=== PATIENT | female | born 1930 ===

== ENCOUNTER 2016-10-21 15:18 | Inpatient (IN) | payer MEDICARE, OTHER ==
[2016-10-21 15:18] VITALS: BMI 27.8
[2016-10-21] MEDS ORDERED: Albuterol-Ipratrop 3 mg / 0.5 (3 ml) UD ONE (15:33)
[2016-10-21] MEDS ORDERED: Albuterol-Ipratrop 3 mg / 0.5 (3 ml) UD IH STA ×3 (15:44→16:59)
[2016-10-21] MEDS ORDERED: Sodium Chloride 0.9% 1,000 ML IV STA (15:51)
--- NOTE | 2016-10-21 15:59 | ED PDOC ---
HPI: SOB/CHF/COPD Time Seen by Provider: 10/21/16 15:26 Chief Complaint (Nursing): Respiratory Distress Chief Complaint (Provider): Respiratory Distress History Per: Patient History/Exam Limitations: no limitations Onset/Duration Of Symptoms: Days (x3) Current Symptoms Are (Timing): Still Present Additional Complaint(s): 15:35 Esther Negrete is an 87 year old female with a past medical history of asthma, type II diabetes, CHF, hypertension, and colitis that presents to the ED with a chief complaint of a productive cough, congestion, shortness of breath, and epigastric abdominal pain that she has been experiencing for the past three days. Patient states that she cannot describe the color of her productive cough , and denies any chest pain and fever. PMD: Amandeep Calhoun MD Past Medical History Reviewed: Historical Data, Nursing Documentation, Vital Signs Vital Signs: Last Vital Signs Temp 101.5 F H 10/21/16 15:41 Pulse 110 H 10/21/16 17:42 Resp 20 10/21/16 17:42 BP 139/60 10/21/16 17:42 Pulse Ox 94 L 10/21/16 16:07 - Medical History PMH: Anxiety, Arthritis, Asthma, Diabetes, HTN, Hypercholesterolemia Denies: HIV, Chronic Kidney Disease - Surgical History Surgical History: Appendectomy - Family History Family History: States: Unknown Family Hx - Home Medications Home Medications: Ambulatory Orders Medication Instructions Recorded Atorvastatin [Lipitor] 10 mg PO HS 10/21/16 Carvedilol [Coreg] 6.25 mg PO Q12 10/21/16 Enalapril Maleate [Vasotec] 10 mg PO DAILY 10/21/16 Ergocalciferol (Vitamin D2) 50,000 unit PO QWK 10/21/16 [Vitamin D2] Furosemide [Lasix] 40 mg PO BID 10/21/16 Insulin Glargine, Recombina 15 unit SC HS 10/21/16 [Lantus] Levothyroxine [Synthroid] 125 mcg PO DAILY 10/21/16 Losartan [Cozaar] 50 mg PO DAILY 10/21/16 Mirtazapine [Remeron] 15 mg PO HS 10/21/16 Montelukast [Singulair] 10 mg PO DAILY 10/21/16 Pantoprazole Sodium [Protonix] 40 mg PO DAILY 10/21/16 Potassium Chloride [K-Dur 20] 20 meq PO DAILY 10/21/16 Zolpidem [Ambien] 5 mg PO HS 10/21/16 - Allergies Allergies/Adverse Reactions: Allergies Allergy/AdvReac Type Severity Reaction Status Date / Time Penicillins Allergy RASH Verified 08/16/16 17:47 Review of Systems Constitutional: Negative for: Fever ENT: Positive for: Nose Congestion Cardiovascular: Negative for: Chest Pain Respiratory: Positive for: Cough, Shortness of Breath Physical Exam - Reviewed Nursing Documentation Reviewed: Yes Vital Signs Reviewed: Yes - Physical Exam Appears: Positive for: Non-toxic, No Acute Distress Head Exam: Positive for: ATRAUMATIC, NORMOCEPHALIC Skin: Positive for: Normal Color, Warm, Dry Cardiovascular/Chest: Positive for: Tachycardia Respiratory: Positive for: Rhonchi (bilaterally), Respiratory Distress (mild) Pulses-Dorsalis Pedis (L): 2+ Pulses-Dorsalis Pedis (R): 2+ Pulses-Post. Tibialis (L): 2+ Pulses-Post. Tibialis (R): 2+ Gastrointestinal/Abdominal: Positive for: Soft, Tenderness (in epigastric area) Extremity: Positive for: Swelling (bilaterally in lower extremities ), Other (1+ /2+ pulses in lower extremities bilaterally). Negative for: Calf Tenderness Neurologic/Psych: Positive for: Alert, Oriented - Laboratory Results Result Diagrams: 10/21/16 16:09 10/21/16 16:09 - ECG O2 Sat by Pulse Oximetry: 94 (RA) Pulse Ox Interpretation: Normal - Critical Care Total Time (In Min): 30 Medical Decision Making Medical Decision Makin:44 Initial Impression: Respiratory Distress/Epigastric Abdominal Pain Initial Plan: * CMP * CBC * Blood Culture * ED Urine Dipstick * Albuterol 3 mL IH * VBG Shock Panel * Chest X-Ray * ECG * Pre Flow Pre/Post Tx * Reevaluation Scribe Attestation: Documented by Leora Ibarra, acting as a scribe for Rubén Diaz MD. Provider Scribe Attestation: All medical record entries made by the Scribe were at my direction and personally dictated by me. I have reviewed the chart and agree that the record accurately reflects my personal performance of the history, physical exam, medical decision making, and the department course for this patient. I have also personally directed, reviewed, and agree with the discharge instructions and disposition. Disposition - Clinical Impression Clinical Impression: Pneumonia, Severe sepsis - Patient ED Disposition Is Patient to be Admitted: Yes - Disposition Disposition Time: 18:08 Condition: GUARDED - Pt Status Changed To: Hospital Disposition Of: Inpatient - Admit Certification Admit to Inpatient:: After my assessment, the patient will require hospitalization for at least two midnights. This is because of the severity of symptoms shown, intensity of services needed, and/or the medical risk in this patient being treated as an outpatient. - POA Present On Arrival: None
[2016-10-21] MEDS ORDERED: Vancomycin 1 g Inj ONE (16:06)
[2016-10-21] MEDS ORDERED: Piperacillin/Tazobact 3.375 gm Inj IVPB ONE (16:06)
[2016-10-21 16:27] LABS: VENOUS BLOOD GAS BASE EXCESS 3.6 mmol/L (0.0-2.0); VENOUS BLOOD GAS PCO2 61 mmHg (40-60); VENOUS BLOOD PH 7.32 (7.32-7.43)
--- NOTE | 2016-10-21 16:30 | RAD ---
HISTORY: Cough COMPARISON: 08/17/2016 FINDINGS: LUNGS: There is bibasilar airspace disease. . PLEURA: There are small pleural effusions the No pneumothorax apparent. CARDIOVASCULAR: Normal. OSSEOUS STRUCTURES: There is degenerative osteoarthrosis in the glenohumeral joints. VISUALIZED UPPER ABDOMEN: Normal. OTHER FINDINGS: None. IMPRESSION: Bibasilar airspace disease and small pleural effusions.
[2016-10-21 16:41] LABS: BASO % 0.2 % (0.0-2.0); BILIRUBIN,TOTAL 0.8 mg/dl (0.2-1.3); CALCIUM 9.2 mg/dL (8.4-10.2); EOS % 0.2 % (0.0-4.0); HEMATOCRIT 38.6 % (34.0-47.0); LYMPH # 1.8 K/uL (1.0-4.3); LYMPH % 14.1 % (20.0-40.0); MEAN CELL VOLUME 87.5 fl (81.0-99.0); MEAN CORPUSCULAR HEMOGLOBIN 27.3 pg (27.0-31.0); MEAN CORPUSCULAR HGB CONC 31.2 g/dL (33.0-37.0); MEAN PLATELET VOLUME 8.8 fl (7.2-11.7); MONO # 0.6 K/uL (0.0-0.8); MONO % 4.9 % (0.0-10.0); NEUT # 10.3 K/uL (1.8-7.0); NEUT % 80.6 % (50.0-75.0); NRBC % 0.1 % (0.0-0.0); RED CELL DISTRIBUTION WIDTH 16.5 % (11.5-14.5); TOTAL PROTEIN 8.3 G/DL (6.3-8.2); WHITE BLOOD COUNT 12.7 K/uL (4.8-10.8)
--- NOTE | 2016-10-21 17:56 | CT ---
PROCEDURE: CT Abdomen and Pelvis without intravenous contrast HISTORY: r/o kidney stone COMPARISON: 08/16/2016 TECHNIQUE: CT scan of the abdomen and pelvis was performed without intravenous administration of contrast. Oral contrast was not administered. Coronal and sagittal reformatted images were obtained. Radiation dose: Total exam DLP = 879.24 mGy-cm. FINDINGS: LOWER THORAX: There is interval development of confluent airspace disease in the right lower lobe and to a lesser extent in the left lower lobe. LIVER: The liver is normal in size. There is no biliary ductal dilatation. GALLBLADDER AND BILE DUCTS: There is a tiny calcified gallstone. PANCREAS: There is mild diffuse atrophy of the pancreas. No calcifications or ductal dilatation. SPLEEN: The spleen is normal in size. ADRENALS: Both adrenal glands are normal in size without discrete nodule. KIDNEYS AND URETERS: There is mild cortical atrophy in both kidneys. No hydronephrosis or nephrolithiasis. There is a probable tiny hemorrhagic cyst in the right kidney and a small exophytic cortical cyst in the left kidney. VASCULATURE: The aorta is normal in caliber. BOWEL: The small bowel loops are normal in caliber. There is mild sigmoid diverticulosis without CT evidence for acute diverticulitis. APPENDIX: No evidence of inflammatory changes in the right lower quadrant. The appendix is surgically absent. PERITONEUM: No free fluid. No free air. LYMPH NODES: No enlarged lymph nodes. BLADDER: Grossly normal in appearance. REPRODUCTIVE: There is age-appropriate atrophy of the uterus. No adnexal masses. . BONES: Status post bilateral hip arthroplasty. No acute fracture. OTHER FINDINGS: None. IMPRESSION: 1. No acute abdominal or pelvic abnormality. Mild sigmoid diverticulosis without CT evidence for acute diverticulitis. No evidence of bowel obstruction. 2. Suspect right lower lobe pneumonia and also suspected is mild left lower lobe pneumonia.
[2016-10-21] MEDS ORDERED: Aztreonam 1 GM in Sodium Chloride 0.9% 100 ML IVPB STA (18:04)
[2016-10-21] MEDS ORDERED: Ciprofloxacin 400mg/200ml D5W 200 ML IVPB STA (18:06)
[2016-10-21] MEDS ORDERED: Ciprofloxacin 400mg/200ml D5W 200 ML IVPB ONE (18:24)
--- NOTE | 2016-10-21 18:48 | CP.CCUPN ---
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 In ER, found to be febrile to 101.5F, BP 130/ 68, HR 125, RR 20-25, 91% on RA. Subsequently placed on BIPAP support, 10/5 40% with 95% SPO2. Poor historian and primarily moaning now, had c/o abdominal discomfort earlier and underwent non-contrast CTAP with no significant abd pathology to account for abd discomfort. CTAP confirmed bilateral lower lobe R worse than L pneumonitis. In ER, given empiric doses of Vanco, Cipro and Azactam. She is penicillin allergic. No indwelling [place] noted from [place]. IVFs started with NSS, no fluid challenges given. [place] Meds: Ambien, Coreg, Losartan, Vasotec, KCL, Lasix, Lipitor, Protonix, Remeron, Singulair, Synthroid, Lantus, Vit D. PMH: Asthma, DM II, HTN, Hyperlipidemia, Colitis with diarrhea, L hip repair 2016. SH: denies tobacco, nor any h/o ETOH use. FH: no significant early deaths from heart, liver, kidney, pulm or cancer disease. ROS: as above , no other pertinent negs or positives on 12 system review. No other distress noted: EXAM- HEENT: no icterus, pupils equal and reactive, no nystagmus NECK: no visible JVD, supple, carotids equal upstroke bilat/no bruits CHEST: decreased BS bases, no wheezes audible HEART: regular, distant, S1S2, no murmur audible, no rubs. ABD: soft, no increased distention, no focal tenderness, no HSM. BS hypoactive , EXT: legs show + edema, no peripheral/ digital cyanosis, no calf tenderness or palpable cords, distal pulses intact and symmetrical NEURO: no gross focal motor deficits. 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 CTAP sC: results reviewed / film reviewed. Assessment / Major Problems: 1. Acute Resp Insuff 2 Pneumonitis 2. Sepsis without Shock state 3. Azotemia / Dehydration, r/o VERITO 4. Uncontrolled DMII, r/o hyperosmolar state 5. Azotemia, r/o VERITO versus CKD PLAN: 1. Full resuscitation status noted, on BiPAP support now. Check ABG. Advance to MV support if deteriorates further unless other Advance Directives known. 2. Mild anasarca noted, but no other clinical CHF evident, would continue hydration and fluid challenge prn for any oliguria. 3. Empiric abx coverage noted. Blood cultures obtained in ER. Get urine cx, and sputum cx if feasible. 4. Elevated lactate 2 hypoxemia, no hypotension / shock state nor other evidence of hypoperfusion noted. Repeat 4H Lactate pending. 5. Hold ARB,and ACEi, K supplements, Remeron, Ambien for now. 6. Obtain serum osmolality, maintain normoglycemia. 7. TFTs with TSH and free t4 8. Continue Duonebs for now. IV Steroids if hypercapnia / wheezing evident.
[2016-10-21] MEDS: Albuterol-Ipratrop 3 mg / 0.5 (3 ml) UD INH SCH (20:08)
[2016-10-21] MEDS: Aztreonam 1 GM in Sodium Chloride 0.9% 100 ML IVPB SCH (21:26)
[2016-10-21 21:27] LABS: FREE T4 2.27 ng/dL (0.78-2.19)
[2016-10-21 22:59] LABS: RBC URINE 2 /hpf (0-3); URINE BACTERIA RARE (<OCC); URINE BILIRUBIN NEGATIVE (NEGATIVE); URINE BLOOD NEGATIVE (NEGATIVE); URINE COLOR AMBER (YELLOW); URINE GLUCOSE (UA) 50 mg/dL (Normal); URINE KETONE NEGATIVE (NEGATIVE); URINE LEUKOCYTE ESTERASE NEG Leu/uL (Negative); URINE PROTEIN 30 mg/dL (NEGATIVE); URINE UROBILINOGEN 0.2-1.0 mg/dL (0.2-1.0); WBC URINE 1 /hpf (0-5)
[2016-10-21] MEDS: Insulin Regular 100 units/ml SC SCH (23:29)
[2016-10-22 02:52] LABS: ABG ALLEN TEST YES; ABG MECHANICAL RATE 16; ARTERIAL BLOOD GAS HCO3 25.6 mmol/L (21-28); ARTERIAL BLOOD GAS MODE BiPAP; ARTERIAL BLOOD GAS O2 CAPACITY 13.3 mL/dL (16-24); ARTERIAL BLOOD GAS O2 CONTENT 12.6 ML/dL (15-23); ARTERIAL BLOOD GAS PO2 61 mm/Hg (80-100); ARTERIAL BLOOD HGB O2 SAT 92.4 % (95.0-98.0); CARBOXYHEMOGLOBIN 1.6 % (0.5-1.5)
[2016-10-22 05:03] LABS: ABG ALLEN TEST YES; ABG MECHANICAL RATE 16; ARTERIAL BLOOD GAS HCO3 25.1 mmol/L (21-28); ARTERIAL BLOOD GAS MODE BiPAP; ARTERIAL BLOOD GAS O2 CAPACITY 13.1 mL/dL (16-24); ARTERIAL BLOOD GAS O2 CONTENT 12.7 ML/dL (15-23); ARTERIAL BLOOD GAS PH 7.36 (7.35-7.45); ARTERIAL BLOOD GAS PO2 72 mm/Hg (80-100); ARTERIAL BLOOD HGB O2 SAT 94.4 % (95.0-98.0); CARBOXYHEMOGLOBIN 1.3 % (0.5-1.5); HHB 3.1 % (0.0-5.0); METHEMOGLOBIN 1.3 % (0.0-3.0)
[2016-10-22] MEDS ORDERED: DOPamine 400mg/250ml D5W 250 ML IV ONE (06:43)
[2016-10-22] MEDS: Insulin Regular 100 units/ml SC SCH ×4 (06:45→22:31)
[2016-10-22] MEDS: Albuterol-Ipratrop 3 mg / 0.5 (3 ml) UD INH SCH ×4 (07:29→19:44)
[2016-10-22 07:32] LABS: ALB/GLOB RATIO 1.1 (1.0-2.1); BILIRUBIN,TOTAL 0.6 mg/dl (0.2-1.3); CALCIUM 8.5 mg/dL (8.4-10.2); POTASSIUM 4.8 MMOL/L (3.6-5.0); TOTAL PROTEIN 7.1 G/DL (6.3-8.2)
[2016-10-22 07:41] LABS: PARTIAL THROMBOPLASTIN TIME 33.1 SECONDS (23.3-32.5)
[2016-10-22 07:44] LABS: BASO % 0.4 % (0.0-2.0); EOS % 0.1 % (0.0-4.0); HEMATOCRIT 30.8 % (34.0-47.0); LYMPH # 1.2 K/uL (1.0-4.3); LYMPH % 25.3 % (20.0-40.0); MEAN CORPUSCULAR HGB CONC 31.6 g/dL (33.0-37.0); MEAN PLATELET VOLUME 9.1 fl (7.2-11.7); MONO # 0.3 K/uL (0.0-0.8); NEUT # 3.3 K/uL (1.8-7.0); NEUT % 67.2 % (50.0-75.0); NRBC % 0.1 % (0.0-0.0); RED CELL DISTRIBUTION WIDTH 16.1 % (11.5-14.5)
[2016-10-22 07:45] LABS: MEAN CELL VOLUME 85.3 fl (81.0-99.0); WHITE BLOOD COUNT 4.9 K/uL (4.8-10.8)
[2016-10-22] MEDS ORDERED: Midazolam 2 MG/2 ML VIAL IV ONE ×2 (09:25→13:26)
[2016-10-22] MEDS ORDERED: Midazolam 2 MG/2 ML VIAL ONE (09:27)
--- NOTE | 2016-10-22 09:44 | RAD ---
HISTORY: f/u [facility] COMPARISON: No prior. FINDINGS: LUNGS: Bilateral lower lobe infiltrates right greater than left. Central pulmonary vasculature is slightly increased. PLEURA: No significant pleural effusion identified, no pneumothorax apparent. CARDIOVASCULAR: Cardiomegaly. OSSEOUS STRUCTURES: Degenerative changes both shoulder girdles. VISUALIZED UPPER ABDOMEN: Normal. OTHER FINDINGS: None. IMPRESSION: Bilateral lower lobe infiltrates right greater than left
--- NOTE | 2016-10-22 10:19 | CP.CCUPN ---
CCU Subjective - Physician Review Events Since Last Encounter (Free Text): 10/22/16 10:12 awake and responsive, on Bipap, maintaining sat > 95%, was hypotensive last night, dopamin infusion was started last night through a peripheral line, pt needed a central line , I was about to do it but nursing surgical services director asked if she could do it she needed more procedure and she performed the procedure while I was in the room with her supervising her. Procedure went uneventful although pt needed ativan and versed as she was not cooperative and was restless. Waiting for CXR to confirm the placement and to r/p pneumo before using it. Pt has ST on dopamine , will siwtch to levophed and if TC persisted , will switch to neosynephrine. MARK has been well manintained but due to hypotensive episodes, alctic acid is still high, also due to ATN, pt is oliguric and has rising bun/ rn or lpn. Pt was givem 1700 cc NS until last night with no urine output, will do renal US or bladder scan to r/o obstruction, which is not likley. Will not give more fluid , rather she needs diuretics has she has pulm congestion, with h/o cardiomyopathy and low EF. CCU Objective - Vital Signs / Intake & Output Vital Signs (Last 4 hours): Vital Signs Temp Pulse Resp BP Pulse Ox 10/22/16 08:00 99.5 F 133 H 22 112/54 L 92 L 10/22/16 07:30 136 H Intake and Output (Last 8hrs): Intake & Output 10/21/16 10/22/16 10/22/16 22:59 06:59 14:59 Intake Total 300 433 Output Total 40 Balance 300 393 Weight 160 lb Intake: IV 200 408 Intake, Piggyback 100 Oral 25 Output: Urine 40 Urethral ([place]) 40 - Physical Exam Narrative Physical Exam (Free Text): 10/22/16 10:19 P/E Necj: JVD:+ve Lungss' Scattered ronchi, bilateral basal crackles Abdomen: soft, non-tender Ext: No edema heart: no gallop Ext: no edema - Medications Active Medications: Active Medications Generic Name Dose Route Start Last Admin Trade Name Freq PRN Reason Stop Dose Admin Acetaminophen 650 mg 10/22/16 05:22 10/22/16 05:00 Tylenol 650 Mg Supp [place] 650 mg Q6 PRN Administration Fever >100.4 F Albuterol/Ipratropium 3 ml 10/21/16 20:00 10/22/16 07:29 Duoneb 3 Mg/0.5 Mg (3 Ml) Ud INH 3 ml RQID MEERA Administration Heparin Sodium (Porcine) 5,000 units 10/21/16 21:00 10/22/16 08:31 Heparin SC 5,000 units Q12 MEERA Administration Protocol Aztreonam 1 gm/ Sodium 100 mls @ 100 mls/hr 10/21/16 21:00 10/21/16 21:26 Chloride IVPB Not Given Q12 MEERA Ciprofloxacin 200 mls @ 200 mls/hr 10/22/16 09:00 Cipro 400mg/200ml Dsw IVPB DAILY [facility] Dopamine HCl/Dextrose 250 mls @ 13.608 mls/hr 10/22/16 06:43 10/22/16 06:49 Dopamine 400mg/250ml D5w IV 10/23/16 01:05 13.608 mls/hr .[id number] ONE Administration Protocol 5 MCG/KG/MIN Insulin Human Regular 0 units 10/21/16 23:00 10/22/16 06:45 Humulin R SC 3 u ACCU-CHECK [facility] Administration Protocol Morphine Sulfate 1 mg 10/21/16 21:13 10/21/16 21:21 Morphine IVP 1 mg Q6 PRN Administration Pain, severe (8-10) Pantoprazole Sodium 40 mg 10/22/16 09:00 10/22/16 08:31 Protonix Inj IVP 40 mg DAILY [facility] Administration - Patient Studies Lab Studies: Lab Studies 10/22/16 10/22/16 10/22/16 Range/Units 06:00 05:14 04:48 WBC 4.9 D (4.8-10.8) K/uL RBC 3.61 L (3.80-5.20) Mil/uL Hgb 9.7 L D (12.0-16.0) g/dL Hct 30.8 L (34.0-47.0) % MCV 85.3 D (81.0-99.0) fl MCH 27.0 (27.0-31.0) pg MCHC 31.6 L (33.0-37.0) g/dL RDW 16.1 H (11.5-14.5) % Plt Count 168 (130-400) K/uL MPV 9.1 (7.2-11.7) fl Neut % (Auto) 67.2 (50.0-75.0) % Lymph % (Auto) 25.3 (20.0-40.0) % Ross % (Auto) 7.0 (0.0-10.0) % Eos % (Auto) 0.1 (0.0-4.0) % Baso % (Auto) 0.4 (0.0-2.0) % Neut # 3.3 (1.8-7.0) K/uL Lymph # 1.2 (1.0-4.3) K/uL Ross # 0.3 (0.0-0.8) K/uL Eos # 0.0 (0.0-0.7) K/uL Baso # 0.0 (0.0-0.2) K/uL PT 13.6 H (9.6-11.2) SECONDS INR 1.31 H (0.92-1.08) APTT 33.1 H (23.3-32.5) SECONDS pCO2 46 H (35-45) mm/Hg pO2 72 L (80-100) mm/Hg HCO3 25.1 (21-28) mmol/L ABG pH 7.36 (7.35-7.45) ABG Total CO2 27.4 (22-28) mmol/L ABG O2 Saturation 96.8 (95-98) % ABG O2 Content 12.7 L (15-23) ML/dL ABG Base Excess 0.3 (-2.0-3.0) mmol/L ABG Hemoglobin 9.5 L (11.7-17.4) g/dL ABG Carboxyhemoglobin 1.3 (0.5-1.5) % POC ABG HHb (Measured) 3.1 (0.0-5.0) % ABG Methemoglobin 1.3 (0.0-3.0) % ABG O2 Capacity 13.1 L (16-24) mL/dL Tony Test Yes A-a O2 Difference 298.0 mm/Hg Hgb O2 Saturation 94.4 L (95.0-98.0) % Vent Mode Bipap Mechanical Rate 16 FiO2 60.0 % Inspiratory BiPAP 12 Expiratory BiPAP 6 Blood Gas Notified Time 503 Sodium 134 (132-148) mmol/l Potassium 4.8 (3.6-5.0) MMOL/L Chloride 94 L (98-107) mmol/L Carbon Dioxide 26 (22-30) mmol/L Anion Gap 19 (10-20) BUN 46 H (7-17) mg/dl Creatinine 3.9 H (0.7-1.2) mg/dL Est GFR ( Amer) 13 Est GFR (Non-Af Amer) 11 POC Glucose (mg/dL) 266 H (65-110) mg/dL Random Glucose 345 H (65-105) mg/dL Serum Osmolality 310 H (272-300) mosm/kg Lactic Acid (0.7-2.1) MMOL/L Calcium 8.5 (8.4-10.2) mg/dL Total Bilirubin 0.6 (0.2-1.3) mg/dl AST 26 (14-36) U/L ALT 28 (9-52) U/L Alkaline Phosphatase 62 (38-126) U/L Total Protein 7.1 (6.3-8.2) G/DL Albumin 3.7 (3.5-5.0) g/dL Globulin 3.4 (2.2-3.9) gm/dL Albumin/Globulin Ratio 1.1 (1.0-2.1) Free T4 (0.78-2.19) ng/dL TSH 3rd Generation (0.46-4.68) mIU/ML Urine Color (YELLOW) Urine Clarity (Clear) Urine pH (5.0-8.0) Ur Specific [place] (1.003-1.030) Urine Protein (NEGATIVE) mg/dL Urine Glucose (UA) (Normal) mg/dL Urine Ketones (NEGATIVE) mg/dL Urine Blood (NEGATIVE) Urine Nitrate (NEGATIVE) Urine Bilirubin (NEGATIVE) Urine Urobilinogen (0.2-1.0) mg/dL Ur Leukocyte Esterase (Negative) [place]/uL Urine RBC (Auto) (0-3) /hpf Urine Microscopic WBC (0-5) /hpf Ur Squamous Epith Cells (0-5) /hpf Urine Bacteria (<OCC) Hyaline Casts (0-2) /hpf Influenza Typ A,B (EIA) (NEGATIVE) 10/22/16 10/22/16 10/21/16 Range/Units 03:18 02:49 22:19 WBC (4.8-10.8) K/uL RBC (3.80-5.20) Mil/uL Hgb (12.0-16.0) g/dL Hct (34.0-47.0) % MCV (81.0-99.0) fl MCH (27.0-31.0) pg MCHC (33.0-37.0) g/dL RDW (11.5-14.5) % Plt Count (130-400) K/uL MPV (7.2-11.7) fl Neut % (Auto) (50.0-75.0) % Lymph % (Auto) (20.0-40.0) % Ross % (Auto) (0.0-10.0) % Eos % (Auto) (0.0-4.0) % Baso % (Auto) (0.0-2.0) % Neut # (1.8-7.0) K/uL Lymph # (1.0-4.3) K/uL Ross # (0.0-0.8) K/uL Eos # (0.0-0.7) K/uL Baso # (0.0-0.2) K/uL PT (9.6-11.2) SECONDS INR (0.92-1.08) APTT (23.3-32.5) SECONDS pCO2 42 (35-45) mm/Hg pO2 61 L (80-100) mm/Hg HCO3 25.6 (21-28) mmol/L ABG pH 7.40 (7.35-7.45) ABG Total CO2 27.3 (22-28) mmol/L ABG O2 Saturation 94.9 L (95-98) % ABG O2 Content 12.6 L (15-23) ML/dL ABG Base Excess 1.0 (-2.0-3.0) mmol/L ABG Hemoglobin 9.7 L (11.7-17.4) g/dL ABG Carboxyhemoglobin 1.6 H (0.5-1.5) % POC ABG HHb (Measured) 5.0 (0.0-5.0) % ABG Methemoglobin 1.0 (0.0-3.0) % ABG O2 Capacity 13.3 L (16-24) mL/dL Tony Test Yes A-a O2 Difference 172.0 mm/Hg Hgb O2 Saturation 92.4 L (95.0-98.0) % Vent Mode Bipap Mechanical Rate 16 FiO2 40.0 % Inspiratory BiPAP 12 Expiratory BiPAP 6 Blood Gas Notified Time 252 Sodium (132-148) mmol/l Potassium (3.6-5.0) MMOL/L Chloride (98-107) mmol/L Carbon Dioxide (22-30) mmol/L Anion Gap (10-20) BUN (7-17) mg/dl Creatinine (0.7-1.2) mg/dL Est GFR ( Amer) Est GFR (Non-Af Amer) POC Glucose (mg/dL) (65-110) mg/dL Random Glucose (65-105) mg/dL Serum Osmolality (272-300) mosm/kg Lactic Acid 4.4 H* (0.7-2.1) MMOL/L Calcium (8.4-10.2) mg/dL Total Bilirubin (0.2-1.3) mg/dl AST (14-36) U/L ALT (9-52) U/L Alkaline Phosphatase (38-126) U/L Total Protein (6.3-8.2) G/DL Albumin (3.5-5.0) g/dL Globulin (2.2-3.9) gm/dL Albumin/Globulin Ratio (1.0-2.1) Free T4 (0.78-2.19) ng/dL TSH 3rd Generation (0.46-4.68) mIU/ML Urine Color Isabel (YELLOW) Urine Clarity Cloudy (Clear) Urine pH 5.0 (5.0-8.0) Ur Specific [place] 1.021 (1.003-1.030) Urine Protein 30 (NEGATIVE) mg/dL Urine Glucose (UA) 50 (Normal) mg/dL Urine Ketones Negative (NEGATIVE) mg/dL Urine Blood Negative (NEGATIVE) Urine Nitrate Negative (NEGATIVE) Urine Bilirubin Negative (NEGATIVE) Urine Urobilinogen 0.2-1.0 (0.2-1.0) mg/dL Ur Leukocyte Esterase Neg (Negative) [place]/uL Urine RBC (Auto) 2 (0-3) /hpf Urine Microscopic WBC 1 (0-5) /hpf Ur Squamous Epith Cells < 1 (0-5) /hpf Urine Bacteria Rare (<OCC) Hyaline Casts 3-5 H (0-2) /hpf Influenza Typ A,B (EIA) (NEGATIVE) 10/21/16 10/21/16 10/21/16 Range/Units 22:10 20:50 19:54 WBC (4.8-10.8) K/uL RBC (3.80-5.20) Mil/uL Hgb (12.0-16.0) g/dL Hct (34.0-47.0) % MCV (81.0-99.0) fl MCH (27.0-31.0) pg MCHC (33.0-37.0) g/dL RDW (11.5-14.5) % Plt Count (130-400) K/uL MPV (7.2-11.7) fl Neut % (Auto) (50.0-75.0) % Lymph % (Auto) (20.0-40.0) % Ross % (Auto) (0.0-10.0) % Eos % (Auto) (0.0-4.0) % Baso % (Auto) (0.0-2.0) % Neut # (1.8-7.0) K/uL Lymph # (1.0-4.3) K/uL Ross # (0.0-0.8) K/uL Eos # (0.0-0.7) K/uL Baso # (0.0-0.2) K/uL PT (9.6-11.2) SECONDS INR (0.92-1.08) APTT (23.3-32.5) SECONDS pCO2 (35-45) mm/Hg pO2 (80-100) mm/Hg HCO3 (21-28) mmol/L ABG pH (7.35-7.45) ABG Total CO2 (22-28) mmol/L ABG O2 Saturation (95-98) % ABG O2 Content (15-23) ML/dL ABG Base Excess (-2.0-3.0) mmol/L ABG Hemoglobin (11.7-17.4) g/dL ABG Carboxyhemoglobin (0.5-1.5) % POC ABG HHb (Measured) (0.0-5.0) % ABG Methemoglobin (0.0-3.0) % ABG O2 Capacity (16-24) mL/dL Tony Test A-a O2 Difference mm/Hg Hgb O2 Saturation (95.0-98.0) % Vent Mode Mechanical Rate FiO2 % Inspiratory BiPAP Expiratory BiPAP Blood Gas Notified Time Sodium (132-148) mmol/l Potassium (3.6-5.0) MMOL/L Chloride (98-107) mmol/L Carbon Dioxide (22-30) mmol/L Anion Gap (10-20) BUN (7-17) mg/dl Creatinine (0.7-1.2) mg/dL Est GFR ( Amer) Est GFR (Non-Af Amer) POC Glucose (mg/dL) 292 H (65-110) mg/dL Random Glucose (65-105) mg/dL Serum Osmolality (272-300) mosm/kg Lactic Acid 2.6 H (0.7-2.1) MMOL/L Calcium (8.4-10.2) mg/dL Total Bilirubin (0.2-1.3) mg/dl AST (14-36) U/L ALT (9-52) U/L Alkaline Phosphatase (38-126) U/L Total Protein (6.3-8.2) G/DL Albumin (3.5-5.0) g/dL Globulin (2.2-3.9) gm/dL Albumin/Globulin Ratio (1.0-2.1) Free T4 (0.78-2.19) ng/dL TSH 3rd Generation (0.46-4.68) mIU/ML Urine Color (YELLOW) Urine Clarity (Clear) Urine pH (5.0-8.0) Ur Specific [place] (1.003-1.030) Urine Protein (NEGATIVE) mg/dL Urine Glucose (UA) (Normal) mg/dL Urine Ketones (NEGATIVE) mg/dL Urine Blood (NEGATIVE) Urine Nitrate (NEGATIVE) Urine Bilirubin (NEGATIVE) Urine Urobilinogen (0.2-1.0) mg/dL Ur Leukocyte Esterase (Negative) [place]/uL Urine RBC (Auto) (0-3) /hpf Urine Microscopic WBC (0-5) /hpf Ur Squamous Epith Cells (0-5) /hpf Urine Bacteria (<OCC) Hyaline Casts (0-2) /hpf Influenza Typ A,B (EIA) Negative for flu a/b (NEGATIVE) 10/21/16 Range/Units 19:00 WBC (4.8-10.8) K/uL RBC (3.80-5.20) Mil/uL Hgb (12.0-16.0) g/dL Hct (34.0-47.0) % MCV (81.0-99.0) fl MCH (27.0-31.0) pg MCHC (33.0-37.0) g/dL RDW (11.5-14.5) % Plt Count (130-400) K/uL MPV (7.2-11.7) fl Neut % (Auto) (50.0-75.0) % Lymph % (Auto) (20.0-40.0) % Ross % (Auto) (0.0-10.0) % Eos % (Auto) (0.0-4.0) % Baso % (Auto) (0.0-2.0) % Neut # (1.8-7.0) K/uL Lymph # (1.0-4.3) K/uL Ross # (0.0-0.8) K/uL Eos # (0.0-0.7) K/uL Baso # (0.0-0.2) K/uL PT (9.6-11.2) SECONDS INR (0.92-1.08) APTT (23.3-32.5) SECONDS pCO2 (35-45) mm/Hg pO2 (80-100) mm/Hg HCO3 (21-28) mmol/L ABG pH (7.35-7.45) ABG Total CO2 (22-28) mmol/L ABG O2 Saturation (95-98) % ABG O2 Content (15-23) ML/dL ABG Base Excess (-2.0-3.0) mmol/L ABG Hemoglobin (11.7-17.4) g/dL ABG Carboxyhemoglobin (0.5-1.5) % POC ABG HHb (Measured) (0.0-5.0) % ABG Methemoglobin (0.0-3.0) % ABG O2 Capacity (16-24) mL/dL Tony Test A-a O2 Difference mm/Hg Hgb O2 Saturation (95.0-98.0) % Vent Mode Mechanical Rate FiO2 % Inspiratory BiPAP Expiratory BiPAP Blood Gas Notified Time Sodium (132-148) mmol/l Potassium (3.6-5.0) MMOL/L Chloride (98-107) mmol/L Carbon Dioxide (22-30) mmol/L Anion Gap (10-20) BUN (7-17) mg/dl Creatinine (0.7-1.2) mg/dL Est GFR ( Amer) Est GFR (Non-Af Amer) POC Glucose (mg/dL) (65-110) mg/dL Random Glucose (65-105) mg/dL Serum Osmolality 313 H (272-300) mosm/kg Lactic Acid (0.7-2.1) MMOL/L Calcium (8.4-10.2) mg/dL Total Bilirubin (0.2-1.3) mg/dl AST (14-36) U/L ALT (9-52) U/L Alkaline Phosphatase (38-126) U/L Total Protein (6.3-8.2) G/DL Albumin (3.5-5.0) g/dL Globulin (2.2-3.9) gm/dL Albumin/Globulin Ratio (1.0-2.1) Free T4 2.27 H (0.78-2.19) ng/dL TSH 3rd Generation 2.16 (0.46-4.68) mIU/ML Urine Color (YELLOW) Urine Clarity (Clear) Urine pH (5.0-8.0) Ur Specific [place] (1.003-1.030) Urine Protein (NEGATIVE) mg/dL Urine Glucose (UA) (Normal) mg/dL Urine Ketones (NEGATIVE) mg/dL Urine Blood (NEGATIVE) Urine Nitrate (NEGATIVE) Urine Bilirubin (NEGATIVE) Urine Urobilinogen (0.2-1.0) mg/dL Ur Leukocyte Esterase (Negative) [place]/uL Urine RBC (Auto) (0-3) /hpf Urine Microscopic WBC (0-5) /hpf Ur Squamous Epith Cells (0-5) /hpf Urine Bacteria (<OCC) Hyaline Casts (0-2) /hpf Influenza Typ A,B (EIA) (NEGATIVE) Laboratory Results - last 24 hr 10/21/16 10/21/16 10/21/16 19:00 19:54 20:50 WBC RBC Hgb Hct MCV MCH MCHC RDW Plt Count MPV Neut % (Auto) Lymph % (Auto) Ross % (Auto) Eos % (Auto) Baso % (Auto) Neut # Lymph # Ross # Eos # Baso # PT INR APTT pCO2 pO2 HCO3 ABG pH ABG Total CO2 ABG O2 Saturation ABG O2 Content ABG Base Excess ABG Hemoglobin ABG Carboxyhemoglobin POC ABG HHb (Measured) ABG Methemoglobin ABG O2 Capacity Tony Test A-a O2 Difference Hgb O2 Saturation Vent Mode Mechanical Rate FiO2 Inspiratory BiPAP Expiratory BiPAP Blood Gas Notified Time Sodium Potassium Chloride Carbon Dioxide Anion Gap BUN Creatinine Est GFR ( Amer) Est GFR (Non-Af Amer) POC Glucose (mg/dL) 292 H Random Glucose Serum Osmolality 313 H Lactic Acid 2.6 H Calcium Total Bilirubin AST ALT Alkaline Phosphatase Total Protein Albumin Globulin Albumin/Globulin Ratio Free T4 2.27 H TSH 3rd Generation 2.16 Urine Color Urine Clarity Urine pH Ur Specific [place] Urine Protein Urine Glucose (UA) Urine Ketones Urine Blood Urine Nitrate Urine Bilirubin Urine Urobilinogen Ur Leukocyte Esterase Urine RBC (Auto) Urine Microscopic WBC Ur Squamous Epith Cells Urine Bacteria Hyaline Casts Influenza Typ A,B (EIA) 10/21/16 10/21/16 10/22/16 22:10 22:19 02:49 WBC RBC Hgb Hct MCV MCH MCHC RDW Plt Count MPV Neut % (Auto) Lymph % (Auto) Ross % (Auto) Eos % (Auto) Baso % (Auto) Neut # Lymph # Ross # Eos # Baso # PT INR APTT pCO2 42 pO2 61 L HCO3 25.6 ABG pH 7.40 ABG Total CO2 27.3 ABG O2 Saturation 94.9 L ABG O2 Content 12.6 L ABG Base Excess 1.0 ABG Hemoglobin 9.7 L ABG Carboxyhemoglobin 1.6 H POC ABG HHb (Measured) 5.0 ABG Methemoglobin 1.0 ABG O2 Capacity 13.3 L Tony Test Yes A-a O2 Difference 172.0 Hgb O2 Saturation 92.4 L Vent Mode Bipap Mechanical Rate 16 FiO2 40.0 Inspiratory BiPAP 12 Expiratory BiPAP 6 Blood Gas Notified Time 252 Sodium Potassium Chloride Carbon Dioxide Anion Gap BUN Creatinine Est GFR ( Amer) Est GFR (Non-Af Amer) POC Glucose (mg/dL) Random Glucose Serum Osmolality Lactic Acid Calcium Total Bilirubin AST ALT Alkaline Phosphatase Total Protein Albumin Globulin Albumin/Globulin Ratio Free T4 TSH 3rd Generation Urine Color Isabel Urine Clarity Cloudy Urine pH 5.0 Ur Specific [place] 1.021 Urine Protein 30 Urine Glucose (UA) 50 Urine Ketones Negative Urine Blood Negative Urine Nitrate Negative Urine Bilirubin Negative Urine Urobilinogen 0.2-1.0 Ur Leukocyte Esterase Neg Urine RBC (Auto) 2 Urine Microscopic WBC 1 Ur Squamous Epith Cells < 1 Urine Bacteria Rare Hyaline Casts 3-5 H Influenza Typ A,B (EIA) Negative for flu a/b 10/22/16 10/22/16 10/22/16 03:18 04:48 05:14 WBC RBC Hgb Hct MCV MCH MCHC RDW Plt Count MPV Neut % (Auto) Lymph % (Auto) Ross % (Auto) Eos % (Auto) Baso % (Auto) Neut # Lymph # Ross # Eos # Baso # PT INR APTT pCO2 46 H pO2 72 L HCO3 25.1 ABG pH 7.36 ABG Total CO2 27.4 ABG O2 Saturation 96.8 ABG O2 Content 12.7 L ABG Base Excess 0.3 ABG Hemoglobin 9.5 L ABG Carboxyhemoglobin 1.3 POC ABG HHb (Measured) 3.1 ABG Methemoglobin 1.3 ABG O2 Capacity 13.1 L Tony Test Yes A-a O2 Difference 298.0 Hgb O2 Saturation 94.4 L Vent Mode Bipap Mechanical Rate 16 FiO2 60.0 Inspiratory BiPAP 12 Expiratory BiPAP 6 Blood Gas Notified Time 503 Sodium Potassium Chloride Carbon Dioxide Anion Gap BUN Creatinine Est GFR ( Amer) Est GFR (Non-Af Amer) POC Glucose (mg/dL) 266 H Random Glucose Serum Osmolality Lactic Acid 4.4 H* Calcium Total Bilirubin AST ALT Alkaline Phosphatase Total Protein Albumin Globulin Albumin/Globulin Ratio Free T4 TSH 3rd Generation Urine Color Urine Clarity Urine pH Ur Specific [place] Urine Protein Urine Glucose (UA) Urine Ketones Urine Blood Urine Nitrate Urine Bilirubin Urine Urobilinogen Ur Leukocyte Esterase Urine RBC (Auto) Urine Microscopic WBC Ur Squamous Epith Cells Urine Bacteria Hyaline Casts Influenza Typ A,B (EIA) 10/22/16 06:00 WBC 4.9 D RBC 3.61 L Hgb 9.7 L D Hct 30.8 L MCV 85.3 D MCH 27.0 MCHC 31.6 L RDW 16.1 H Plt Count 168 MPV 9.1 Neut % (Auto) 67.2 Lymph % (Auto) 25.3 Ross % (Auto) 7.0 Eos % (Auto) 0.1 Baso % (Auto) 0.4 Neut # 3.3 Lymph # 1.2 Ross # 0.3 Eos # 0.0 Baso # 0.0 PT 13.6 H INR 1.31 H APTT 33.1 H pCO2 pO2 HCO3 ABG pH ABG Total CO2 ABG O2 Saturation ABG O2 Content ABG Base Excess ABG Hemoglobin ABG Carboxyhemoglobin POC ABG HHb (Measured) ABG Methemoglobin ABG O2 Capacity Tony Test A-a O2 Difference Hgb O2 Saturation Vent Mode Mechanical Rate FiO2 Inspiratory BiPAP Expiratory BiPAP Blood Gas Notified Time Sodium 134 Potassium 4.8 Chloride 94 L Carbon Dioxide 26 Anion Gap 19 BUN 46 H Creatinine 3.9 H Est GFR ( Amer) 13 Est GFR (Non-Af Amer) 11 POC Glucose (mg/dL) Random Glucose 345 H Serum Osmolality 310 H Lactic Acid Calcium 8.5 Total Bilirubin 0.6 AST 26 ALT 28 Alkaline Phosphatase 62 Total Protein 7.1 Albumin 3.7 Globulin 3.4 Albumin/Globulin Ratio 1.1 Free T4 TSH 3rd Generation Urine Color Urine Clarity Urine pH Ur Specific [place] Urine Protein Urine Glucose (UA) Urine Ketones Urine Blood Urine Nitrate Urine Bilirubin Urine Urobilinogen Ur Leukocyte Esterase Urine RBC (Auto) Urine Microscopic WBC Ur Squamous Epith Cells Urine Bacteria Hyaline Casts Influenza Typ A,B (EIA) Fingerstick Blood Sugar Results: 266 Critical Care Progress Note - Nutrition Nutrition: Nutrition Category Date Time Status NPO Diet [DIET] Diets 10/22/16 Breakfast Active Assessment/Plan - Assessment and Plan (Free Text) Assessment: Septic shock Pnemonia VERITO:ATN Resp failure: hypoxic CHF exacerbation Plan: Change to levophed, Dc dopamin on Cipro and azactam Lasix 40 mg IV one dose now Renal consult On Bipap 07/19 Fio: 0.60
--- NOTE | 2016-10-22 11:00 | RAD ---
HISTORY: insertion subclavian triple-lumen catheter. COMPARISON: Comparison made with plain film radiograph 10/22/2016 at 04:40 hours FINDINGS: LUNGS: Study is limited due to motion artifact and should be repeated. . Bibasilar opacities may represent some combination of atelectasis/infiltrate and effusions. Mild venous congestive changes less well seen. Right IJ central venous line which may be duplicated appearance due to motion artifact. The the tip appears to be located within the SVC however is, as mentioned above, repeat radiograph is suggested to confirm location that PLEURA: No significant pleural effusion identified, no pneumothorax apparent. CARDIOVASCULAR: Cardiomegaly OSSEOUS STRUCTURES: No significant abnormalities. VISUALIZED UPPER ABDOMEN: Normal. OTHER FINDINGS: None. IMPRESSION: Limited motion degraded study. Right IJ central venous line appears duplicated in appearance likely due to motion artifact. The tip of the catheter may be located within the SVC. Repeat radiographs suggested. Cardiomegaly. . Mild venous congestive changes with bilateral lower lobe atelectasis and or infiltrates and bilateral effusions
--- NOTE | 2016-10-22 11:06 | US ---
Bilateral lower extremity venous Doppler 10/21/2016. History: Rule out DVT. Duplex interrogation of the deep veins of the right and left lower extremities performed. No prior study available for comparison. Findings: The visualized deep veins of the right and left lower extremities exhibit normal flow, compressibility augmentation without evidence of DVT Impression: No evidence of DVT seen within the visualized deep veins of the right or left lower extremities.
[2016-10-22] MEDS: Ciprofloxacin 400mg/200ml D5W 200 ML IVPB SCH (13:09)
[2016-10-22] MEDS: Aztreonam 1 GM in Sodium Chloride 0.9% 100 ML IVPB SCH ×2 (13:10→21:10)
[2016-10-22] MEDS ORDERED: HYDROmorphone 0.5 mg/0.5 ml ISec ONE (13:19)
--- NOTE | 2016-10-22 13:20 | RAD ---
PROCEDURE: CHEST RADIOGRAPH, 1 VIEW HISTORY: TLC insertion, to confor location, repeating COMPARISON: Comparison chest 10/22/2016 at 1022 hours. FINDINGS: LUNGS: Right IJ central venous line with tip in the SVC/RA junction. . Central pulmonary vascular congestive changes with bilateral lower lobe alveolar-type infiltrates and bilateral effusions. PLEURA: No apparent pneumothorax CARDIOVASCULAR: Cardiomegaly OSSEOUS STRUCTURES: No significant abnormalities. VISUALIZED UPPER ABDOMEN: Normal. OTHER FINDINGS: None. IMPRESSION: Cardiomegaly. Mild central pulmonary vascular congestive changes with bilateral lower lobe alveolar-type infiltrates and bilateral effusions. In situ right IJ central venous line with tip in the SVC/RA junction. No apparent pneumothorax
[2016-10-22] MEDS ORDERED: HYDROmorphone 0.5 mg/0.5 ml ISec IVP ONE ×2 (13:32→18:30)
--- NOTE | 2016-10-22 15:38 | CP.PCM.CON ---
History of Present Illness - History of Present Illness History of Present Illness: pt seen and examined by me, full consult is dictated #[id number] 1. VERITO 2. PNeumonia 3. sepsis 4. Lactic acidosis f/u c/s iv abx a sper ID check urine lytes, osm, cr, , check FENA consider gentle iv hydration , NS 0.9 % at 60-70 ml/hr d/c lasix Past Patient History - Past Medical History & Family History Past Medical History?: Yes - Past Social History Smoking Status: Never Smoked - CARDIAC Hx Cardiac Disorders: Yes Hx Congestive Heart Failure: Yes (CARDIOMEGALY) Hx Hypercholesterolemia: Yes Hx Hypertension: Yes Hx Peripheral Edema: Yes - PULMONARY Hx Respiratory Disorders: Yes Hx Asthma: Yes - NEUROLOGICAL Hx Neurological Disorder: No - HEENT Hx HEENT Problems: No - RENAL Hx Chronic Kidney Disease: No - ENDOCRINE/METABOLIC Hx Endocrine Disorders: Yes Hx Diabetes Mellitus Type 2: Yes Hx Hypothyroidism: Yes - HEMATOLOGICAL/ONCOLOGICAL Hx Human Immunodeficiency Virus (HIV): No - INTEGUMENTARY Hx Dermatological Problems: No - MUSCULOSKELETAL/RHEUMATOLOGICAL Hx Falls: Yes Hx Osteoarthritis: Yes - GASTROINTESTINAL Hx Gastrointestinal Disorders: No Hx Colitis: Yes Hx Diarrhea: Yes - GENITOURINARY/GYNECOLOGICAL Hx Genitourinary Disorders: No - PSYCHIATRIC Hx Anxiety: Yes Hx Substance Use: No - SURGICAL HISTORY Hx Appendectomy: Yes - ANESTHESIA Hx Anesthesia: Yes Hx Anesthesia Reactions: No Meds Allergies/Adverse Reactions: Allergies Allergy/AdvReac Type Severity Reaction Status Date / Time Penicillins Allergy RASH Verified 08/16/16 17:47 - Medications Medications: Current Medications Acetaminophen (Tylenol 650 Mg Supp) 650 mg VT Q6 PRN PRN Reason: Fever >100.4 F Last Admin: 10/22/16 05:00 Dose: 650 mg Albuterol/Ipratropium (Duoneb 3 Mg/0.5 Mg (3 Ml) Ud) 3 ml INH RQID MEERA Last Admin: 10/22/16 15:21 Dose: 3 ml Furosemide (Lasix) 40 mg IV DAILY MEERA Last Admin: 10/22/16 12:14 Dose: 40 mg Heparin Sodium (Porcine) (Heparin) 5,000 units SC Q12 MEERA PRN Reason: Protocol Last Admin: 10/22/16 08:31 Dose: 5,000 units Aztreonam 1 gm/ Sodium (Chloride) 100 mls @ 100 mls/hr IVPB Q12 MEERA Last Admin: 10/22/16 13:10 Dose: 100 mls/hr Ciprofloxacin (Cipro 400mg/200ml Dsw) 200 mls @ 200 mls/hr IVPB DAILY MEERA Last Admin: 10/22/16 13:09 Dose: 200 mls/hr Dopamine HCl/Dextrose (Dopamine 400mg/250ml D5w) 250 mls @ 13.608 mls/hr IV .[id number] ONE; 5 MCG/KG/MIN PRN Reason: Protocol Stop: 10/23/16 01:05 Last Admin: 10/22/16 06:49 Dose: 13.608 mls/hr Norepinephrine Bitartrate 4 mg (/ Dextrose) 254 mls @ 9.52 mls/hr IV .Q24H MEERA ; 2.5 MCG/MIN PRN Reason: Protocol Last Admin: 10/22/16 13:08 Dose: 9.52 mls/hr Insulin Human Regular (Humulin R) 0 units SC ACCU-CHECK MEERA PRN Reason: Protocol Last Admin: 10/22/16 12:15 Dose: Not Given Morphine Sulfate (Morphine) 1 mg IVP Q6 PRN PRN Reason: Pain, severe (8-10) Last Admin: 10/21/16 21:21 Dose: 1 mg Pantoprazole Sodium (Protonix Inj) 40 mg IVP DAILY [facility] Last Admin: 10/22/16 08:31 Dose: 40 mg Results - Vital Signs Recent Vital Signs: Last Vital Signs Temp 99.8 F H 10/22/16 12:00 Pulse 124 H 10/22/16 15:21 Resp 23 10/22/16 12:00 BP 121/60 10/22/16 12:14 Pulse Ox 95 10/22/16 12:00 - Labs Result Diagrams: 10/22/16 06:00 10/22/16 06:00 Labs: Laboratory Results - last 24 hr 10/21/16 10/21/16 10/21/16 19:00 19:54 20:50 WBC RBC Hgb Hct MCV MCH MCHC RDW Plt Count MPV Neut % (Auto) Lymph % (Auto) [place] % (Auto) Eos % (Auto) Baso % (Auto) Neut # Lymph # [place] # Eos # Baso # PT INR APTT pCO2 pO2 HCO3 ABG pH ABG Total CO2 ABG O2 Saturation ABG O2 Content ABG Base Excess ABG Hemoglobin ABG Carboxyhemoglobin POC ABG HHb (Measured) ABG Methemoglobin ABG O2 Capacity Tony Test A-a O2 Difference Hgb O2 Saturation Vent Mode Mechanical Rate FiO2 Inspiratory BiPAP Expiratory BiPAP Blood Gas Notified Time Sodium Potassium Chloride Carbon Dioxide Anion Gap BUN Creatinine Est GFR ( Amer) Est GFR (Non-Af Amer) POC Glucose (mg/dL) 292 H Random Glucose Serum Osmolality 313 H Lactic Acid 2.6 H Calcium Total Bilirubin AST ALT Alkaline Phosphatase Total Protein Albumin Globulin Albumin/Globulin Ratio Free T4 2.27 H TSH 3rd Generation 2.16 Urine Color Urine Clarity Urine pH Ur Specific [place] Urine Protein Urine Glucose (UA) Urine Ketones Urine Blood Urine Nitrate Urine Bilirubin Urine Urobilinogen Ur Leukocyte Esterase Urine RBC (Auto) Urine Microscopic WBC Ur Squamous Epith Cells Urine Bacteria Hyaline Casts Influenza Typ A,B (EIA) 10/21/16 10/21/16 10/22/16 22:10 22:19 02:49 WBC RBC Hgb Hct MCV MCH MCHC RDW Plt Count MPV Neut % (Auto) Lymph % (Auto) [place] % (Auto) Eos % (Auto) Baso % (Auto) Neut # Lymph # [place] # Eos # Baso # PT INR APTT pCO2 42 pO2 61 L HCO3 25.6 ABG pH 7.40 ABG Total CO2 27.3 ABG O2 Saturation 94.9 L ABG O2 Content 12.6 L ABG Base Excess 1.0 ABG Hemoglobin 9.7 L ABG Carboxyhemoglobin 1.6 H POC ABG HHb (Measured) 5.0 ABG Methemoglobin 1.0 ABG O2 Capacity 13.3 L Tony Test Yes A-a O2 Difference 172.0 Hgb O2 Saturation 92.4 L Vent Mode Bipap Mechanical Rate 16 FiO2 40.0 Inspiratory BiPAP 12 Expiratory BiPAP 6 Blood Gas Notified Time 252 Sodium Potassium Chloride Carbon Dioxide Anion Gap BUN Creatinine Est GFR ( Amer) Est GFR (Non-Af Amer) POC Glucose (mg/dL) Random Glucose Serum Osmolality Lactic Acid Calcium Total Bilirubin AST ALT Alkaline Phosphatase Total Protein Albumin Globulin Albumin/Globulin Ratio Free T4 TSH 3rd Generation Urine Color [place] Urine Clarity Cloudy Urine pH 5.0 Ur Specific [place] 1.021 Urine Protein 30 Urine Glucose (UA) 50 Urine Ketones Negative Urine Blood Negative Urine Nitrate Negative Urine Bilirubin Negative Urine Urobilinogen 0.2-1.0 Ur Leukocyte Esterase Neg Urine RBC (Auto) 2 Urine Microscopic WBC 1 Ur Squamous Epith Cells < 1 Urine Bacteria Rare Hyaline Casts 3-5 H Influenza Typ A,B (EIA) Negative for flu a/b 10/22/16 10/22/16 10/22/16 03:18 04:48 05:14 WBC RBC Hgb Hct MCV MCH MCHC RDW Plt Count MPV Neut % (Auto) Lymph % (Auto) [place] % (Auto) Eos % (Auto) Baso % (Auto) Neut # Lymph # [place] # Eos # Baso # PT INR APTT pCO2 46 H pO2 72 L HCO3 25.1 ABG pH 7.36 ABG Total CO2 27.4 ABG O2 Saturation 96.8 ABG O2 Content 12.7 L ABG Base Excess 0.3 ABG Hemoglobin 9.5 L ABG Carboxyhemoglobin 1.3 POC ABG HHb (Measured) 3.1 ABG Methemoglobin 1.3 ABG O2 Capacity 13.1 L Tony Test Yes A-a O2 Difference 298.0 Hgb O2 Saturation 94.4 L Vent Mode Bipap Mechanical Rate 16 FiO2 60.0 Inspiratory BiPAP 12 Expiratory BiPAP 6 Blood Gas Notified Time 503 Sodium Potassium Chloride Carbon Dioxide Anion Gap BUN Creatinine Est GFR ( Amer) Est GFR (Non-Af Amer) POC Glucose (mg/dL) 266 H Random Glucose Serum Osmolality Lactic Acid 4.4 H* Calcium Total Bilirubin AST ALT Alkaline Phosphatase Total Protein Albumin Globulin Albumin/Globulin Ratio Free T4 TSH 3rd Generation Urine Color Urine Clarity Urine pH Ur Specific [place] Urine Protein Urine Glucose (UA) Urine Ketones Urine Blood Urine Nitrate Urine Bilirubin Urine Urobilinogen Ur Leukocyte Esterase Urine RBC (Auto) Urine Microscopic WBC Ur Squamous Epith Cells Urine Bacteria Hyaline Casts Influenza Typ A,B (EIA) 10/22/16 10/22/16 06:00 12:13 WBC 4.9 D RBC 3.61 L Hgb 9.7 L D Hct 30.8 L MCV 85.3 D MCH 27.0 MCHC 31.6 L RDW 16.1 H Plt Count 168 MPV 9.1 Neut % (Auto) 67.2 Lymph % (Auto) 25.3 [place] % (Auto) 7.0 Eos % (Auto) 0.1 Baso % (Auto) 0.4 Neut # 3.3 Lymph # 1.2 [place] # 0.3 Eos # 0.0 Baso # 0.0 PT 13.6 H INR 1.31 H APTT 33.1 H pCO2 pO2 HCO3 ABG pH ABG Total CO2 ABG O2 Saturation ABG O2 Content ABG Base Excess ABG Hemoglobin ABG Carboxyhemoglobin POC ABG HHb (Measured) ABG Methemoglobin ABG O2 Capacity Tony Test A-a O2 Difference Hgb O2 Saturation Vent Mode Mechanical Rate FiO2 Inspiratory BiPAP Expiratory BiPAP Blood Gas Notified Time Sodium 134 Potassium 4.8 Chloride 94 L Carbon Dioxide 26 Anion Gap 19 BUN 46 H Creatinine 3.9 H Est GFR ( Amer) 13 Est GFR (Non-Af Amer) 11 POC Glucose (mg/dL) 316 H Random Glucose 345 H Serum Osmolality 310 H Lactic Acid Calcium 8.5 Total Bilirubin 0.6 AST 26 ALT 28 Alkaline Phosphatase 62 Total Protein 7.1 Albumin 3.7 Globulin 3.4 Albumin/Globulin Ratio 1.1 Free T4 TSH 3rd Generation Urine Color Urine Clarity Urine pH Ur Specific [place] Urine Protein Urine Glucose (UA) Urine Ketones Urine Blood Urine Nitrate Urine Bilirubin Urine Urobilinogen Ur Leukocyte Esterase Urine RBC (Auto) Urine Microscopic WBC Ur Squamous Epith Cells Urine Bacteria Hyaline Casts Influenza Typ A,B (EIA)
--- NOTE | 2016-10-22 16:14 | CP.PCM.HP ---
History of Present Illness - History of Present Illness History of Present Illness: CC: SOB. 86 y/o F, was brought to ER [facility] due to progressive SOB, onset one week [employer] with no relief. Pt was brought to hospital via EMS for been in respiratory distress on DOA after symptoms begins 1 week [employer] but progressively increased. SOB associated to chest congestion, wheezing, intermittent and productive cough, non bloody, fever, Hypertensive Worsening symptoms: Abdominal pain, more prominent in the lower epigastric area and b/l LQquadrants, pain described as cramping, severe intensity 8:10. In ER Pt TMAx: 101.5, HR:112 increasing to 129, BP 132/82, after drooped to 102/45, pCO2 26, WBC: 12.7 BUN: 35, Creatinine 2.5, BS: 386. Pt was placed on BIPAP vent support FIO2 60% and was transferred to ICU unit. Pt denied: Chills, n/v/d, dizziness, back pain, Epistaxis, hematemesis, melena , headache, CP, sick contact, recent travel. PMH: Bronchial Asthma with constant episodes since to 9 yrs old, after that, has been asymptomatic for many years until he came to [facility] and years latter he begins with recurrent episodes. last time admitted with for exacerbation of asthma was 08/14/16 at [facility]. Also Hx of HTN, IDDM, cardiomegaly, High- cholesterol, O/A R-L knee, R-L foot. CT Abd/Pelv showed: Suspected b/l LL PNA, R>L, no abdominal or pelvis abnormality, Diverticulosis. CXR: Pulmonary congestion, B/L infiltrated RLL > LLL and b/L effusions, no Pneumothorax. U-S Lower extremities=Negative for DVT. Present on Admission - Present on Admission Any Indicators Present on Admission: Yes History of Uncontrolled Diabetes: Yes Decubitus Ulcer Present: Yes (Healed scaral ulcer.) Review of Systems - Constitutional Constitutional: Fever, Weakness (lower extremities) - EENT Eyes: Requires Corrective Lenses Ears: Other (negative) Nose/Mouth/Throat: Other (negative) - Cardiovascular Cardiovascular: Leg Edema, Rapid Heart Rate - Respiratory Respiratory: Cough, Dyspnea, Dyspnea on Exertion, Wheezing, Chest Congestion, Change in Mucous Color - Gastrointestinal Gastrointestinal: Abdominal Pain, Cramping - Genitourinary Genitourinary: Urinary Incontinence - Musculoskeletal Musculoskeletal: Arthralgias - Integumentary Integumentary: Dry Skin, Skin Ulcer - Neurological Neurological: Confusion - Psychiatric Psychiatric: Other (negative) - Endocrine Endocrine: Other (negative) - Hematologic/Lymphatic Hematologic: Other (negative) Past Patient History - Past Medical History & Family History Past Medical History?: Yes Past Family History: Reviewed and not pertinent Pertinent Family History: Mother: DM, Bronchial Asthma - Past Social History Smoking Status: Never Smoked Alcohol: None Drugs: Denies Home Situation {Lives}: With Family - CARDIAC Hx Cardiac Disorders: Yes Hx Congestive Heart Failure: Yes (CARDIOMEGALY) Hx Hypercholesterolemia: Yes Hx Hypertension: Yes Hx Peripheral Edema: Yes - PULMONARY Hx Respiratory Disorders: Yes Hx Asthma: Yes - NEUROLOGICAL Hx Neurological Disorder: No - HEENT Hx HEENT Problems: No - RENAL Hx Chronic Kidney Disease: No - ENDOCRINE/METABOLIC Hx Endocrine Disorders: Yes Hx Diabetes Mellitus Type 2: Yes Hx Hypothyroidism: Yes - HEMATOLOGICAL/ONCOLOGICAL Hx Human Immunodeficiency Virus (HIV): No - INTEGUMENTARY Hx Dermatological Problems: No - MUSCULOSKELETAL/RHEUMATOLOGICAL Hx Falls: Yes Hx Osteoarthritis: Yes - GASTROINTESTINAL Hx Gastrointestinal Disorders: No Hx Colitis: Yes Hx Diarrhea: Yes - GENITOURINARY/GYNECOLOGICAL Hx Genitourinary Disorders: No - PSYCHIATRIC Hx Anxiety: Yes Hx Substance Use: No - SURGICAL HISTORY Hx Appendectomy: Yes - ANESTHESIA Hx Anesthesia: Yes Hx Anesthesia Reactions: No Meds Allergies/Adverse Reactions: Allergies Allergy/AdvReac Type Severity Reaction Status Date / Time Penicillins Allergy RASH Verified 08/16/16 17:47 Physical Exam - Constitutional Appears: Confused, Chronically Ill - Head Exam Head Exam: NORMAL INSPECTION - Eye Exam Eye Exam: PERRL - ENT Exam ENT Exam: Normal Oropharynx Additional comments: On BIPAP - Neck Exam Neck exam: Positive for: Normal Inspection - Respiratory Exam Respiratory Exam: Decreased Breath Sounds, Rhonchi (scattered), Wheezes Additional comments: few crackles at bases - Cardiovascular Exam Cardiovascular Exam: Tachycardia - GI/Abdominal Exam GI & Abdominal Exam: Distended (slightly), Soft. absent: Guarding, Rebound - Extremities Exam Additional comments: Trace edema. - Back Exam Back exam: NORMAL INSPECTION Additional comments: Healed sacral decubiti, R buttock open ulcer. - Neurological Exam Neurological exam: Alert Additional comments: No gross focal motor deficit. - Psychiatric Exam Psychiatric exam: Anxious - Skin Skin Exam: Normal Color, Warm Results - Vital Signs Recent Vital Signs: Last Vital Signs Temp 99.8 F H 10/22/16 12:00 Pulse 124 H 10/22/16 15:21 Resp 23 10/22/16 12:00 BP 121/60 10/22/16 12:14 Pulse Ox 95 10/22/16 12:00 reviewed Karl - Labs Result Diagrams: 10/29/16 06:02 10/29/16 06:02 Labs: Laboratory Results - last 24 hr 10/21/16 10/21/16 10/21/16 19:00 19:54 20:50 WBC RBC Hgb Hct MCV MCH MCHC RDW Plt Count MPV Neut % (Auto) Lymph % (Auto) [place] % (Auto) Eos % (Auto) Baso % (Auto) Neut # Lymph # [place] # Eos # Baso # PT INR APTT pCO2 pO2 HCO3 ABG pH ABG Total CO2 ABG O2 Saturation ABG O2 Content ABG Base Excess ABG Hemoglobin ABG Carboxyhemoglobin POC ABG HHb (Measured) ABG Methemoglobin ABG O2 Capacity Tony Test A-a O2 Difference Hgb O2 Saturation Vent Mode Mechanical Rate FiO2 Inspiratory BiPAP Expiratory BiPAP Blood Gas Notified Time Sodium Potassium Chloride Carbon Dioxide Anion Gap BUN Creatinine Est GFR ( Amer) Est GFR (Non-Af Amer) POC Glucose (mg/dL) 292 H Random Glucose Serum Osmolality 313 H Lactic Acid 2.6 H Calcium Total Bilirubin AST ALT Alkaline Phosphatase Total Creatine Kinase Total Protein Albumin Globulin Albumin/Globulin Ratio Free T4 2.27 H TSH 3rd Generation 2.16 Urine Color Urine Clarity Urine pH Ur Specific [place] Urine Protein Urine Glucose (UA) Urine Ketones Urine Blood Urine Nitrate Urine Bilirubin Urine Urobilinogen Ur Leukocyte Esterase Urine RBC (Auto) Urine Microscopic WBC Ur Squamous Epith Cells Urine Bacteria Hyaline Casts Influenza Typ A,B (EIA) 10/21/16 10/21/16 10/22/16 22:10 22:19 02:49 WBC RBC Hgb Hct MCV MCH MCHC RDW Plt Count MPV Neut % (Auto) Lymph % (Auto) [place] % (Auto) Eos % (Auto) Baso % (Auto) Neut # Lymph # [place] # Eos # Baso # PT INR APTT pCO2 42 pO2 61 L HCO3 25.6 ABG pH 7.40 ABG Total CO2 27.3 ABG O2 Saturation 94.9 L ABG O2 Content 12.6 L ABG Base Excess 1.0 ABG Hemoglobin 9.7 L ABG Carboxyhemoglobin 1.6 H POC ABG HHb (Measured) 5.0 ABG Methemoglobin 1.0 ABG O2 Capacity 13.3 L Tony Test Yes A-a O2 Difference 172.0 Hgb O2 Saturation 92.4 L Vent Mode Bipap Mechanical Rate 16 FiO2 40.0 Inspiratory BiPAP 12 Expiratory BiPAP 6 Blood Gas Notified Time 252 Sodium Potassium Chloride Carbon Dioxide Anion Gap BUN Creatinine Est GFR ( Amer) Est GFR (Non-Af Amer) POC Glucose (mg/dL) Random Glucose Serum Osmolality Lactic Acid Calcium Total Bilirubin AST ALT Alkaline Phosphatase Total Creatine Kinase Total Protein Albumin Globulin Albumin/Globulin Ratio Free T4 TSH 3rd Generation Urine Color [place] Urine Clarity Cloudy Urine pH 5.0 Ur Specific [place] 1.021 Urine Protein 30 Urine Glucose (UA) 50 Urine Ketones Negative Urine Blood Negative Urine Nitrate Negative Urine Bilirubin Negative Urine Urobilinogen 0.2-1.0 Ur Leukocyte Esterase Neg Urine RBC (Auto) 2 Urine Microscopic WBC 1 Ur Squamous Epith Cells < 1 Urine Bacteria Rare Hyaline Casts 3-5 H Influenza Typ A,B (EIA) Negative for flu a/b 10/22/16 10/22/16 10/22/16 03:18 04:48 05:14 WBC RBC Hgb Hct MCV MCH MCHC RDW Plt Count MPV Neut % (Auto) Lymph % (Auto) [place] % (Auto) Eos % (Auto) Baso % (Auto) Neut # Lymph # [place] # Eos # Baso # PT INR APTT pCO2 46 H pO2 72 L HCO3 25.1 ABG pH 7.36 ABG Total CO2 27.4 ABG O2 Saturation 96.8 ABG O2 Content 12.7 L ABG Base Excess 0.3 ABG Hemoglobin 9.5 L ABG Carboxyhemoglobin 1.3 POC ABG HHb (Measured) 3.1 ABG Methemoglobin 1.3 ABG O2 Capacity 13.1 L Tony Test Yes A-a O2 Difference 298.0 Hgb O2 Saturation 94.4 L Vent Mode Bipap Mechanical Rate 16 FiO2 60.0 Inspiratory BiPAP 12 Expiratory BiPAP 6 Blood Gas Notified Time 503 Sodium Potassium Chloride Carbon Dioxide Anion Gap BUN Creatinine Est GFR ( Amer) Est GFR (Non-Af Amer) POC Glucose (mg/dL) 266 H Random Glucose Serum Osmolality Lactic Acid 4.4 H* Calcium Total Bilirubin AST ALT Alkaline Phosphatase Total Creatine Kinase Total Protein Albumin Globulin Albumin/Globulin Ratio Free T4 TSH 3rd Generation Urine Color Urine Clarity Urine pH Ur Specific [place] Urine Protein Urine Glucose (UA) Urine Ketones Urine Blood Urine Nitrate Urine Bilirubin Urine Urobilinogen Ur Leukocyte Esterase Urine RBC (Auto) Urine Microscopic WBC Ur Squamous Epith Cells Urine Bacteria Hyaline Casts Influenza Typ A,B (EIA) 10/22/16 10/22/16 10/22/16 06:00 12:13 15:49 WBC 4.9 D RBC 3.61 L Hgb 9.7 L D Hct 30.8 L MCV 85.3 D MCH 27.0 MCHC 31.6 L RDW 16.1 H Plt Count 168 MPV 9.1 Neut % (Auto) 67.2 Lymph % (Auto) 25.3 [place] % (Auto) 7.0 Eos % (Auto) 0.1 Baso % (Auto) 0.4 Neut # 3.3 Lymph # 1.2 [place] # 0.3 Eos # 0.0 Baso # 0.0 PT 13.6 H INR 1.31 H APTT 33.1 H pCO2 pO2 HCO3 ABG pH ABG Total CO2 ABG O2 Saturation ABG O2 Content ABG Base Excess ABG Hemoglobin ABG Carboxyhemoglobin POC ABG HHb (Measured) ABG Methemoglobin ABG O2 Capacity Tony Test A-a O2 Difference Hgb O2 Saturation Vent Mode Mechanical Rate FiO2 Inspiratory BiPAP Expiratory BiPAP Blood Gas Notified Time Sodium 134 Potassium 4.8 Chloride 94 L Carbon Dioxide 26 Anion Gap 19 BUN 46 H Creatinine 3.9 H Est GFR ( Amer) 13 Est GFR (Non-Af Amer) 11 POC Glucose (mg/dL) 316 H Random Glucose 345 H Serum Osmolality 310 H Lactic Acid Calcium 8.5 Total Bilirubin 0.6 AST 26 ALT 28 Alkaline Phosphatase 62 Total Creatine Kinase 102 Total Protein 7.1 Albumin 3.7 Globulin 3.4 Albumin/Globulin Ratio 1.1 Free T4 TSH 3rd Generation Urine Color Urine Clarity Urine pH Ur Specific [place] Urine Protein Urine Glucose (UA) Urine Ketones Urine Blood Urine Nitrate Urine Bilirubin Urine Urobilinogen Ur Leukocyte Esterase Urine RBC (Auto) Urine Microscopic WBC Ur Squamous Epith Cells Urine Bacteria Hyaline Casts Influenza Typ A,B (EIA) reviewed J.PSheila - EKG Data EKG comments: reviewed J.P. - Imaging and Cardiology Chest x-ray Status: Report reviewed by me (Karl) CT scan - abdomen Status: Report reviewed by me (Karl) CT scan - pelvis Status: Report reviewed by me (Karl) Venous US Status: Report reviewed by me (Karl) Assessment & Plan (1) Acute respiratory failure Status: Acute Priority: High (2) Pneumonia Status: Acute Priority: High (3) Septic shock Status: Acute Priority: High (4) Abdominal pain Status: Acute Priority: High (5) Uncontrolled diabetes mellitus Status: Acute (6) Acute renal failure (ARF) Status: Acute - Assessment and Plan (Free Text) Plan: F/U Blood C-S, U C-S, Naris C-S, Continue Cipro, Aztreonan, Insulin R, Heparine , Morphine and rest of Tx. Surgery consult appreciated, F/U Renal consult. ICU TIME: 65 MIN. - Date & Time Date: 10/22/16 Time: 14:00
[2016-10-22] MEDS: Sodium Chloride 0.9% 1,000 ML IV SCH (16:48)
--- NOTE | 2016-10-22 19:52 | CP.PCM.CON ---
History of Present Illness - History of Present Illness History of Present Illness: GENERAL SURGERY CONSULT NOTE FOR DR. MANDUJANO 86yo F with PMHx of asthma, DM, CHF, HTN, colitis presented to the ED yesterday with SOB and productive cough. She was admitted for VERITO, pneumonia and severe sepsis. She is currently in the ICU on BIPAP. Surgery was consulted for central line placement since patient was started on a Dopamine drip through her peripheral line. The patient's was contacted and verbal consent was obtained over the telephone. A right Internal Jugular line was placed and CXR confirmed placement as well as absence of pneumothorax. Throughout the procedure, patient was very restless requiring Ativan and Versed. Review of Systems - Review of Systems All systems: reviewed and no additional remarkable complaints except (as per HPI ) Past Patient History - Past Medical History & Family History Past Medical History?: Yes - Past Social History Smoking Status: Never Smoked - CARDIAC Hx Cardiac Disorders: Yes Hx Congestive Heart Failure: Yes (CARDIOMEGALY) Hx Hypercholesterolemia: Yes Hx Hypertension: Yes Hx Peripheral Edema: Yes - PULMONARY Hx Respiratory Disorders: Yes Hx Asthma: Yes - NEUROLOGICAL Hx Neurological Disorder: No - HEENT Hx HEENT Problems: No - RENAL Hx Chronic Kidney Disease: No - ENDOCRINE/METABOLIC Hx Endocrine Disorders: Yes Hx Diabetes Mellitus Type 2: Yes Hx Hypothyroidism: Yes - HEMATOLOGICAL/ONCOLOGICAL Hx Human Immunodeficiency Virus (HIV): No - INTEGUMENTARY Hx Dermatological Problems: No - MUSCULOSKELETAL/RHEUMATOLOGICAL Hx Falls: Yes Hx Osteoarthritis: Yes - GASTROINTESTINAL Hx Gastrointestinal Disorders: No Hx Colitis: Yes Hx Diarrhea: Yes - GENITOURINARY/GYNECOLOGICAL Hx Genitourinary Disorders: No - PSYCHIATRIC Hx Anxiety: Yes Hx Substance Use: No - SURGICAL HISTORY Hx Appendectomy: Yes - ANESTHESIA Hx Anesthesia: Yes Hx Anesthesia Reactions: No Meds Allergies/Adverse Reactions: Allergies Allergy/AdvReac Type Severity Reaction Status Date / Time Penicillins Allergy RASH Verified 08/16/16 17:47 - Medications Medications: Current Medications Acetaminophen (Tylenol 650 Mg Supp) 650 mg [place] Q6 PRN PRN Reason: Fever >100.4 F Last Admin: 10/22/16 05:00 Dose: 650 mg Albuterol/Ipratropium (Duoneb 3 Mg/0.5 Mg (3 Ml) Ud) 3 ml INH RQID [facility] Last Admin: 10/22/16 19:44 Dose: 3 ml Furosemide (Lasix) 40 mg IV DAILY [facility] Last Admin: 10/22/16 12:14 Dose: 40 mg Heparin Sodium (Porcine) (Heparin) 5,000 units SC Q12 [facility] PRN Reason: Protocol Last Admin: 10/22/16 08:31 Dose: 5,000 units Aztreonam 1 gm/ Sodium (Chloride) 100 mls @ 100 mls/hr IVPB Q12 [facility] Last Admin: 10/22/16 13:10 Dose: 100 mls/hr Ciprofloxacin (Cipro 400mg/200ml Dsw) 200 mls @ 200 mls/hr IVPB DAILY [facility] Last Admin: 10/22/16 13:09 Dose: 200 mls/hr Dopamine HCl/Dextrose (Dopamine 400mg/250ml D5w) 250 mls @ 13.608 mls/hr IV .[id number]; 5 MCG/KG/MIN PRN Reason: Protocol Stop: 10/23/16 01:05 Last Admin: 10/22/16 06:49 Dose: 13.608 mls/hr Norepinephrine Bitartrate 4 mg (/ Dextrose) 254 mls @ 9.52 mls/hr IV .Q24H [facility]ERA ; 2.5 MCG/MIN PRN Reason: Protocol Last Admin: 10/22/16 13:08 Dose: 9.52 mls/hr Sodium Chloride (Sodium Chloride 0.9%) 1,000 mls @ 60 mls/hr IV .[id number] [facility] Stop: 10/24/16 16:01 Last Admin: 10/22/16 16:48 Dose: 60 mls/hr Insulin Human Regular (Humulin R) 0 units SC ACCU-CHECK [facility] PRN Reason: Protocol Last Admin: 10/22/16 17:00 Dose: Not Given Morphine Sulfate (Morphine) 1 mg IVP Q6 PRN PRN Reason: Pain, severe (8-10) Last Admin: 10/21/16 21:21 Dose: 1 mg Pantoprazole Sodium (Protonix Inj) 40 mg IVP DAILY [facility] Last Admin: 10/22/16 08:31 Dose: 40 mg Physical Exam - Constitutional Appears: Agitated, Chronically Ill - Head Exam Head Exam: ATRAUMATIC, NORMAL INSPECTION - Eye Exam Eye Exam: EOMI, Normal appearance - Respiratory Exam Respiratory Exam: Wheezes, NORMAL BREATHING PATTERN (on BIPAP) - Cardiovascular Exam Cardiovascular Exam: Tachycardia - GI/Abdominal Exam GI & Abdominal Exam: Soft. absent: Tenderness Results - Vital Signs Recent Vital Signs: Last Vital Signs Temp 101.3 F H 10/22/16 16:00 Pulse 111 H 10/22/16 19:44 Resp 26 H 10/22/16 16:00 BP 101/48 L 10/22/16 18:00 Pulse Ox 23 L 10/22/16 18:00 - Labs Result Diagrams: 10/22/16 06:00 10/22/16 06:00 Labs: Laboratory Results - last 24 hr 10/21/16 10/21/16 10/21/16 19:00 19:54 20:50 WBC RBC Hgb Hct MCV MCH MCHC RDW Plt Count MPV Neut % (Auto) Lymph % (Auto) [place] % (Auto) Eos % (Auto) Baso % (Auto) Neut # Lymph # [place] # Eos # Baso # PT INR APTT pCO2 pO2 HCO3 ABG pH ABG Total CO2 ABG O2 Saturation ABG O2 Content ABG Base Excess ABG Hemoglobin ABG Carboxyhemoglobin POC ABG HHb (Measured) ABG Methemoglobin ABG O2 Capacity Tony Test A-a O2 Difference Hgb O2 Saturation Vent Mode Mechanical Rate FiO2 Inspiratory BiPAP Expiratory BiPAP Blood Gas Notified Time Sodium Potassium Chloride Carbon Dioxide Anion Gap BUN Creatinine Est GFR ( Amer) Est GFR (Non-Af Amer) POC Glucose (mg/dL) 292 H Random Glucose Serum Osmolality 313 H Lactic Acid 2.6 H Calcium Total Bilirubin AST ALT Alkaline Phosphatase Total Creatine Kinase Total Protein Albumin Globulin Albumin/Globulin Ratio Free T4 2.27 H TSH 3rd Generation 2.16 Urine Color Urine Clarity Urine pH Ur Specific [place] Urine Protein Urine Glucose (UA) Urine Ketones Urine Blood Urine Nitrate Urine Bilirubin Urine Urobilinogen Ur Leukocyte Esterase Urine RBC (Auto) Urine Microscopic WBC Ur Squamous Epith Cells Urine Bacteria Hyaline Casts Influenza Typ A,B (EIA) 10/21/16 10/21/16 10/22/16 22:10 22:19 02:49 WBC RBC Hgb Hct MCV MCH MCHC RDW Plt Count MPV Neut % (Auto) Lymph % (Auto) [place] % (Auto) Eos % (Auto) Baso % (Auto) Neut # Lymph # [place] # Eos # Baso # PT INR APTT pCO2 42 pO2 61 L HCO3 25.6 ABG pH 7.40 ABG Total CO2 27.3 ABG O2 Saturation 94.9 L ABG O2 Content 12.6 L ABG Base Excess 1.0 ABG Hemoglobin 9.7 L ABG Carboxyhemoglobin 1.6 H POC ABG HHb (Measured) 5.0 ABG Methemoglobin 1.0 ABG O2 Capacity 13.3 L Tony Test Yes A-a O2 Difference 172.0 Hgb O2 Saturation 92.4 L Vent Mode Bipap Mechanical Rate 16 FiO2 40.0 Inspiratory BiPAP 12 Expiratory BiPAP 6 Blood Gas Notified Time 252 Sodium Potassium Chloride Carbon Dioxide Anion Gap BUN Creatinine Est GFR ( Amer) Est GFR (Non-Af Amer) POC Glucose (mg/dL) Random Glucose Serum Osmolality Lactic Acid Calcium Total Bilirubin AST ALT Alkaline Phosphatase Total Creatine Kinase Total Protein Albumin Globulin Albumin/Globulin Ratio Free T4 TSH 3rd Generation Urine Color [place] Urine Clarity Cloudy Urine pH 5.0 Ur Specific [place] 1.021 Urine Protein 30 Urine Glucose (UA) 50 Urine Ketones Negative Urine Blood Negative Urine Nitrate Negative Urine Bilirubin Negative Urine Urobilinogen 0.2-1.0 Ur Leukocyte Esterase Neg Urine RBC (Auto) 2 Urine Microscopic WBC 1 Ur Squamous Epith Cells < 1 Urine Bacteria Rare Hyaline Casts 3-5 H Influenza Typ A,B (EIA) Negative for flu a/b 10/22/16 10/22/16 10/22/16 03:18 04:48 05:14 WBC RBC Hgb Hct MCV MCH MCHC RDW Plt Count MPV Neut % (Auto) Lymph % (Auto) [place] % (Auto) Eos % (Auto) Baso % (Auto) Neut # Lymph # [place] # Eos # Baso # PT INR APTT pCO2 46 H pO2 72 L HCO3 25.1 ABG pH 7.36 ABG Total CO2 27.4 ABG O2 Saturation 96.8 ABG O2 Content 12.7 L ABG Base Excess 0.3 ABG Hemoglobin 9.5 L ABG Carboxyhemoglobin 1.3 POC ABG HHb (Measured) 3.1 ABG Methemoglobin 1.3 ABG O2 Capacity 13.1 L Tony Test Yes A-a O2 Difference 298.0 Hgb O2 Saturation 94.4 L Vent Mode Bipap Mechanical Rate 16 FiO2 60.0 Inspiratory BiPAP 12 Expiratory BiPAP 6 Blood Gas Notified Time 503 Sodium Potassium Chloride Carbon Dioxide Anion Gap BUN Creatinine Est GFR ( Amer) Est GFR (Non-Af Amer) POC Glucose (mg/dL) 266 H Random Glucose Serum Osmolality Lactic Acid 4.4 H* Calcium Total Bilirubin AST ALT Alkaline Phosphatase Total Creatine Kinase Total Protein Albumin Globulin Albumin/Globulin Ratio Free T4 TSH 3rd Generation Urine Color Urine Clarity Urine pH Ur Specific [place] Urine Protein Urine Glucose (UA) Urine Ketones Urine Blood Urine Nitrate Urine Bilirubin Urine Urobilinogen Ur Leukocyte Esterase Urine RBC (Auto) Urine Microscopic WBC Ur Squamous Epith Cells Urine Bacteria Hyaline Casts Influenza Typ A,B (EIA) 10/22/16 10/22/16 10/22/16 06:00 12:13 15:49 WBC 4.9 D RBC 3.61 L Hgb 9.7 L D Hct 30.8 L MCV 85.3 D MCH 27.0 MCHC 31.6 L RDW 16.1 H Plt Count 168 MPV 9.1 Neut % (Auto) 67.2 Lymph % (Auto) 25.3 [place] % (Auto) 7.0 Eos % (Auto) 0.1 Baso % (Auto) 0.4 Neut # 3.3 Lymph # 1.2 [place] # 0.3 Eos # 0.0 Baso # 0.0 PT 13.6 H INR 1.31 H APTT 33.1 H pCO2 pO2 HCO3 ABG pH ABG Total CO2 ABG O2 Saturation ABG O2 Content ABG Base Excess ABG Hemoglobin ABG Carboxyhemoglobin POC ABG HHb (Measured) ABG Methemoglobin ABG O2 Capacity Tony Test A-a O2 Difference Hgb O2 Saturation Vent Mode Mechanical Rate FiO2 Inspiratory BiPAP Expiratory BiPAP Blood Gas Notified Time Sodium 134 Potassium 4.8 Chloride 94 L Carbon Dioxide 26 Anion Gap 19 BUN 46 H Creatinine 3.9 H Est GFR ( Amer) 13 Est GFR (Non-Af Amer) 11 POC Glucose (mg/dL) 316 H Random Glucose 345 H Serum Osmolality 310 H Lactic Acid Calcium 8.5 Total Bilirubin 0.6 AST 26 ALT 28 Alkaline Phosphatase 62 Total Creatine Kinase 102 Total Protein 7.1 Albumin 3.7 Globulin 3.4 Albumin/Globulin Ratio 1.1 Free T4 TSH 3rd Generation Urine Color Urine Clarity Urine pH Ur Specific [place] Urine Protein Urine Glucose (UA) Urine Ketones Urine Blood Urine Nitrate Urine Bilirubin Urine Urobilinogen Ur Leukocyte Esterase Urine RBC (Auto) Urine Microscopic WBC Ur Squamous Epith Cells Urine Bacteria Hyaline Casts Influenza Typ A,B (EIA) 10/22/16 17:05 WBC RBC Hgb Hct MCV MCH MCHC RDW Plt Count MPV Neut % (Auto) Lymph % (Auto) [place] % (Auto) Eos % (Auto) Baso % (Auto) Neut # Lymph # [place] # Eos # Baso # PT INR APTT pCO2 pO2 HCO3 ABG pH ABG Total CO2 ABG O2 Saturation ABG O2 Content ABG Base Excess ABG Hemoglobin ABG Carboxyhemoglobin POC ABG HHb (Measured) ABG Methemoglobin ABG O2 Capacity Tony Test A-a O2 Difference Hgb O2 Saturation Vent Mode Mechanical Rate FiO2 Inspiratory BiPAP Expiratory BiPAP Blood Gas Notified Time Sodium Potassium Chloride Carbon Dioxide Anion Gap BUN Creatinine Est GFR ( Amer) Est GFR (Non-Af Amer) POC Glucose (mg/dL) 377 H Random Glucose Serum Osmolality Lactic Acid Calcium Total Bilirubin AST ALT Alkaline Phosphatase Total Creatine Kinase Total Protein Albumin Globulin Albumin/Globulin Ratio Free T4 TSH 3rd Generation Urine Color Urine Clarity Urine pH Ur Specific [place] Urine Protein Urine Glucose (UA) Urine Ketones Urine Blood Urine Nitrate Urine Bilirubin Urine Urobilinogen Ur Leukocyte Esterase Urine RBC (Auto) Urine Microscopic WBC Ur Squamous Epith Cells Urine Bacteria Hyaline Casts Influenza Typ A,B (EIA) Assessment & Plan - Assessment and Plan (Free Text) Assessment: 86yo F requiring dopamine drip - Right IJ central line placed - CXR confirmed placement. No pneumothorax - Discussed plan with Dr. Manohar Aggarwal PGY-2 Central Line Placement - Central Line Placement Central Line Placement: Right: Internal Jugular The Area Was Thoroughly Prepared With: Chlorhexidine Area Was Locally Anesthetized With: Lidocaine 1% Procedure: Triple Lumen, Placed Using Standard Seldinger Technique, Catheter Was Sewn Into Place, Sterile Dressing Placed Over Line, Procedure Tolerated Well , CXR Ordered To Confirm Placement
--- NOTE | 2016-10-22 20:01 | PCM.PROC ---
Procedures Attestation:: I certify that I have explained the specified Operation(s) or Procedure(s), risks, benefits and reasonable alternatives to the Patient and/or other person responsible. The opportunity was given to ask questions and all questions answered - Central Line Placement Right Internal Jugular Triple Lumen Catheter Aseptic technique was employed throughout the procedure: Hand Hygiene done prior to procedure, Full sterile barriers (mask, hair cover, sterile gown, sterile gloves), Full body sterile drape, Chloraprep Antiseptic: 30 second prep for IJ or SC sites CVP Time Out Performed: Yes Pt. Placed on Pulse Ox Monitor: Yes Central Line Prep: Chlorhexidine-Alcohol Combination Local Anesthesia Used: Lidocaine 1% Ultrasound Used for Placement: Yes Central Line Lumen Inserted: triple Post Procedure: Sutured in Place, Good Blood Return, All Ports Aspirated, Flushed, Capped, Sterile Dressing Applied Secured by: Suture Post procedure dressing: Clear vapor permeable, Chlorhexidine disc (Biopatch) Post Procedure X-Ray: Yes Patient Tolerated Procedure: Well, No Complications Immediate Complications: None
[2016-10-23] MEDS ORDERED: Lidocaine 2 Grams in D5W 500 ML IV ONE (04:45)
[2016-10-23] MEDS ORDERED: Lidocaine 2 Grams in D5W 500 ML IV SCH (05:00)
[2016-10-23] MEDS ORDERED: Amiodarone 150mg/3 ml vial ONE (05:38)
[2016-10-23] MEDS: Amiodarone 900 MG in Dextrose 5% In Water 500 ML IVPB SCH ×2 (06:11→12:10)
[2016-10-23] MEDS ORDERED: Digoxin 500 mcg/2ml (0.5 mg/2ml) Inj IVP STA ×2 (06:14→20:51)
--- NOTE | 2016-10-23 06:30 | CP.PCM.PN ---
Subjective - Date & Time of Evaluation Date of Evaluation: 10/23/16 Time of Evaluation: 06:30 - Subjective Subjective: Called at 04:45 to evaluate Patient with HR of 214 Patient on BIPAP on 60% Oxygen, groaning and restless in bed BP 114/43mmHG with HR 195/min SpO2 94% Resp: Inspiratory and expiratory crackles CVS: Tachycardic with S1 s2 irregular Abdomen: Obese, soft, Decreased bowel sounds Ext: No edema Neuro: Awake, moving all extremities, no facial droop, No focal neurological deficit EKG: A Fib with rapid ventricular response 195/min During this evaluation the patient [id number] runs of V Tach lasting less than 30seconds each Assessment and Plan #. V Tach - lidocaine 100mg given IV followed by Lidocaine drip at 1mg/min The V Tach ceased with the Lidocaine #. A Fib with RVR; -Cardizem bolus of 15mg IV slowed the rate to 150-170/min - Cardizem iv Drip was started at 5mg/hr to titrate up to HR<100 at 12mg/hr the HR maintained 160-200/min - Decision was made to Start Amiodarone and stop Cardizem - Amiodarone was started 150mg IV bolus in 10mins , followed by 1mg/min for 6hrs then0.5mg /min for 18hrs Dr Gil was made aware Dr Lundberg veterans' coordinator was consulted. - Patient continued with rapid A fib but before Digoxin was given she converted to sinus Rhythm at 115/min Total Critical care time 116mins Objective - Vital Signs/Intake and Output Vital Signs (last 24 hours): Temp Pulse Resp BP Pulse Ox 100.5 F H 175 H 21 117/65 100 10/23/16 04:00 10/23/16 06:11 10/23/16 04:00 10/23/16 06:11 10/23/16 04:00 Intake and Output: 10/22/16 10/23/16 18:59 07:59 Intake Total 724 Output Total 600 55 Balance -600 669 - Medications Medications: Current Medications Acetaminophen (Tylenol 650 Mg Supp) 650 mg [place] Q6 PRN PRN Reason: Fever >100.4 F Last Admin: 10/23/16 04:33 Dose: 650 mg Albuterol/Ipratropium (Duoneb 3 Mg/0.5 Mg (3 Ml) Ud) 3 ml INH RQID [facility] Last Admin: 10/22/16 19:44 Dose: 3 ml Heparin Sodium (Porcine) (Heparin) 5,000 units SC Q12 [facility] PRN Reason: Protocol Last Admin: 10/22/16 21:11 Dose: 5,000 units Aztreonam 1 gm/ Sodium (Chloride) 100 mls @ 100 mls/hr IVPB Q12 [facility] Last Admin: 10/22/16 21:10 Dose: 100 mls/hr Ciprofloxacin (Cipro 400mg/200ml Dsw) 200 mls @ 200 mls/hr IVPB DAILY [facility] Last Admin: 10/22/16 13:09 Dose: 200 mls/hr Norepinephrine Bitartrate 4 mg (/ Dextrose) 254 mls @ 9.52 mls/hr IV .Q24H [facility] ; 2.5 MCG/MIN PRN Reason: Protocol Last Admin: 10/23/16 06:00 Dose: 38.1 mls/hr Sodium Chloride (Sodium Chloride 0.9%) 1,000 mls @ 60 mls/hr IV .[id number] [facility] Stop: 10/24/16 16:01 Last Admin: 10/22/16 16:48 Dose: 60 mls/hr Lidocaine HCl/Dextrose (Lidocaine 2 Grams In D5w) 500 mls @ 15 mls/hr IV .Q24H [facility]ER[facility]; 1 MG/MIN PRN Reason: Protocol Last Admin: 10/23/16 05:05 Dose: 15 mls/hr Amiodarone HCl 900 mg/ (Dextrose) 518 mls @ 34.53 mls/hr IVPB .Q15H1M [facility]; 1 MG /MIN PRN Reason: Protocol Last Admin: 10/23/16 06:11 Dose: 34.53 mls/hr Insulin Human Regular (Humulin R) 0 units SC ACCU-CHECK [facility] PRN Reason: Protocol Last Admin: 10/22/16 22:31 Dose: Not Given Lorazepam (Ativan) 0.5 mg IVP Q4 PRN PRN Reason: Anxiety Last Admin: 10/23/16 00:48 Dose: 0.5 mg Morphine Sulfate (Morphine) 1 mg IVP Q3 PRN PRN Reason: Pain, severe (8-10) Last Admin: 10/23/16 05:30 Dose: 1 mg Pantoprazole Sodium (Protonix Inj) 40 mg IVP DAILY [facility] Last Admin: 10/22/16 08:31 Dose: 40 mg - Labs Labs: 10/22/16 06:00 10/22/16 06:00 PT 13.6 SECONDS (9.6-11.2) H 10/22/16 06:00 INR 1.31 (0.92-1.08) H 10/22/16 06:00 APTT 33.1 SECONDS (23.3-32.5) H 10/22/16 06:00
[2016-10-23 07:09] LABS: BASO % 0.4 % (0.0-2.0); EOS % 0.3 % (0.0-4.0); HEMATOCRIT 27.9 % (34.0-47.0); LYMPH # 1.3 K/uL (1.0-4.3); LYMPH % 13.7 % (20.0-40.0); MEAN CORPUSCULAR HEMOGLOBIN 26.9 pg (27.0-31.0); MEAN CORPUSCULAR HGB CONC 31.6 g/dL (33.0-37.0); MEAN PLATELET VOLUME 9.2 fl (7.2-11.7); MONO # 0.5 K/uL (0.0-0.8); MONO % 5.2 % (0.0-10.0); NEUT # 7.5 K/uL (1.8-7.0); NEUT % 80.4 % (50.0-75.0); RED CELL DISTRIBUTION WIDTH 16.5 % (11.5-14.5); WHITE BLOOD COUNT 9.3 K/uL (4.8-10.8)
[2016-10-23 07:12] LABS: ABG ALLEN TEST YES; ABG MECHANICAL RATE 16; ARTERIAL BLOOD GAS HCO3 24.5 mmol/L (21-28); ARTERIAL BLOOD GAS MODE BiPAP; ARTERIAL BLOOD GAS PH 7.34 (7.35-7.45); ARTERIAL BLOOD GAS PO2 89 mm/Hg (80-100)
[2016-10-23 07:17] LABS: ALB/GLOB RATIO 0.9 (1.0-2.1); BILIRUBIN,TOTAL 0.4 mg/dl (0.2-1.3); CALCIUM 7.8 mg/dL (8.4-10.2); POTASSIUM 4.3 MMOL/L (3.6-5.0); TOTAL PROTEIN 6.7 G/DL (6.3-8.2)
--- NOTE | 2016-10-23 07:36 | CP.CCUPN ---
CCU Subjective - Physician Review Events Since Last Encounter (Free Text): 10/23/16 07:31 I took a detailed sign out from night time physician Dr Santiago at the bedside. 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 Dr Santiago also discussed the management with link trainer mechanic Dr Lundberg. Pt was given Cardiziem bolus, infusion, amiodorone bolus and infusion, pt is now in SR 90/m and on amiodrone infusion and off cardizem GGT. Still on Levophed for hypotension. Has been oliguric, BMP is still pending, CBC is back and Hb has been dropping without any obvious source if bleeding. Dropped from 12.0 > 9.7 > 8.8 ( today ) no drop in platlet count. ABG showing good oxy sat on BiPAP. 10/23/16 07:36 CCU Objective - Vital Signs / Intake & Output Vital Signs (Last 4 hours): Vital Signs Temp Pulse Resp BP Pulse Ox 10/23/16 07:00 109 H 15 108/44 L 96 10/23/16 06:30 118 H 20 128/72 100 10/23/16 06:11 175 H 117/65 10/23/16 06:00 167 H 25 H 145/78 98 10/23/16 05:55 161 H 145/57 L 10/23/16 05:30 163 H 30 H 117/64 96 10/23/16 05:27 176 H 10/23/16 05:15 190 H 104/71 10/23/16 05:07 160 H 008/49 L 10/23/16 05:00 170 H 28 H 118/49 L 90 L 10/23/16 04:00 100.5 F H 104 H 21 117/43 L 100 Intake and Output (Last 8hrs): Intake & Output 10/22/16 10/23/16 10/23/16 21:59 06:59 14:59 Intake Total Output Total Balance Intake: IV Intake, Piggyback Output: Urine Urethral ([place]) - Physical Exam Narrative Physical Exam (Free Text): 10/23/16 07:38 P/E Neck: No JVD Lungs: Rt basal crackles Heart: No gallop Abdomen: soft, non-tender Ext; +1 edema - Medications Active Medications: Active Medications Generic Name Dose Route Start Last Admin Trade Name Freq PRN Reason Stop Dose Admin Acetaminophen 650 mg 10/22/16 05:22 10/23/16 04:33 Tylenol 650 Mg Supp UT 650 mg Q6 PRN Administration Fever >100.4 F Albuterol/Ipratropium 3 ml 10/21/16 20:00 10/22/16 19:44 Duoneb 3 Mg/0.5 Mg (3 Ml) Ud INH 3 ml RQID MEERA Administration Heparin Sodium (Porcine) 5,000 units 10/21/16 21:00 10/22/16 21:11 Heparin SC 5,000 units Q12 MEERA Administration Protocol Aztreonam 1 gm/ Sodium 100 mls @ 100 mls/hr 10/21/16 21:00 10/22/16 21:10 Chloride IVPB 100 mls/hr Q12 MEERA Administration Ciprofloxacin 200 mls @ 200 mls/hr 10/22/16 09:00 10/22/16 13:09 Cipro 400mg/200ml Dsw IVPB 200 mls/hr DAILY MEERA Administration Norepinephrine Bitartrate 4 mg 254 mls @ 9.52 mls/hr 10/22/16 12:00 10/23/16 06 :00 / Dextrose IV 38.1 mls/hr .Q24H MEERA Administration Protocol 2.5 MCG/MIN Sodium Chloride 1,000 mls @ 60 mls/hr 10/22/16 16:00 10/22/16 16:48 Sodium Chloride 0.9% IV 10/24/16 16:01 60 mls/hr .[id number] MEERA Administration Lidocaine HCl/Dextrose 500 mls @ 15 mls/hr 10/23/16 05:00 10/23/16 05:05 Lidocaine 2 Grams In D5w IV 15 mls/hr .Q24H MEERA Administration Protocol 1 MG/MIN Amiodarone HCl 900 mg/ 518 mls @ 34.53 mls/hr 10/23/16 05:54 10/23/16 06:11 Dextrose IVPB 34.53 mls/hr .[id number] MEERA Administration Protocol 1 MG/MIN Insulin Human Regular 0 units 10/21/16 23:00 10/22/16 22:31 Humulin R SC Not Given ACCU-CHECK MEERA Protocol Lorazepam 0.5 mg 10/22/16 22:38 10/23/16 00:48 Ativan IVP 0.5 mg Q4 PRN Administration Anxiety Morphine Sulfate 1 mg 10/22/16 22:37 10/23/16 05:30 Morphine IVP 1 mg Q3 PRN Administration Pain, severe (8-10) Pantoprazole Sodium 40 mg 10/22/16 09:00 10/22/16 08:31 Protonix Inj IVP 40 mg DAILY MEERA Administration - Patient Studies Lab Studies: Microbiology Studies 10/21/16 23:44 Blood Culture - Preliminary Blood NO GROWTH AFTER 24 HOURS Lab Studies 10/23/16 10/23/16 10/23/16 Range/Units 07:05 06:45 04:32 WBC 9.3 D (4.8-10.8) K/uL RBC 3.28 L (3.80-5.20) Mil/uL Hgb 8.8 L (12.0-16.0) g/dL Hct 27.9 L (34.0-47.0) % MCV 85.0 (81.0-99.0) fl MCH 26.9 L (27.0-31.0) pg MCHC 31.6 L (33.0-37.0) g/dL RDW 16.5 H (11.5-14.5) % Plt Count 174 (130-400) K/uL MPV 9.2 (7.2-11.7) fl Neut % (Auto) 80.4 H (50.0-75.0) % Lymph % (Auto) 13.7 L (20.0-40.0) % Wirt % (Auto) 5.2 (0.0-10.0) % Eos % (Auto) 0.3 (0.0-4.0) % Baso % (Auto) 0.4 (0.0-2.0) % Neut # 7.5 H (1.8-7.0) K/uL Lymph # 1.3 (1.0-4.3) K/uL Wirt # 0.5 (0.0-0.8) K/uL Eos # 0.0 (0.0-0.7) K/uL Baso # 0.0 (0.0-0.2) K/uL PT (9.6-11.2) SECONDS INR (0.92-1.08) APTT (23.3-32.5) SECONDS pCO2 47 H (35-45) mm/Hg pO2 89 (80-100) mm/Hg HCO3 24.5 (21-28) mmol/L ABG pH 7.34 L (7.35-7.45) ABG Total CO2 26.8 (22-28) mmol/L ABG O2 Saturation 99.0 H (95-98) % ABG Base Excess -0.6 (-2.0-3.0) mmol/L Tony Test Yes ABG Potassium 4.3 (3.6-5.2) mmol/L A-a O2 Difference 280.0 mm/Hg Sodium 132.0 135 (132-148) mmol/L Chloride 103.0 97 L (98-107) mmol/L Glucose 335 H (65-105) mg/dL Lactate 2.4 H (0.7-2.1) mmol/L Vent Mode Bipap Mechanical Rate 16 FiO2 60.0 % Inspiratory BiPAP 12 Expiratory BiPAP 6 Potassium 4.3 (3.6-5.0) MMOL/L Carbon Dioxide 26 (22-30) mmol/L Anion Gap 16 (10-20) BUN 70 H (7-17) mg/dl Creatinine 3.7 H (0.7-1.2) mg/dL Est GFR ( Amer) 14 Est GFR (Non-Af Amer) 12 POC Glucose (mg/dL) 295 H (65-110) mg/dL Random Glucose 312 H (65-105) mg/dL Serum Osmolality (272-300) mosm/kg Lactic Acid (0.7-2.1) MMOL/L Calcium 7.8 L (8.4-10.2) mg/dL Total Bilirubin 0.4 (0.2-1.3) mg/dl AST 27 (14-36) U/L ALT 32 (9-52) U/L Alkaline Phosphatase 63 (38-126) U/L Total Creatine Kinase (30-135) U/L Total Protein 6.7 (6.3-8.2) G/DL Albumin 3.2 L (3.5-5.0) g/dL Globulin 3.5 (2.2-3.9) gm/dL Albumin/Globulin Ratio 0.9 L (1.0-2.1) Arterial Blood Potassium 4.3 (3.6-5.2) mmol/L Urine Osmolality (300-1000) mosm/kg Ur Random Creatinine mg/dL Ur Random Sodium meq/L Ur Random Potassium mmol/L 10/22/16 10/22/16 10/22/16 Range/Units 22:06 21:32 17:05 WBC (4.8-10.8) K/uL RBC (3.80-5.20) Mil/uL Hgb (12.0-16.0) g/dL Hct (34.0-47.0) % MCV (81.0-99.0) fl MCH (27.0-31.0) pg MCHC (33.0-37.0) g/dL RDW (11.5-14.5) % Plt Count (130-400) K/uL MPV (7.2-11.7) fl Neut % (Auto) (50.0-75.0) % Lymph % (Auto) (20.0-40.0) % Wirt % (Auto) (0.0-10.0) % Eos % (Auto) (0.0-4.0) % Baso % (Auto) (0.0-2.0) % Neut # (1.8-7.0) K/uL Lymph # (1.0-4.3) K/uL Wirt # (0.0-0.8) K/uL Eos # (0.0-0.7) K/uL Baso # (0.0-0.2) K/uL PT (9.6-11.2) SECONDS INR (0.92-1.08) APTT (23.3-32.5) SECONDS pCO2 (35-45) mm/Hg pO2 (80-100) mm/Hg HCO3 (21-28) mmol/L ABG pH (7.35-7.45) ABG Total CO2 (22-28) mmol/L ABG O2 Saturation (95-98) % ABG Base Excess (-2.0-3.0) mmol/L Tony Test ABG Potassium (3.6-5.2) mmol/L A-a O2 Difference mm/Hg Sodium (132-148) mmol/L Chloride (98-107) mmol/L Glucose (65-105) mg/dL Lactate (0.7-2.1) mmol/L Vent Mode Mechanical Rate FiO2 % Inspiratory BiPAP Expiratory BiPAP Potassium (3.6-5.0) MMOL/L Carbon Dioxide (22-30) mmol/L Anion Gap (10-20) BUN (7-17) mg/dl Creatinine (0.7-1.2) mg/dL Est GFR ( Amer) Est GFR (Non-Af Amer) POC Glucose (mg/dL) 302 H 377 H (65-110) mg/dL Random Glucose (65-105) mg/dL Serum Osmolality (272-300) mosm/kg Lactic Acid (0.7-2.1) MMOL/L Calcium (8.4-10.2) mg/dL Total Bilirubin (0.2-1.3) mg/dl AST (14-36) U/L ALT (9-52) U/L Alkaline Phosphatase (38-126) U/L Total Creatine Kinase (30-135) U/L Total Protein (6.3-8.2) G/DL Albumin (3.5-5.0) g/dL Globulin (2.2-3.9) gm/dL Albumin/Globulin Ratio (1.0-2.1) Arterial Blood Potassium (3.6-5.2) mmol/L Urine Osmolality 328 (300-1000) mosm/kg Ur Random Creatinine 126.9 mg/dL Ur Random Sodium 38 meq/L Ur Random Potassium 83.7 mmol/L 10/22/16 10/22/16 10/22/16 Range/Units 15:49 12:13 06:00 WBC 4.9 D (4.8-10.8) K/uL RBC 3.61 L (3.80-5.20) Mil/uL Hgb 9.7 L D (12.0-16.0) g/dL Hct 30.8 L (34.0-47.0) % MCV 85.3 D (81.0-99.0) fl MCH 27.0 (27.0-31.0) pg MCHC 31.6 L (33.0-37.0) g/dL RDW 16.1 H (11.5-14.5) % Plt Count 168 (130-400) K/uL MPV 9.1 (7.2-11.7) fl Neut % (Auto) 67.2 (50.0-75.0) % Lymph % (Auto) 25.3 (20.0-40.0) % Wirt % (Auto) 7.0 (0.0-10.0) % Eos % (Auto) 0.1 (0.0-4.0) % Baso % (Auto) 0.4 (0.0-2.0) % Neut # 3.3 (1.8-7.0) K/uL Lymph # 1.2 (1.0-4.3) K/uL Wirt # 0.3 (0.0-0.8) K/uL Eos # 0.0 (0.0-0.7) K/uL Baso # 0.0 (0.0-0.2) K/uL PT 13.6 H (9.6-11.2) SECONDS INR 1.31 H (0.92-1.08) APTT 33.1 H (23.3-32.5) SECONDS pCO2 (35-45) mm/Hg pO2 (80-100) mm/Hg HCO3 (21-28) mmol/L ABG pH (7.35-7.45) ABG Total CO2 (22-28) mmol/L ABG O2 Saturation (95-98) % ABG Base Excess (-2.0-3.0) mmol/L Tony Test ABG Potassium (3.6-5.2) mmol/L A-a O2 Difference mm/Hg Sodium 134 (132-148) mmol/L Chloride 94 L (98-107) mmol/L Glucose (65-105) mg/dL Lactate (0.7-2.1) mmol/L Vent Mode Mechanical Rate FiO2 % Inspiratory BiPAP Expiratory BiPAP Potassium 4.8 (3.6-5.0) MMOL/L Carbon Dioxide 26 (22-30) mmol/L Anion Gap 19 (10-20) BUN 46 H (7-17) mg/dl Creatinine 3.9 H (0.7-1.2) mg/dL Est GFR ( Amer) 13 Est GFR (Non-Af Amer) 11 POC Glucose (mg/dL) 316 H (65-110) mg/dL Random Glucose 345 H (65-105) mg/dL Serum Osmolality 310 H (272-300) mosm/kg Lactic Acid (0.7-2.1) MMOL/L Calcium 8.5 (8.4-10.2) mg/dL Total Bilirubin 0.6 (0.2-1.3) mg/dl AST 26 (14-36) U/L ALT 28 (9-52) U/L Alkaline Phosphatase 62 (38-126) U/L Total Creatine Kinase 102 (30-135) U/L Total Protein 7.1 (6.3-8.2) G/DL Albumin 3.7 (3.5-5.0) g/dL Globulin 3.4 (2.2-3.9) gm/dL Albumin/Globulin Ratio 1.1 (1.0-2.1) Arterial Blood Potassium (3.6-5.2) mmol/L Urine Osmolality (300-1000) mosm/kg Ur Random Creatinine mg/dL Ur Random Sodium meq/L Ur Random Potassium mmol/L 10/22/16 Range/Units 03:18 WBC (4.8-10.8) K/uL RBC (3.80-5.20) Mil/uL Hgb (12.0-16.0) g/dL Hct (34.0-47.0) % MCV (81.0-99.0) fl MCH (27.0-31.0) pg MCHC (33.0-37.0) g/dL RDW (11.5-14.5) % Plt Count (130-400) K/uL MPV (7.2-11.7) fl Neut % (Auto) (50.0-75.0) % Lymph % (Auto) (20.0-40.0) % Wirt % (Auto) (0.0-10.0) % Eos % (Auto) (0.0-4.0) % Baso % (Auto) (0.0-2.0) % Neut # (1.8-7.0) K/uL Lymph # (1.0-4.3) K/uL Wirt # (0.0-0.8) K/uL Eos # (0.0-0.7) K/uL Baso # (0.0-0.2) K/uL PT (9.6-11.2) SECONDS INR (0.92-1.08) APTT (23.3-32.5) SECONDS pCO2 (35-45) mm/Hg pO2 (80-100) mm/Hg HCO3 (21-28) mmol/L ABG pH (7.35-7.45) ABG Total CO2 (22-28) mmol/L ABG O2 Saturation (95-98) % ABG Base Excess (-2.0-3.0) mmol/L Tony Test ABG Potassium (3.6-5.2) mmol/L A-a O2 Difference mm/Hg Sodium (132-148) mmol/L Chloride (98-107) mmol/L Glucose (65-105) mg/dL Lactate (0.7-2.1) mmol/L Vent Mode Mechanical Rate FiO2 % Inspiratory BiPAP Expiratory BiPAP Potassium (3.6-5.0) MMOL/L Carbon Dioxide (22-30) mmol/L Anion Gap (10-20) BUN (7-17) mg/dl Creatinine (0.7-1.2) mg/dL Est GFR ( Amer) Est GFR (Non-Af Amer) POC Glucose (mg/dL) (65-110) mg/dL Random Glucose (65-105) mg/dL Serum Osmolality (272-300) mosm/kg Lactic Acid 4.4 H* (0.7-2.1) MMOL/L Calcium (8.4-10.2) mg/dL Total Bilirubin (0.2-1.3) mg/dl AST (14-36) U/L ALT (9-52) U/L Alkaline Phosphatase (38-126) U/L Total Creatine Kinase (30-135) U/L Total Protein (6.3-8.2) G/DL Albumin (3.5-5.0) g/dL Globulin (2.2-3.9) gm/dL Albumin/Globulin Ratio (1.0-2.1) Arterial Blood Potassium (3.6-5.2) mmol/L Urine Osmolality (300-1000) mosm/kg Ur Random Creatinine mg/dL Ur Random Sodium meq/L Ur Random Potassium mmol/L Laboratory Results - last 24 hr 10/22/16 10/22/16 10/22/16 03:18 06:00 12:13 WBC 4.9 D RBC 3.61 L Hgb 9.7 L D Hct 30.8 L MCV 85.3 D MCH 27.0 MCHC 31.6 L RDW 16.1 H Plt Count 168 MPV 9.1 Neut % (Auto) 67.2 Lymph % (Auto) 25.3 Wirt % (Auto) 7.0 Eos % (Auto) 0.1 Baso % (Auto) 0.4 Neut # 3.3 Lymph # 1.2 Wirt # 0.3 Eos # 0.0 Baso # 0.0 PT 13.6 H INR 1.31 H APTT 33.1 H pCO2 pO2 HCO3 ABG pH ABG Total CO2 ABG O2 Saturation ABG Base Excess Tony Test ABG Potassium A-a O2 Difference Glucose Lactate Vent Mode Mechanical Rate FiO2 Inspiratory BiPAP Expiratory BiPAP Sodium 134 Potassium 4.8 Chloride 94 L Carbon Dioxide 26 Anion Gap 19 BUN 46 H Creatinine 3.9 H Est GFR ( Amer) 13 Est GFR (Non-Af Amer) 11 POC Glucose (mg/dL) 316 H Random Glucose 345 H Serum Osmolality 310 H Lactic Acid 4.4 H* Calcium 8.5 Total Bilirubin 0.6 AST 26 ALT 28 Alkaline Phosphatase 62 Total Creatine Kinase Total Protein 7.1 Albumin 3.7 Globulin 3.4 Albumin/Globulin Ratio 1.1 Arterial Blood Potassium Urine Osmolality Ur Random Creatinine Ur Random Sodium Ur Random Potassium 10/22/16 10/22/16 10/22/16 15:49 17:05 21:32 WBC RBC Hgb Hct MCV MCH MCHC RDW Plt Count MPV Neut % (Auto) Lymph % (Auto) Wirt % (Auto) Eos % (Auto) Baso % (Auto) Neut # Lymph # Wirt # Eos # Baso # PT INR APTT pCO2 pO2 HCO3 ABG pH ABG Total CO2 ABG O2 Saturation ABG Base Excess Tony Test ABG Potassium A-a O2 Difference Glucose Lactate Vent Mode Mechanical Rate FiO2 Inspiratory BiPAP Expiratory BiPAP Sodium Potassium Chloride Carbon Dioxide Anion Gap BUN Creatinine Est GFR ( Amer) Est GFR (Non-Af Amer) POC Glucose (mg/dL) 377 H Random Glucose Serum Osmolality Lactic Acid Calcium Total Bilirubin AST ALT Alkaline Phosphatase Total Creatine Kinase 102 Total Protein Albumin Globulin Albumin/Globulin Ratio Arterial Blood Potassium Urine Osmolality 328 Ur Random Creatinine 126.9 Ur Random Sodium 38 Ur Random Potassium 83.7 10/22/16 10/23/16 10/23/16 22:06 04:32 06:45 WBC 9.3 D RBC 3.28 L Hgb 8.8 L Hct 27.9 L MCV 85.0 MCH 26.9 L MCHC 31.6 L RDW 16.5 H Plt Count 174 MPV 9.2 Neut % (Auto) 80.4 H Lymph % (Auto) 13.7 L Wirt % (Auto) 5.2 Eos % (Auto) 0.3 Baso % (Auto) 0.4 Neut # 7.5 H Lymph # 1.3 Wirt # 0.5 Eos # 0.0 Baso # 0.0 PT INR APTT pCO2 pO2 HCO3 ABG pH ABG Total CO2 ABG O2 Saturation ABG Base Excess Tony Test ABG Potassium A-a O2 Difference Glucose Lactate Vent Mode Mechanical Rate FiO2 Inspiratory BiPAP Expiratory BiPAP Sodium 135 Potassium 4.3 Chloride 97 L Carbon Dioxide 26 Anion Gap 16 BUN 70 H Creatinine 3.7 H Est GFR ( Amer) 14 Est GFR (Non-Af Amer) 12 POC Glucose (mg/dL) 302 H 295 H Random Glucose 312 H Serum Osmolality Lactic Acid Calcium 7.8 L Total Bilirubin 0.4 AST 27 ALT 32 Alkaline Phosphatase 63 Total Creatine Kinase Total Protein 6.7 Albumin 3.2 L Globulin 3.5 Albumin/Globulin Ratio 0.9 L Arterial Blood Potassium Urine Osmolality Ur Random Creatinine Ur Random Sodium Ur Random Potassium 10/23/16 07:05 WBC RBC Hgb Hct MCV MCH MCHC RDW Plt Count MPV Neut % (Auto) Lymph % (Auto) Wirt % (Auto) Eos % (Auto) Baso % (Auto) Neut # Lymph # Wirt # Eos # Baso # PT INR APTT pCO2 47 H pO2 89 HCO3 24.5 ABG pH 7.34 L ABG Total CO2 26.8 ABG O2 Saturation 99.0 H ABG Base Excess -0.6 Tony Test Yes ABG Potassium 4.3 A-a O2 Difference 280.0 Glucose 335 H Lactate 2.4 H Vent Mode Bipap Mechanical Rate 16 FiO2 60.0 Inspiratory BiPAP 12 Expiratory BiPAP 6 Sodium 132.0 Potassium Chloride 103.0 Carbon Dioxide Anion Gap BUN Creatinine Est GFR ( Amer) Est GFR (Non-Af Amer) POC Glucose (mg/dL) Random Glucose Serum Osmolality Lactic Acid Calcium Total Bilirubin AST ALT Alkaline Phosphatase Total Creatine Kinase Total Protein Albumin Globulin Albumin/Globulin Ratio Arterial Blood Potassium 4.3 Urine Osmolality Ur Random Creatinine Ur Random Sodium Ur Random Potassium EKG/Cardiology Studies: Cardiology / EKG Studies 10/23/16 EKG [ELECTROCARDIOGRAM] Stat Comment: Mode Of Transportation: PORTABLE Reason For Exam: Tachycardia Does Patient Have a Pacemaker?: No Isolation: Special Contact 10/23/16 07:00 EKG [ELECTROCARDIOGRAM] Routine Comment: Mode Of Transportation: PORTABLE Reason For Exam: S/p SVT Isolation: Special Contact PERFORMING PHYSICIAN/PROVIDER:: Jay Santiago Fingerstick Blood Sugar Results: 295 Critical Care Progress Note - Nutrition Nutrition: Nutrition Category Date Time Status NPO Diet [DIET] Diets 10/22/16 Breakfast Active Assessment/Plan - Assessment and Plan (Free Text) Assessment: 1-Arrythmias: new onset rapid a fib: in ST at the moment on amiodrono GGT, could be due to levophed. Continue amiodoron GGT Dc levophed, switch to Neosynephrine 2-Anemia: Hb dropping, no obvious source but possibility of lower GIB , has sigmoid colitis Stool montserrat Repeat Hb in PM, if dropped further, will need transfusion and will ask for GI consult 3-Septic Shock: PNA: On Cipro and Azactam 4-VERITO: Sepsis induced: Continue antbiotics Continue pressors: neosynephrine Renal following, blood work ffrom this morning , awaited 5-Respiratory Failure: PNA:Pulm congestion: On Bipap: continue Waiting for CXR and will give diuretics, if needed.
[2016-10-23] MEDS: Albuterol-Ipratrop 3 mg / 0.5 (3 ml) UD INH SCH ×4 (07:43→19:41)
[2016-10-23] MEDS: Insulin Regular 100 units/ml SC SCH ×4 (07:58→22:15)
--- NOTE | 2016-10-23 08:14 | CON ---
DATE: 10/22/2016 LOCATION: The patient is located in ICU room 432. REQUESTING PHYSICIAN: Dr. Augie Gil. REASON FOR RENAL CONSULTATION: Acute renal failure and for further evaluation. HISTORY OF PRESENT ILLNESS: The patient is about an 86-year-old elderly female with a past medical history significant f or asthma, type 2 diabetes, hypertension, CHF, dementia, resident of skilled nursing who was admitted wi th chief complaints of productive cough, shortness of breath, and abdominal pain and congestion and t he patient is being treated for possible pneumonia and sepsis. Now, renal consult requested for eval uation of acute renal failure and unable to get much history from the patient. EMR reviewed and hist ory obtained from the review of the chart. The patient is hypotensive and tachycardic. PAST MEDICAL HISTORY: Diabetes type 2, hypertension, CHF, cardiomyopathy, asthma, dementia, anxiety, arthritis. PAST SURGICAL HISTORY: Appendectomy. ALLERGIES: ALLERGIC TO PENICILLIN. SOCIAL HISTORY: No smoking, no alcohol, no drugs. FAMILY HISTORY: Not significant. CURRENT MEDICATIONS: Include as follows: Azactam 1 gram q. 12 hours, Cipro 400 mg IV piggyback daily, dopamine 400 mcg in 250 mL at 13.6 mL per hour, DuoNeb inhaler, subcutaneous heparin 5000 q. 12 hours, Humulin R for sli ding scale, Lasix 40 mg IV daily, morphine 1 mg IV q. 6 hours, norepinephrine 4 mg IV q. 24 hours at 9.5 mL per hour, Protonix 40 mg daily, and Tylenol. REVIEW OF SYSTEMS: Significant for cough, shortness of breath, and abdominal pain. All other review of systems are revi ewed and are negative. PHYSICAL EXAMINATION: VITAL SIGNS: As follows; blood pressure 82/38, pulse 110, respirations 19, temperature 101.3, and T- max 101.5, and height is 5 feet, weight is 160 pounds. GENERAL: The patient is an 86-year-old elderly female, tachycardic, not in acute distress. HEENT: Pupils normal reactive to light and accommodation. Conjunctivae pink. Sclerae anicteric. T ongue is moist. NECK: Trachea is midline. LUNGS: Symmetric on both sides. Bilateral breath sounds present. No crackles. CARDIOVASCULAR: [place] at the sixth intercostal space midclavicular line. S1 and S2 audible. No murm ur or gallop. ABDOMEN: Slightly distended, soft, mild to moderate diffuse tenderness mostly in the left lower quad rant. No guarding, no rigidity. CERTIFIED MEDICAL BILLER: The patient is awake, oriented x 1. Cranial nerves II through XII grossly intact. Sensory and motor system is within normal limits. EXTREMITIES: No cyanosis, no clubbing, no edema. LABORATORY DATA: Include as follows: As of 10/22/2016, WBC 4.9, hemoglobin 9.7, hematocrit is 30.8, platelet 168. PT 13.6, PTT 33.1. ABG: pH 7.36, pCO2 46, pO2 of 72, bicarbonate is 25.1, saturation 96.8. Sodium 13 8, potassium 4.8, chloride 94, CO2 26, BUN 46, creatinine 3.9, glucose 345, and serum osmolality of 3 10. Lactic acid is 4.4 and calcium 8.5. Total bili of 0.6, AST 26, ALT 28, alkaline phosphatase is 62. Total protein 7.1, albumin 3.7. Urinalysis as of 10/21/2016, lina, cloudy, pH 5, specific grav ity 1.021, protein 30, glucose 50, ketones negative, blood negative, nitrites negative, bilirubin neg ative, urobilin is 0.2-1.0, leukocyte esterase negative, RBC 2, WBC 1, bacteria rare. Influenza A an d B screening negative. As of 10/21/2016, WBC 12.7, hemoglobin 12, hematocrit is 38.6, platelets 196 . As of 10/21/2016, sodium 133, potassium 5, chloride 93, CO2 23, BUN 35, creatinine 0.5, glucose 31 3, her baseline serum creatinine about 0.8 from the previous admission. Other laboratory data as of 10/21/2016, chest x-ray bibasilar airspace disease and small pleural effu sunshine. CT of the abdomen and pelvis, impression: No acute abdominal or pelvic abnormality, mild sigm oid diverticulosis without CT evidence of acute diverticulitis. No evidence of bowel obstruction. T here is mild cortical atrophy in both kidneys, no hydronephrosis or nephrolithiasis. There is a prob able tiny hemorrhagic cyst in the right kidney and a small exophytic cortical cyst in the left kidney . Suspect right lower lobe pneumonia and also suspected is mild left lower lobe pneumonia. SUMMARY: The patient is an 86-year-old elderly female with a history of hypertension, diabetes, hyperlipidemia , asthma, anxiety, arthritis, was admitted with cough, shortness of breath, and abdominal pain with e levated WBC count, increased BUN and creatinine, low blood pressure, and also echocardiogram from the previous admissions consistent with a poor LV function, ejection fraction about 25-30%, LVH, and dif fuse hypokinesia with increased BUN and creatinine. 1. Acute renal failure, most likely secondary to sepsis, hypotension, and acute tubular necrosis seco ndary to sepsis. 2. Cardiomyopathy. 3. Bilateral pneumonia. 4. Type 2 diabetes, uncontrolled. PLAN: Continue IV antibiotics Azactam and Cipro and we will start gentle IV hydration, normal saline at 60 mL per hour and also discontinue Lasix at this time. We will follow with you. Thank you for allowing me to participate in your patient's care. Overall, prognosis is very poor. Gurjit Comer MD cc: [id number] TT: 10/23/2016 08:13:25 Confirmation # [id number] Dictation # [id number] hn
[2016-10-23] MEDS: Aztreonam 1 GM in Sodium Chloride 0.9% 100 ML IVPB SCH ×2 (08:26→20:27)
[2016-10-23] MEDS: Ciprofloxacin 400mg/200ml D5W 200 ML IVPB SCH (08:28)
[2016-10-23] MEDS ORDERED: Vancomycin 1 g Inj IVPB SCH (08:30)
--- NOTE | 2016-10-23 08:38 | CP.PCM.CON ---
History of Present Illness - History of Present Illness History of Present Illness: Full Note Dictated Pneumonia with septic shock VERITO Transient A Fib with a bout of VT Severe LV syst and diastolic dysfunction H/O DM(II)/HTN/Asthma Diverticulosis VT was resolved with IV Lidocain A Fib resolved with IV Amiodarone Pressors being tapered down On BiPAP vent support Past Patient History - Past Medical History & Family History Past Medical History?: Yes - Past Social History Smoking Status: Never Smoked - CARDIAC Hx Cardiac Disorders: Yes Hx Congestive Heart Failure: Yes (CARDIOMEGALY) Hx Hypercholesterolemia: Yes Hx Hypertension: Yes Hx Peripheral Edema: Yes - PULMONARY Hx Respiratory Disorders: Yes Hx Asthma: Yes - NEUROLOGICAL Hx Neurological Disorder: No - HEENT Hx HEENT Problems: No - RENAL Hx Chronic Kidney Disease: No - ENDOCRINE/METABOLIC Hx Endocrine Disorders: Yes Hx Diabetes Mellitus Type 2: Yes Hx Hypothyroidism: Yes - HEMATOLOGICAL/ONCOLOGICAL Hx Human Immunodeficiency Virus (HIV): No - INTEGUMENTARY Hx Dermatological Problems: No - MUSCULOSKELETAL/RHEUMATOLOGICAL Hx Falls: Yes Hx Osteoarthritis: Yes - GASTROINTESTINAL Hx Gastrointestinal Disorders: No Hx Colitis: Yes Hx Diarrhea: Yes - GENITOURINARY/GYNECOLOGICAL Hx Genitourinary Disorders: No - PSYCHIATRIC Hx Anxiety: Yes Hx Substance Use: No - SURGICAL HISTORY Hx Appendectomy: Yes - ANESTHESIA Hx Anesthesia: Yes Hx Anesthesia Reactions: No Meds Allergies/Adverse Reactions: Allergies Allergy/AdvReac Type Severity Reaction Status Date / Time Penicillins Allergy RASH Verified 08/16/16 17:47 - Medications Medications: Current Medications Acetaminophen (Tylenol 650 Mg Supp) 650 mg DC Q6 PRN PRN Reason: Fever >100.4 F Last Admin: 10/23/16 04:33 Dose: 650 mg Albuterol/Ipratropium (Duoneb 3 Mg/0.5 Mg (3 Ml) Ud) 3 ml INH RQID [facility] Last Admin: 10/23/16 07:43 Dose: Not Given Heparin Sodium (Porcine) (Heparin) 5,000 units SC Q12 [facility] PRN Reason: Protocol Last Admin: 10/23/16 08:29 Dose: 5,000 units Aztreonam 1 gm/ Sodium (Chloride) 100 mls @ 100 mls/hr IVPB Q12 [facility] Last Admin: 10/23/16 08:26 Dose: 100 mls/hr Ciprofloxacin (Cipro 400mg/200ml Dsw) 200 mls @ 200 mls/hr IVPB DAILY [facility] Last Admin: 10/23/16 08:28 Dose: 200 mls/hr Norepinephrine Bitartrate 4 mg (/ Dextrose) 254 mls @ 9.52 mls/hr IV .Q24H [facility] ; 2.5 MCG/MIN PRN Reason: Protocol Last Admin: 10/23/16 06:00 Dose: 38.1 mls/hr Sodium Chloride (Sodium Chloride 0.9%) 1,000 mls @ 60 mls/hr IV .[id number] [facility] Stop: 10/24/16 16:01 Last Admin: 10/22/16 16:48 Dose: 60 mls/hr Lidocaine HCl/Dextrose (Lidocaine 2 Grams In D5w) 500 mls @ 15 mls/hr IV .Q24H [facility]; 1 MG/MIN PRN Reason: Protocol Last Admin: 10/23/16 05:05 Dose: 15 mls/hr Amiodarone HCl 900 mg/ (Dextrose) 518 mls @ 34.53 mls/hr IVPB .Q15H1M [facility]; 1 MG /MIN PRN Reason: Protocol Last Admin: 10/23/16 06:11 Dose: 34.53 mls/hr Insulin Human Regular (Humulin R) 0 units SC ACCU-CHECK [facility] PRN Reason: Protocol Last Admin: 10/23/16 07:58 Dose: 3 u Lorazepam (Ativan) 0.5 mg IVP Q4 PRN PRN Reason: Anxiety Last Admin: 10/23/16 00:48 Dose: 0.5 mg Morphine Sulfate (Morphine) 1 mg IVP Q3 PRN PRN Reason: Pain, severe (8-10) Last Admin: 10/23/16 05:30 Dose: 1 mg Pantoprazole Sodium (Protonix Inj) 40 mg IVP DAILY [facility] Last Admin: 10/23/16 08:30 Dose: 40 mg Vancomycin HCl (Vancomycin Inj) 1 gm IVPB Q48H [facility] Stop: 11/02/16 08:31 Results - Vital Signs Recent Vital Signs: Last Vital Signs Temp 99.4 F 10/23/16 08:00 Pulse 117 H 10/23/16 08:00 Resp 23 10/23/16 08:00 BP 111/39 L 10/23/16 08:00 Pulse Ox 96 10/23/16 08:00 - Labs Result Diagrams: 10/23/16 06:45 10/23/16 06:45 Labs: Laboratory Results - last 24 hr 10/22/16 10/22/16 10/22/16 03:18 06:00 12:13 WBC 4.9 D RBC 3.61 L Hgb 9.7 L D Hct 30.8 L MCV 85.3 D MCH 27.0 MCHC 31.6 L RDW 16.1 H Plt Count 168 MPV 9.1 Neut % (Auto) 67.2 Lymph % (Auto) 25.3 Power % (Auto) 7.0 Eos % (Auto) 0.1 Baso % (Auto) 0.4 Neut # 3.3 Lymph # 1.2 Power # 0.3 Eos # 0.0 Baso # 0.0 PT 13.6 H INR 1.31 H APTT 33.1 H pCO2 pO2 HCO3 ABG pH ABG Total CO2 ABG O2 Saturation ABG Base Excess Tony Test ABG Potassium A-a O2 Difference Glucose Lactate Vent Mode Mechanical Rate FiO2 Inspiratory BiPAP Expiratory BiPAP Sodium 134 Potassium 4.8 Chloride 94 L Carbon Dioxide 26 Anion Gap 19 BUN 46 H Creatinine 3.9 H Est GFR ( Amer) 13 Est GFR (Non-Af Amer) 11 POC Glucose (mg/dL) 316 H Random Glucose 345 H Serum Osmolality 310 H Lactic Acid 4.4 H* Calcium 8.5 Total Bilirubin 0.6 AST 26 ALT 28 Alkaline Phosphatase 62 Total Creatine Kinase Troponin I Total Protein 7.1 Albumin 3.7 Globulin 3.4 Albumin/Globulin Ratio 1.1 Arterial Blood Potassium Urine Osmolality Ur Random Creatinine Ur Random Sodium Ur Random Potassium 10/22/16 10/22/16 10/22/16 15:49 17:05 21:32 WBC RBC Hgb Hct MCV MCH MCHC RDW Plt Count MPV Neut % (Auto) Lymph % (Auto) Power % (Auto) Eos % (Auto) Baso % (Auto) Neut # Lymph # Power # Eos # Baso # PT INR APTT pCO2 pO2 HCO3 ABG pH ABG Total CO2 ABG O2 Saturation ABG Base Excess Tony Test ABG Potassium A-a O2 Difference Glucose Lactate Vent Mode Mechanical Rate FiO2 Inspiratory BiPAP Expiratory BiPAP Sodium Potassium Chloride Carbon Dioxide Anion Gap BUN Creatinine Est GFR ( Amer) Est GFR (Non-Af Amer) POC Glucose (mg/dL) 377 H Random Glucose Serum Osmolality Lactic Acid Calcium Total Bilirubin AST ALT Alkaline Phosphatase Total Creatine Kinase 102 Troponin I Total Protein Albumin Globulin Albumin/Globulin Ratio Arterial Blood Potassium Urine Osmolality 328 Ur Random Creatinine 126.9 Ur Random Sodium 38 Ur Random Potassium 83.7 10/22/16 10/23/16 10/23/16 22:06 04:32 06:45 WBC 9.3 D RBC 3.28 L Hgb 8.8 L Hct 27.9 L MCV 85.0 MCH 26.9 L MCHC 31.6 L RDW 16.5 H Plt Count 174 MPV 9.2 Neut % (Auto) 80.4 H Lymph % (Auto) 13.7 L Power % (Auto) 5.2 Eos % (Auto) 0.3 Baso % (Auto) 0.4 Neut # 7.5 H Lymph # 1.3 Power # 0.5 Eos # 0.0 Baso # 0.0 PT INR APTT pCO2 pO2 HCO3 ABG pH ABG Total CO2 ABG O2 Saturation ABG Base Excess Tony Test ABG Potassium A-a O2 Difference Glucose Lactate Vent Mode Mechanical Rate FiO2 Inspiratory BiPAP Expiratory BiPAP Sodium 135 Potassium 4.3 Chloride 97 L Carbon Dioxide 26 Anion Gap 16 BUN 70 H Creatinine 3.7 H Est GFR ( Amer) 14 Est GFR (Non-Af Amer) 12 POC Glucose (mg/dL) 302 H 295 H Random Glucose 312 H Serum Osmolality Lactic Acid Calcium 7.8 L Total Bilirubin 0.4 AST 27 ALT 32 Alkaline Phosphatase 63 Total Creatine Kinase Troponin I 0.0590 Total Protein 6.7 Albumin 3.2 L Globulin 3.5 Albumin/Globulin Ratio 0.9 L Arterial Blood Potassium Urine Osmolality Ur Random Creatinine Ur Random Sodium Ur Random Potassium 10/23/16 07:05 WBC RBC Hgb Hct MCV MCH MCHC RDW Plt Count MPV Neut % (Auto) Lymph % (Auto) Power % (Auto) Eos % (Auto) Baso % (Auto) Neut # Lymph # Power # Eos # Baso # PT INR APTT pCO2 47 H pO2 89 HCO3 24.5 ABG pH 7.34 L ABG Total CO2 26.8 ABG O2 Saturation 99.0 H ABG Base Excess -0.6 Tony Test Yes ABG Potassium 4.3 A-a O2 Difference 280.0 Glucose 335 H Lactate 2.4 H Vent Mode Bipap Mechanical Rate 16 FiO2 60.0 Inspiratory BiPAP 12 Expiratory BiPAP 6 Sodium 132.0 Potassium Chloride 103.0 Carbon Dioxide Anion Gap BUN Creatinine Est GFR ( Amer) Est GFR (Non-Af Amer) POC Glucose (mg/dL) Random Glucose Serum Osmolality Lactic Acid Calcium Total Bilirubin AST ALT Alkaline Phosphatase Total Creatine Kinase Troponin I Total Protein Albumin Globulin Albumin/Globulin Ratio Arterial Blood Potassium 4.3 Urine Osmolality Ur Random Creatinine Ur Random Sodium Ur Random Potassium
--- NOTE | 2016-10-23 09:57 | RAD ---
HISTORY: Resp distress F/U Pneumonia COMPARISON: Comparison chest 10/22/2016 FINDINGS: LUNGS: Re- demonstrated is bibasilar opacities that may represent some combination of atelectasis/infiltrate and effusion central pulmonary vasculature appears slightly less congested. No change in position right IJ central venous line with tip in the SVC/RA junction PLEURA: No pneumothorax apparent. CARDIOVASCULAR: Cardiomegaly. OSSEOUS STRUCTURES: No significant abnormalities. VISUALIZED UPPER ABDOMEN: Normal. OTHER FINDINGS: None. IMPRESSION: Slightly improved central pulmonary vascular congestion. Bibasilar opacities may represent some combination of atelectasis/infiltrate and effusion.
[2016-10-23] MEDS ORDERED: Digoxin 500 mcg/2ml (0.5 mg/2ml) Inj IVP SCH (12:30)
--- NOTE | 2016-10-23 15:08 | CON ---
DATE: 10/23/2016 She is hospitalized from the Emergency Room in intensive care unit. HISTORY OF PRESENT ILLNESS: This 86-year-old diabetic, hypertensive female was brought into the hosp ital with worsening shortness of breath and chest congestion and was found to have pneumonemia. She was in septic shock with hypotension and elevated serum lactate level and severe hypoxia, was being t reated with IV fluids and oxygen therapy and with pressors when this morning she developed an acute e pisode of atrial fibrillation during which she became severely hypotensive and had bouts of ventricul ar tachycardia which responded to IV lidocaine. The atrial fibrillation eventually resolved with ini tiation of intravenous amiodarone therapy. The patient has reverted back to sinus rhythm. PHYSICAL EXAMINATION: VITAL SIGNS: At this time, she remains on BiPAP ventilator support with a pulse oximetry of 96%-97%, has sinus rhythm with frequent premature ventricular beats, and premature atrial beats with a heart rate of 104 beats per minute, irregular. Her blood pressure was 114/65 mmHg. NECK: Her jugular venous pressure was not elevated. EXTREMITIES: There was no pedal edema. Pedal pulses were very difficult to palpate. The extremitie s were slightly cool to touch. Within the last hour, she has had scanty urine output, particularly f ollowing a recent bout of atrial fibrillation which has just reverted back to sinus rhythm. Extremit ies did not show any central or peripheral cyanosis. HEART: Sounds were distant. There was no gallop. LUNGS: Air entry was poor at both bases, faint crackles were audible. ABDOMEN: Soft, no organomegaly or guarding or rigidity was evident. NEUROLOGIC: The patient was poorly responsive to calling. Her electrocardiogram showed sinus rhythm with left ventricular hypertrophy at admission, a pattern s imilar to her electrocardiogram of August this year, during which she also had an echocardiogram, wh ich showed depressed left ventricular systolic function with an ejection fraction in the range of 30% . There was also significant left ventricular diastolic dysfunction which would probably explain her extreme intolerance to atrial fibrillation with a ventricular rate in 190s. LABORATORY DATA: Shows that she arrived in the hospital with leukocytosis, which subsequently appear s to have resolved with initial WBC count of 12,700 of which 80% were neutrophils. Her WBC count thi s morning was 9300 of which 80% again were neutrophils. Her BUN and creatinine at admission was 35 a nd 2.5 mg %, which this morning was 70 and 3.7 mg %. She had a normal potassium level. On arrival i n the hospital, she was significantly hypoxic with a pCO2 this morning of 47 mmHg and pO2 of 89 mmHg. Her pH was 7.34 and serum lactate on arrival in the hospital was 3.7 mEq per liter which this morni ng was 2.4. The FiO2 this morning was 60%. IMPRESSION AND PLAN: At this time is pneumonia with septic shock and severe ventilatory insufficienc y, acute kidney injury due to hypoperfusion, a bout of atrial fibrillation which was transient, promp tly resolving with therapy, ventricular tachycardia which appears to have resolved as well with hyper tension, diabetes, history of asthma, severe left ventricular systolic and diastolic dysfunction. Th e patient at this juncture is back in sinus rhythm appears to be adequately oxygenated. The peripher al perfusion appears to have been reestablished. She will be continued on amiodarone intravenously a nd her pressors have gradually been tapered down. At this point, she is hemodynamically stable and n o immediate intervention needs to be undertaken at this juncture. She will be monitored very closely in intensive care unit on a BiPAP ventilator support. Seth Lundberg MD cc: 23 TT: 10/23/2016 15:07:53 Confirmation # [id number] Dictation # [id number] dina
[2016-10-23 17:40] LABS: BASO % 0.7 % (0.0-2.0); EOS # 0.1 K/uL (0.0-0.7); EOS % 1.2 % (0.0-4.0); HEMATOCRIT 25.2 % (34.0-47.0); LYMPH # 0.8 K/uL (1.0-4.3); LYMPH % 14.8 % (20.0-40.0); MEAN CELL VOLUME 84.7 fl (81.0-99.0); MEAN CORPUSCULAR HEMOGLOBIN 27.1 pg (27.0-31.0); MONO # 0.3 K/uL (0.0-0.8); NEUT # 4.1 K/uL (1.8-7.0); NEUT % 77.3 % (50.0-75.0); PLATELET COUNT 154 K/uL (130-400); RED CELL DISTRIBUTION WIDTH 16.7 % (11.5-14.5); WHITE BLOOD COUNT 5.4 K/uL (4.8-10.8)
[2016-10-23 18:55] LABS: NEUTROPHIL 63 % (42-75); TOTAL CELLS COUNTED 100
--- NOTE | 2016-10-23 19:52 | CP.PCM.PN ---
Subjective - Date & Time of Evaluation Date of Evaluation: 10/23/16 - Subjective Subjective: F/U Acute respiratory failure. Pt confused with mumbling sounds, no following commands. Objective - Vital Signs/Intake and Output Vital Signs (last 24 hours): Temp Pulse Resp BP Pulse Ox 99.8 F H 107 H 20 101/43 L 99 10/23/16 19:44 10/23/16 18:00 10/23/16 18:00 10/23/16 18:00 10/23/16 18:00 Intake and Output: 10/23/16 10/24/16 18:59 06:59 Intake Total 1483 Output Total 250 Balance 1233 - Medications Medications: Current Medications Acetaminophen (Tylenol 650 Mg Supp) 650 mg IN Q6 PRN PRN Reason: Fever >100.4 F Last Admin: 10/23/16 04:33 Dose: 650 mg Albuterol/Ipratropium (Duoneb 3 Mg/0.5 Mg (3 Ml) Ud) 3 ml INH RQID [facility] Last Admin: 10/23/16 19:41 Dose: Not Given Heparin Sodium (Porcine) (Heparin) 5,000 units SC Q12 [facility] PRN Reason: Protocol Last Admin: 10/23/16 08:29 Dose: 5,000 units Aztreonam 1 gm/ Sodium (Chloride) 100 mls @ 100 mls/hr IVPB Q12 [facility] Last Admin: 10/23/16 08:26 Dose: 100 mls/hr Ciprofloxacin (Cipro 400mg/200ml Dsw) 200 mls @ 200 mls/hr IVPB DAILY [facility] Last Admin: 10/23/16 08:28 Dose: 200 mls/hr Sodium Chloride (Sodium Chloride 0.9%) 1,000 mls @ 60 mls/hr IV .[id number] [facility] Stop: 10/24/16 16:01 Last Admin: 10/22/16 16:48 Dose: 60 mls/hr Amiodarone HCl 900 mg/ (Dextrose) 518 mls @ 34.53 mls/hr IVPB .Q15H1M [facility]; 1 MG /MIN PRN Reason: Protocol Last Admin: 10/23/16 12:10 Dose: 16.7 mls/hr Vancomycin HCl 1 gm/ Sodium (Chloride) 250 mls @ 166.667 mls/hr IVPB Q48H [facility] Last Admin: 10/23/16 10:05 Dose: 166.667 mls/hr Insulin Human Regular (Humulin R) 0 units SC ACCU-CHECK [facility] PRN Reason: Protocol Last Admin: 10/23/16 17:13 Dose: 4 u Lorazepam (Ativan) 0.5 mg IVP Q4 PRN PRN Reason: Anxiety Last Admin: 10/23/16 12:04 Dose: 0.5 mg Morphine Sulfate (Morphine) 1 mg IVP Q3 PRN PRN Reason: Pain, severe (8-10) Last Admin: 10/23/16 11:32 Dose: 1 mg Pantoprazole Sodium (Protonix Inj) 40 mg IVP DAILY [facility] Last Admin: 10/23/16 08:30 Dose: 40 mg - Labs Labs: 10/23/16 17:34 10/23/16 06:45 PT 13.6 SECONDS (9.6-11.2) H 10/22/16 06:00 INR 1.31 (0.92-1.08) H 10/22/16 06:00 APTT 33.1 SECONDS (23.3-32.5) H 10/22/16 06:00 - Constitutional Appears: Chronically Ill - Head Exam Head Exam: NORMAL INSPECTION - Eye Exam Additional comments: Eyes closed upon examination, difficulty to exam. - ENT Exam ENT Exam: Normal Oropharynx Additional comments: On BIPAP - Neck Exam Neck Exam: Normal Inspection - Respiratory Exam Respiratory Exam: Decreased Breath Sounds (at bases), Rhonchi (scattere) - Cardiovascular Exam Cardiovascular Exam: Tachycardia, Irregular Rhythm - GI/Abdominal Exam GI & Abdominal Exam: Distended (slightly), Soft. absent: Guarding, Rebound - Extremities Exam Additional comments: Trace edema - Back Exam Additional comments: Healed sacral ulcer, R buttock open ulcer - Neurological Exam Neurological Exam: Awake Additional comments: Confused, forgetful, no gross focal motor deficit. - Psychiatric Exam Psychiatric exam: Anxious - Skin Skin Exam: Normal Color, Warm Assessment and Plan (1) Acute respiratory failure Status: Acute (2) Pneumonia Status: Acute (3) Septic shock Status: Acute (4) Abdominal pain Status: Acute (5) Uncontrolled diabetes mellitus Status: Acute (6) Acute renal failure (ARF) Status: Acute - Assessment and Plan (Free Text) Plan: A Fib today, on Amiodarone, Lopressor. ICU TIME: 40 MIN.
--- NOTE | 2016-10-23 20:34 | CARD ---
APPROVED REPORT EKG Measurement Heart [id number] <Conclusion> Sinus tachycardia Left ventricular hypertrophy with repolarization abnormality Abnormal ECG
--- NOTE | 2016-10-23 20:51 | CP.PCM.PCO ---
Physician Communication Note - Physician Communication Note Physician Communication Note: Called to evaluate this patient back in A Fib 156/ min.
[2016-10-24] MEDS ORDERED: Metoprolol 1 mg/ml Inj IVP STA (01:43)
[2016-10-24] MEDS: Sodium Chloride 0.9% 1,000 ML IV SCH (01:56)
[2016-10-24] MEDS: Amiodarone 900 MG in Dextrose 5% In Water 500 ML IVPB SCH (01:57)
[2016-10-24] MEDS: Digoxin 500 mcg/2ml (0.5 mg/2ml) Inj IVP SCH ×2 (02:56→08:18)
[2016-10-24 05:28] LABS: BASO % 0.2 % (0.0-2.0); EOS % 0.4 % (0.0-4.0); HEMATOCRIT 29.1 % (34.0-47.0); LYMPH # 1.2 K/uL (1.0-4.3); LYMPH % 13.2 % (20.0-40.0); MEAN CELL VOLUME 85.2 fl (81.0-99.0); MEAN CORPUSCULAR HEMOGLOBIN 27.3 pg (27.0-31.0); MEAN CORPUSCULAR HGB CONC 32.1 g/dL (33.0-37.0); MEAN PLATELET VOLUME 9.3 fl (7.2-11.7); MONO # 0.7 K/uL (0.0-0.8); MONO % 8.1 % (0.0-10.0); NEUT # 6.9 K/uL (1.8-7.0); NEUT % 78.1 % (50.0-75.0); NRBC % 0.1 % (0.0-0.0); RED CELL DISTRIBUTION WIDTH 16.7 % (11.5-14.5); WHITE BLOOD COUNT 8.8 K/uL (4.8-10.8)
[2016-10-24 06:01] LABS: POTASSIUM 5.1 MMOL/L (3.6-5.0)
[2016-10-24 06:04] LABS: CALCIUM 8.1 mg/dL (8.4-10.2)
[2016-10-24] MEDS: Insulin Regular 100 units/ml SC SCH ×4 (06:13→22:06)
--- NOTE | 2016-10-24 07:28 | CP.CCUPN ---
CCU Subjective - Physician Review Events Since Last Encounter (Free Text): 10/24/16 17:28 The Patient was seen and examined at the bedside in the ICU, Medical records reviewed, all clinical/lab/hemodynamic/radiographic data were reviewed and management issues were discussed and formulated 86 years old female with PMHx of HTN, Hypercholesterolemia, CHF, Anxiety, Arthritis, Asthma and type II diabetes who was brought in by EMS to the ED with a chief complaint of a productive cough , congestion, shortness of breath, and epigastric abdominal pain of three days duration. Patient denies any chest pain and fever/chills Admitted t\o the ICU for management of Septic shock, Acute respiratory failure Pt was od dopamine, central line was placed and it was siwtched to levophed and due to tachycardia was switch to neosynephrine. Pt awake and responsive, remains on Bipap, did not tolerate nasal cannula CCU Objective - Vital Signs / Intake & Output Vital Signs (Last 4 hours): Vital Signs Temp Pulse Resp BP Pulse Ox 10/24/16 06:06 104 H 9 L 136/55 L 100 10/24/16 06:00 120 H 20 136/55 L 99 10/24/16 04:47 110 H 20 149/69 100 10/24/16 04:46 132 H 10/24/16 04:00 98.6 F 133 H 21 149/51 L 98 Intake and Output (Last 8hrs): Intake & Output 10/23/16 10/24/16 10/24/16 22:59 06:59 14:59 Intake Total 633 770 Output Total 40 500 Balance 593 270 Intake: IV 465 668 Intake, Piggyback 168 102 Oral 0 0 Output: Urine 40 500 Urethral ([place]ullivan) 40 500 Other: # Bowel Movements 0 - Physical Exam Physical Exam Limitations: Positive for: Altered Mental Status Head: Positive for: Atraumatic, Normocephalic Pupils: Positive for: PERRL Extroacular Muscles: Positive for: EOMI Conjunctiva: Positive for: Normal. Negative for: Injected, Icteric Neck: Positive for: Normal Range of Motion, Trachea Midline. Negative for: Meningeal Signs, MIDLINE TENDERNESS, Paraspinal Tenderness, JVD, Lymphadenopathy , Bruit, Other Respiratory/Chest: Positive for: Decreased Breath Sounds, Retracting, Rhonchi. Negative for: Clear to Auscultation, Respiratory Distress Cardiovascular: Positive for: Irregular Rhythm, Peripheal Pulses Present, Tachycardic. Negative for: Regular Rate and Rhythm, Murmurs Abdomen: Positive for: Normal Bowel Sounds. Negative for: Tenderness, Distention, Peritoneal Signs Upper Extremity: Positive for: Normal Inspection, NORMAL PULSES, Capillary Refill < 2s. Negative for: Edema Lower Extremity: Positive for: Edema, NORMAL PULSES, Capillary Refill < 2 s. Negative for: CALF TENDERNESS Psychiatric: Positive for: Alert - Medications Active Medications: Active Medications Generic Name Dose Route Start Last Admin Trade Name Freq PRN Reason Stop Dose Admin Acetaminophen 650 mg 10/22/16 05:22 10/23/16 23:54 Tylenol 650 Mg Supp PA 650 mg Q6 PRN Administration Fever >100.4 F Albuterol/Ipratropium 3 ml 10/21/16 20:00 10/23/16 19:41 Duoneb 3 Mg/0.5 Mg (3 Ml) Ud INH Not Given RQID MEERA Digoxin 0.25 mg 10/24/16 03:00 10/24/16 02:56 Lanoxin IVP 0.25 mg Q6H MEERA Administration Heparin Sodium (Porcine) 5,000 units 10/21/16 21:00 10/23/16 20:26 Heparin SC 5,000 units Q12 MEERA Administration Protocol Aztreonam 1 gm/ Sodium 100 mls @ 100 mls/hr 10/21/16 21:00 10/23/16 20:27 Chloride IVPB 100 mls/hr Q12 MEERA Administration Ciprofloxacin 200 mls @ 200 mls/hr 10/22/16 09:00 10/23/16 08:28 Cipro 400mg/200ml Dsw IVPB 200 mls/hr DAILY MEERA Administration Sodium Chloride 1,000 mls @ 60 mls/hr 10/22/16 16:00 10/24/16 01:56 Sodium Chloride 0.9% IV 10/24/16 16:01 60 mls/hr .[id number] MEERA Administration Amiodarone HCl 900 mg/ 518 mls @ 34.53 mls/hr 10/23/16 05:54 10/24/16 01:57 Dextrose IVPB 16.7 mls/hr .Q15H1M MEERA Administration Protocol 1 MG/MIN Vancomycin HCl 1 gm/ Sodium 250 mls @ 166.667 mls/hr 10/23/16 10:00 10/23/16 10 :05 Chloride IVPB 166.667 mls/hr Q48H [facility]A Administration Insulin Human Regular 0 units 10/21/16 23:00 10/24/16 06:13 Humulin R SC 3 u ACCU-CHECK MEERA Administration Protocol Lorazepam 0.5 mg 10/22/16 22:38 10/23/16 12:04 Ativan IVP 0.5 mg Q4 PRN Administration Anxiety Morphine Sulfate 1 mg 10/22/16 22:37 10/23/16 11:32 Morphine IVP 1 mg Q3 PRN Administration Pain, severe (8-10) Pantoprazole Sodium 40 mg 10/22/16 09:00 10/23/16 08:30 Protonix Inj IVP 40 mg DAILY MEERA Administration - Patient Studies Lab Studies: Microbiology Studies 10/21/16 23:44 Blood Culture - Preliminary Blood NO GROWTH AFTER 48 HOURS 10/21/16 21:27 MRSA Culture (Admit) - Final Naris MRSA NOT DETECTED Lab Studies 10/24/16 10/24/16 10/23/16 Range/Units 04:37 04:20 21:04 WBC 8.8 D (4.8-10.8) K/uL RBC 3.41 L (3.80-5.20) Mil/uL Hgb 9.3 L (12.0-16.0) g/dL Hct 29.1 L (34.0-47.0) % MCV 85.2 (81.0-99.0) fl MCH 27.3 (27.0-31.0) pg MCHC 32.1 L (33.0-37.0) g/dL RDW 16.7 H (11.5-14.5) % Plt Count 189 (130-400) K/uL MPV 9.3 (7.2-11.7) fl Neut % (Auto) 78.1 H (50.0-75.0) % Lymph % (Auto) 13.2 L (20.0-40.0) % Hoke % (Auto) 8.1 (0.0-10.0) % Eos % (Auto) 0.4 (0.0-4.0) % Baso % (Auto) 0.2 (0.0-2.0) % Neut # 6.9 (1.8-7.0) K/uL Lymph # 1.2 (1.0-4.3) K/uL Hoke # 0.7 (0.0-0.8) K/uL Eos # 0.0 (0.0-0.7) K/uL Baso # 0.0 (0.0-0.2) K/uL Neutrophils % (Manual) (42-75) % Band Neutrophils % (0-2) % Lymphocytes % (Manual) (20-50) % Monocytes % (Manual) (0-10) % Platelet Estimate (NORMAL) Poikilocytosis (manual Anisocytosis (manual) Tear Drop Cells Ovalocytes Sodium 136 (132-148) mmol/l Potassium 5.1 H (3.6-5.0) MMOL/L Chloride 98 (98-107) mmol/L Carbon Dioxide 26 (22-30) mmol/L Anion Gap 17 (10-20) BUN 74 H (7-17) mg/dl Creatinine 3.1 H (0.7-1.2) mg/dL Est GFR ( Amer) 17 Est GFR (Non-Af Amer) 14 POC Glucose (mg/dL) 333 H 301 H (65-110) mg/dL Random Glucose 349 H (65-105) mg/dL Calcium 8.1 L (8.4-10.2) mg/dL Troponin I (0.00-0.120) ng/mL 10/23/16 10/23/16 10/23/16 Range/Units 17:34 16:00 10:51 WBC 5.4 (4.8-10.8) K/uL RBC 2.98 L (3.80-5.20) Mil/uL Hgb 8.1 L (12.0-16.0) g/dL Hct 25.2 L (34.0-47.0) % MCV 84.7 (81.0-99.0) fl MCH 27.1 (27.0-31.0) pg MCHC 32.0 L (33.0-37.0) g/dL RDW 16.7 H (11.5-14.5) % Plt Count 154 (130-400) K/uL MPV 9.0 (7.2-11.7) fl Neut % (Auto) 77.3 H (50.0-75.0) % Lymph % (Auto) 14.8 L (20.0-40.0) % Hoke % (Auto) 6.0 (0.0-10.0) % Eos % (Auto) 1.2 (0.0-4.0) % Baso % (Auto) 0.7 (0.0-2.0) % Neut # 4.1 (1.8-7.0) K/uL Lymph # 0.8 L (1.0-4.3) K/uL Hoke # 0.3 (0.0-0.8) K/uL Eos # 0.1 (0.0-0.7) K/uL Baso # 0.0 (0.0-0.2) K/uL Neutrophils % (Manual) 63 (42-75) % Band Neutrophils % 13 H* (0-2) % Lymphocytes % (Manual) 16 L (20-50) % Monocytes % (Manual) 8 (0-10) % Platelet Estimate Normal (NORMAL) Poikilocytosis (manual Slight Anisocytosis (manual) Slight Tear Drop Cells Slight Ovalocytes Slight Sodium (132-148) mmol/l Potassium (3.6-5.0) MMOL/L Chloride (98-107) mmol/L Carbon Dioxide (22-30) mmol/L Anion Gap (10-20) BUN (7-17) mg/dl Creatinine (0.7-1.2) mg/dL Est GFR ( Amer) Est GFR (Non-Af Amer) POC Glucose (mg/dL) 324 H 342 H (65-110) mg/dL Random Glucose (65-105) mg/dL Calcium (8.4-10.2) mg/dL Troponin I (0.00-0.120) ng/mL 10/23/16 Range/Units 06:45 WBC (4.8-10.8) K/uL RBC (3.80-5.20) Mil/uL Hgb (12.0-16.0) g/dL Hct (34.0-47.0) % MCV (81.0-99.0) fl MCH (27.0-31.0) pg MCHC (33.0-37.0) g/dL RDW (11.5-14.5) % Plt Count (130-400) K/uL MPV (7.2-11.7) fl Neut % (Auto) (50.0-75.0) % Lymph % (Auto) (20.0-40.0) % Hoke % (Auto) (0.0-10.0) % Eos % (Auto) (0.0-4.0) % Baso % (Auto) (0.0-2.0) % Neut # (1.8-7.0) K/uL Lymph # (1.0-4.3) K/uL Hoke # (0.0-0.8) K/uL Eos # (0.0-0.7) K/uL Baso # (0.0-0.2) K/uL Neutrophils % (Manual) (42-75) % Band Neutrophils % (0-2) % Lymphocytes % (Manual) (20-50) % Monocytes % (Manual) (0-10) % Platelet Estimate (NORMAL) Poikilocytosis (manual Anisocytosis (manual) Tear Drop Cells Ovalocytes Sodium (132-148) mmol/l Potassium (3.6-5.0) MMOL/L Chloride (98-107) mmol/L Carbon Dioxide (22-30) mmol/L Anion Gap (10-20) BUN (7-17) mg/dl Creatinine (0.7-1.2) mg/dL Est GFR ( Amer) Est GFR (Non-Af Amer) POC Glucose (mg/dL) (65-110) mg/dL Random Glucose (65-105) mg/dL Calcium (8.4-10.2) mg/dL Troponin I 0.0590 (0.00-0.120) ng/mL Laboratory Results - last 24 hr 10/23/16 10/23/16 10/23/16 06:45 10:51 16:00 WBC RBC Hgb Hct MCV MCH MCHC RDW Plt Count MPV Neut % (Auto) Lymph % (Auto) Hoke % (Auto) Eos % (Auto) Baso % (Auto) Neut # Lymph # Hoke # Eos # Baso # Neutrophils % (Manual) Band Neutrophils % Lymphocytes % (Manual) Monocytes % (Manual) Platelet Estimate Poikilocytosis (manual Anisocytosis (manual) Tear Drop Cells Ovalocytes Sodium Potassium Chloride Carbon Dioxide Anion Gap BUN Creatinine Est GFR ( Amer) Est GFR (Non-Af Amer) POC Glucose (mg/dL) 342 H 324 H Random Glucose Calcium Troponin I 0.0590 10/23/16 10/23/16 10/24/16 17:34 21:04 04:20 WBC 5.4 8.8 D RBC 2.98 L 3.41 L Hgb 8.1 L 9.3 L Hct 25.2 L 29.1 L MCV 84.7 85.2 MCH 27.1 27.3 MCHC 32.0 L 32.1 L RDW 16.7 H 16.7 H Plt Count 154 189 MPV 9.0 9.3 Neut % (Auto) 77.3 H 78.1 H Lymph % (Auto) 14.8 L 13.2 L Hoke % (Auto) 6.0 8.1 Eos % (Auto) 1.2 0.4 Baso % (Auto) 0.7 0.2 Neut # 4.1 6.9 Lymph # 0.8 L 1.2 Hoke # 0.3 0.7 Eos # 0.1 0.0 Baso # 0.0 0.0 Neutrophils % (Manual) 63 Band Neutrophils % 13 H* Lymphocytes % (Manual) 16 L Monocytes % (Manual) 8 Platelet Estimate Normal Poikilocytosis (manual Slight Anisocytosis (manual) Slight Tear Drop Cells Slight Ovalocytes Slight Sodium 136 Potassium 5.1 H Chloride 98 Carbon Dioxide 26 Anion Gap 17 BUN 74 H Creatinine 3.1 H Est GFR ( Amer) 17 Est GFR (Non-Af Amer) 14 POC Glucose (mg/dL) 301 H Random Glucose 349 H Calcium 8.1 L Troponin I 10/24/16 04:37 WBC RBC Hgb Hct MCV MCH MCHC RDW Plt Count MPV Neut % (Auto) Lymph % (Auto) Hoke % (Auto) Eos % (Auto) Baso % (Auto) Neut # Lymph # Hoke # Eos # Baso # Neutrophils % (Manual) Band Neutrophils % Lymphocytes % (Manual) Monocytes % (Manual) Platelet Estimate Poikilocytosis (manual Anisocytosis (manual) Tear Drop Cells Ovalocytes Sodium Potassium Chloride Carbon Dioxide Anion Gap BUN Creatinine Est GFR ( Amer) Est GFR (Non-Af Amer) POC Glucose (mg/dL) 333 H Random Glucose Calcium Troponin I EKG/Cardiology Studies: Cardiology / EKG Studies 10/23/16 07:00 EKG [ELECTROCARDIOGRAM] Routine Comment: Mode Of Transportation: PORTABLE Reason For Exam: S/p SVT Isolation: Special Contact PERFORMING PHYSICIAN/PROVIDER:: Jay Santiago Fingerstick Blood Sugar Results: 333 Review of Systems - Review of Systems Systems not reviewed;Unavailable: Dementia Critical Care Progress Note - Nutrition Nutrition: Nutrition Category Date Time Status NPO Diet [DIET] Diets 10/22/16 Breakfast Active Assessment/Plan (1) Acute respiratory failure Current Visit: Yes Status: Acute Priority: High (2) Pneumonia Current Visit: Yes Status: Acute Priority: High (3) Septic shock Current Visit: Yes Status: Acute Priority: High (4) VERITO (acute kidney injury) Current Visit: Yes Status: Acute (5) Uncontrolled diabetes mellitus Current Visit: Yes Status: Acute - Assessment and Plan (Free Text) Assessment: Acute hypoxic Respiratory Failure sec to Pneumonia and Pulmonary congestion Septic shock from Pneumonia A Flutter with 2:1 block with RVR VERITO: ATN CHF exacerbation Continue BIPAP Contniue IV VAnco, Cipro and azactam Amiodarone drip, on Digoxin load, received 2 doses so far Albuterol/Ipratropium INH RQID S/p Lasix 40 mg IV one dose now Renal, Cardiology consult appreciated
[2016-10-24] MEDS: Albuterol-Ipratrop 3 mg / 0.5 (3 ml) UD INH SCH ×4 (07:33→20:35)
[2016-10-24] MEDS: Aztreonam 1 GM in Sodium Chloride 0.9% 100 ML IVPB SCH ×2 (08:12→20:38)
[2016-10-24] MEDS: Ciprofloxacin 400mg/200ml D5W 200 ML IVPB SCH (08:16)
[2016-10-24 08:21] VITALS: PULSE 130
[2016-10-24] MEDS ORDERED: Metoprolol 1 mg/ml Inj IVP ONE (08:31)
--- NOTE | 2016-10-24 08:36 | CP.PCM.PN ---
Subjective - Date & Time of Evaluation Date of Evaluation: 10/24/16 Time of Evaluation: 08:15 - Subjective Subjective: Has reverted back to A Flutter/fib Now has A Flutter with 2:1 block and HR 139 BPM BP 126/70 mm Hg (Has put out 350 ml urine in 2 1/2 hrs) Pulse ox 96-97% Creatinine steadily dropping Has been on Amiodarone drip >24hrs Has received 2 doses of Digoxin 0.5 mg each and 0.25 mgX2 (with azotemia Will use Metoprolol to create higher A:V block and slow down HR Objective - Vital Signs/Intake and Output Vital Signs (last 24 hours): Temp Pulse Resp BP Pulse Ox 98.6 F 130 H 9 L 136/55 L 100 10/24/16 04:00 10/24/16 07:59 10/24/16 06:06 10/24/16 06:06 10/24/16 06:06 Intake and Output: 10/24/16 10/24/16 06:59 18:59 Intake Total 1095 150 Output Total 500 60 Balance 595 90 - Medications Medications: Current Medications Acetaminophen (Tylenol 650 Mg Supp) 650 mg NV Q6 PRN PRN Reason: Fever >100.4 F Last Admin: 10/23/16 23:54 Dose: 650 mg Albuterol/Ipratropium (Duoneb 3 Mg/0.5 Mg (3 Ml) Ud) 3 ml INH RQID [facility] Last Admin: 10/24/16 07:33 Dose: 3 ml Heparin Sodium (Porcine) (Heparin) 5,000 units SC Q12 [facility]ERA PRN Reason: Protocol Last Admin: 10/24/16 08:12 Dose: 5,000 units Aztreonam 1 gm/ Sodium (Chloride) 100 mls @ 100 mls/hr IVPB Q12 [facility] Last Admin: 10/24/16 08:12 Dose: 100 mls/hr Ciprofloxacin (Cipro 400mg/200ml Dsw) 200 mls @ 200 mls/hr IVPB DAILY [facility] Last Admin: 10/24/16 08:16 Dose: 200 mls/hr Sodium Chloride (Sodium Chloride 0.9%) 1,000 mls @ 60 mls/hr IV .[id number] [facility] Stop: 10/24/16 16:01 Last Admin: 10/24/16 01:56 Dose: 60 mls/hr Amiodarone HCl 900 mg/ (Dextrose) 518 mls @ 34.53 mls/hr IVPB .Q15H1M [facility]ERA; 1 MG /MIN PRN Reason: Protocol Last Admin: 10/24/16 01:57 Dose: 16.7 mls/hr Vancomycin HCl 1 gm/ Sodium (Chloride) 250 mls @ 166.667 mls/hr IVPB Q48H [facility] Last Admin: 10/23/16 10:05 Dose: 166.667 mls/hr Insulin Human Regular (Humulin R) 0 units SC ACCU-CHECK [facility]ERA PRN Reason: Protocol Last Admin: 10/24/16 06:13 Dose: 3 u Lorazepam (Ativan) 0.5 mg IVP Q4 PRN PRN Reason: Anxiety Last Admin: 10/23/16 12:04 Dose: 0.5 mg Morphine Sulfate (Morphine) 1 mg IVP Q3 PRN PRN Reason: Pain, severe (8-10) Last Admin: 10/23/16 11:32 Dose: 1 mg Pantoprazole Sodium (Protonix Inj) 40 mg IVP DAILY [facility] Last Admin: 10/24/16 08:22 Dose: 40 mg - Labs Labs: 10/24/16 04:20 10/24/16 04:20 PT 13.6 SECONDS (9.6-11.2) H 10/22/16 06:00 INR 1.31 (0.92-1.08) H 10/22/16 06:00 APTT 33.1 SECONDS (23.3-32.5) H 10/22/16 06:00
--- NOTE | 2016-10-24 10:28 | CP.PCM.PN ---
Subjective - Date & Time of Evaluation Date of Evaluation: 10/24/16 Time of Evaluation: 10:27 - Subjective Subjective: pt seen and examined, follow up consult is dictated #[id number] renal function is improving change ivf to 1/2 ns at 60 ml/hr check bmp in am, cisco nue iv abx Objective - Vital Signs/Intake and Output Vital Signs (last 24 hours): Temp Pulse Resp BP Pulse Ox 98.4 F 125 H 24 123/83 99 10/24/16 08:00 10/24/16 09:45 10/24/16 09:15 10/24/16 09:45 10/24/16 09:15 Intake and Output: 10/24/16 10/24/16 06:59 18:59 Intake Total 1095 150 Output Total 500 60 Balance 595 90 - Medications Medications: Current Medications Acetaminophen (Tylenol 650 Mg Supp) 650 mg [place] Q6 PRN PRN Reason: Fever >100.4 F Last Admin: 10/23/16 23:54 Dose: 650 mg Albuterol/Ipratropium (Duoneb 3 Mg/0.5 Mg (3 Ml) Ud) 3 ml INH RQID [facility] Last Admin: 10/24/16 07:33 Dose: 3 ml Heparin Sodium (Porcine) (Heparin) 5,000 units SC Q12 [facility] PRN Reason: Protocol Last Admin: 10/24/16 08:12 Dose: 5,000 units Aztreonam 1 gm/ Sodium (Chloride) 100 mls @ 100 mls/hr IVPB Q12 [facility] Last Admin: 10/24/16 08:12 Dose: 100 mls/hr Ciprofloxacin (Cipro 400mg/200ml Dsw) 200 mls @ 200 mls/hr IVPB DAILY [facility] Last Admin: 10/24/16 08:16 Dose: 200 mls/hr Sodium Chloride (Sodium Chloride 0.9%) 1,000 mls @ 60 mls/hr IV .[id number] [facility] Stop: 10/24/16 16:01 Last Admin: 10/24/16 01:56 Dose: 60 mls/hr Amiodarone HCl 900 mg/ (Dextrose) 518 mls @ 34.53 mls/hr IVPB .Q15H1M [facility]; 1 MG /MIN PRN Reason: Protocol Last Admin: 10/24/16 01:57 Dose: 16.7 mls/hr Vancomycin HCl 1 gm/ Sodium (Chloride) 250 mls @ 166.667 mls/hr IVPB Q48H [facility] Last Admin: 10/23/16 10:05 Dose: 166.667 mls/hr Insulin Human Regular (Humulin R) 0 units SC ACCU-CHECK [facility] PRN Reason: Protocol Last Admin: 10/24/16 06:13 Dose: 3 u Lorazepam (Ativan) 0.5 mg IVP Q4 PRN PRN Reason: Anxiety Last Admin: 10/23/16 12:04 Dose: 0.5 mg Morphine Sulfate (Morphine) 1 mg IVP Q3 PRN PRN Reason: Pain, severe (8-10) Last Admin: 10/23/16 11:32 Dose: 1 mg Pantoprazole Sodium (Protonix Inj) 40 mg IVP DAILY [facility] Last Admin: 10/24/16 08:22 Dose: 40 mg - Labs Labs: 10/24/16 04:20 10/24/16 04:20 PT 13.6 SECONDS (9.6-11.2) H 10/22/16 06:00 INR 1.31 (0.92-1.08) H 10/22/16 06:00 APTT 33.1 SECONDS (23.3-32.5) H 10/22/16 06:00
[2016-10-24] MEDS: Sodium Chloride 0.45% 1,000 ML IV SCH (10:30)
--- NOTE | 2016-10-24 14:16 | PQF GENQUE ---
Dr. Gil, (1) Type of rt. buttock ulcer POA?;or buttock ulcer ruled out? (2) Agree with Wound dry cleaning manager as follows?:10/24 note:ASSESSED BRIDGE OF NOSE , REMOVED BIPAP MASK AND FOUND STAGE 2 PRESSURE ULCER. ASSESSED LEFT UPPER CHEEK AFTER BIPAP MASK REMOVAL AND FOUND STAGE 2 PRESSURE ULCER. OR: Unable to determine OR: Other explanation of clinical findings Admission Assessment Nursing: Pressure Ulcer POA: Yes; Healed sacral pressure ulcer H and P:Decubitus Ulcer Present: Yes (Healed sacral ulcer.)----R buttock open ulcer. This form is a permanent part of the medical record Clarification of your documentation is requested to better reflect the severity of illness and intensity of treatment of your patient. Indicators present [] Specify: [] [] Specify: [] [] Specify: [] [] Specify: [] Location in the medical record that reflects the above clinical findings: [] Treatment Provided: [] PHYSICIAN'S RESPONSE Based on your medical judgment of the clinical indicators outlined above please clarify the following: [] Practitioner response [] If unable to determine, please check the box, sign and date. Present On Admission (POA) Indicator: [] Present at the time of admission [] Not present at the time of admission [] Clinically Undetermined In responding to this query, please exercise your independent professional judgment. The fact that a question is asked does not imply that any particular answer is desired or expected. Thank you for your clarification on this documentation. If you have any questions please call. * Thank you, Ashley Beltran RN BSN ext. #[phone] MTDD
--- NOTE | 2016-10-24 16:20 | CP.PCM.PN ---
Subjective - Date & Time of Evaluation Date of Evaluation: 10/24/16 - Subjective Subjective: F/U Respiratory Failure. Pt continue Confused, with mumbling sounds, no fever, HR 129, O2 Sat 99, on BIPAP Objective - Vital Signs/Intake and Output Vital Signs (last 24 hours): Temp Pulse Resp BP Pulse Ox 98.4 F 120 H 23 130/61 99 10/24/16 08:00 10/24/16 14:31 10/24/16 10:00 10/24/16 10:00 10/24/16 10:00 Intake and Output: 10/24/16 10/24/16 06:59 18:59 Intake Total 1095 503 Output Total 500 260 Balance 595 243 - Medications Medications: Current Medications Acetaminophen (Tylenol 650 Mg Supp) 650 mg VA Q6 PRN PRN Reason: Fever >100.4 F Last Admin: 10/24/16 16:07 Dose: 650 mg Albuterol/Ipratropium (Duoneb 3 Mg/0.5 Mg (3 Ml) Ud) 3 ml INH RQID [facility] Last Admin: 10/24/16 11:22 Dose: 3 ml Heparin Sodium (Porcine) (Heparin) 5,000 units SC Q12 [facility] PRN Reason: Protocol Last Admin: 10/24/16 08:12 Dose: 5,000 units Aztreonam 1 gm/ Sodium (Chloride) 100 mls @ 100 mls/hr IVPB Q12 [facility] Last Admin: 10/24/16 08:12 Dose: 100 mls/hr Ciprofloxacin (Cipro 400mg/200ml Dsw) 200 mls @ 200 mls/hr IVPB DAILY [facility] Last Admin: 10/24/16 08:16 Dose: 200 mls/hr Amiodarone HCl 900 mg/ (Dextrose) 518 mls @ 34.53 mls/hr IVPB .Q15H1M [facility]; 1 MG /MIN PRN Reason: Protocol Last Admin: 10/24/16 01:57 Dose: 16.7 mls/hr Vancomycin HCl 1 gm/ Sodium (Chloride) 250 mls @ 166.667 mls/hr IVPB Q48H [facility] Last Admin: 10/23/16 10:05 Dose: 166.667 mls/hr Sodium Chloride (Sodium Chloride 0.45%) 1,000 mls @ 60 mls/hr IV .[id number] [facility] Stop: 10/25/16 10:46 Last Admin: 10/24/16 10:30 Dose: 60 mls/hr Insulin Human Regular (Humulin R) 0 units SC ACCU-CHECK [facility] PRN Reason: Protocol Last Admin: 10/24/16 11:21 Dose: 5 u Lorazepam (Ativan) 0.5 mg IVP Q4 PRN PRN Reason: Anxiety Last Admin: 10/23/16 12:04 Dose: 0.5 mg Morphine Sulfate (Morphine) 1 mg IVP Q3 PRN PRN Reason: Pain, severe (8-10) Last Admin: 10/23/16 11:32 Dose: 1 mg Pantoprazole Sodium (Protonix Inj) 40 mg IVP DAILY [facility] Last Admin: 10/24/16 08:22 Dose: 40 mg - Labs Labs: 10/24/16 04:20 10/24/16 04:20 PT 13.6 SECONDS (9.6-11.2) H 10/22/16 06:00 INR 1.31 (0.92-1.08) H 10/22/16 06:00 APTT 33.1 SECONDS (23.3-32.5) H 10/22/16 06:00 - Constitutional Appears: No Acute Distress, Chronically Ill - Head Exam Head Exam: NORMAL INSPECTION - Eye Exam Eye Exam: PERRL - ENT Exam Additional comments: On BIPAP - Neck Exam Neck Exam: Normal Inspection - Respiratory Exam Respiratory Exam: Decreased Breath Sounds, Rhonchi (b/l) - Cardiovascular Exam Cardiovascular Exam: Tachycardia, Irregular Rhythm - GI/Abdominal Exam GI & Abdominal Exam: Distended (mild), Soft - Extremities Exam Extremities Exam: Pedal Edema - Back Exam Additional comments: Healed sacral ulcer, Ulcer R buttock - Neurological Exam Additional comments: Sedated, no gross focal motor deficit. - Skin Skin Exam: Normal Color, Warm Assessment and Plan (1) Acute respiratory failure Status: Acute (2) Pneumonia Status: Acute (3) Septic shock Status: Acute (4) Abdominal pain Status: Acute (5) Uncontrolled diabetes mellitus Status: Acute (6) Acute renal failure (ARF) Status: Acute (7) A-fib Status: Acute - Assessment and Plan (Free Text) Plan: Continue Aztreonam, Cipro, Vanco ,Amiodarone, Duo Neb , BIPAP , previously had Dig , Metropolol to control Heart rate ICU TIME: 40 MIN.
--- NOTE | 2016-10-24 19:54 | CARD ---
APPROVED REPORT EKG Measurement Heart [id number] <Conclusion> Atrial fibrillation with rapid ventricular response Incomplete left bundle branch block ST & T wave abnormality, consider lateral ischemia Abnormal ECG
--- NOTE | 2016-10-25 01:45 | PN ---
DATE: 10/24/2016 The patient is located in ICU room 432, bed 1. REQUESTED BY: Dr. Augie Gil. REASON FOR FOLLOWUP: Acute renal failure and for further evaluation. HISTORY OF PRESENT ILLNESS: The patient is an 86-year-old elderly female with a past medica l history significant for hypertension, hyperlipidemia, diabetes, cardiomyopathy, asthma, arthritis, and dementia, resident of [facility]way, was admitted with shortness of breath and dyspnea and the pat ient is being treated for possible pneumonia and sepsis. The patient was initially started on presso rs. Now, the patient is off pressors, on gentle IV hydration and on IV antibiotics. The patient is not in acute distress. Urine output is improving. The patient is awake, not responding to verbal co mmands, not in distress. PHYSICAL EXAMINATION: VITAL SIGNS: As follows: Blood pressure this morning about 142/76, pulse about 125, respiration 24, saturation 99%, temperature 98.4, T-max is 100.4. Height is 5 feet and weight is 160 pounds. GENERAL: The patient is an 86-year-old elderly female, moderately built, moderately nourished, not i n any distress. HEENT: Pupils normal reactive to light and accommodation. Conjunctivae pink. Sclerae anicteric. T ongue is moist. NECK: Trachea midline. LUNGS: Symmetric on both sides. Bilateral breath sounds present. Occasional basal crackles present . CARDIOVASCULAR: [place] at the sixth intercostal space midclavicular line. S1 and S2 audible. No murm ur or gallop. ABDOMEN: Normal in appearance, slightly distended, soft, tympanic. No guarding, no rigidity. CENTRAL NERVOUS SYSTEM: The patient is awake, oriented x 0-2. EXTREMITIES: No cyanosis, no clubbing, no edema. Cranial nerves II-XII grossly intact. Sensory and motor system is within normal limits. CURRENT MEDICATIONS: Include as follows: Amiodarone, Ativan 0.5 mg IV q. 4 hours p.r.n., Azactam 1 gram q. 12 hours, ciprofloxacin 400 mg IV daily, DuoNeb inhaler, subQ heparin 5000 q. 12 hours, Humul in R for sliding scale, morphine 1 mg IV q. 3 hours p.r.n. for severe pain, Protonix 40 mg IV daily a nd IV fluids, normal saline at 60 mL per hour, Tylenol, and vancomycin 1 gram q. 48 hours, digoxin 0. 25 mg IV q. 6 hours. Her I's and O's: As follows: Intake is 1863 and output is about 800. LABORATORY DATA: Include as follows: As of 10/24/2016. WBC 8.8, hemoglobin 9.3, hematocrit is 29.1 , platelets 189. Sodium 136, potassium 5.1, chloride 98, CO2 of 26, BUN 74, creatinine 3.1, glucose of 349, calcium 8.1. Other reports, urine culture is negative as of 10/21/2016, no growth and MRSA s creening negative and blood culture x 1 negative day #2. Chest x-ray as of 10/23/2016: Impression: Slightly improved central pulmonary vascular congestion, bibasilar opacities may represent some combination of atelectasis and infiltrates and effusion. SUMMARY: The patient is about 86-year-old elderly female with a history of hypertension, di abetes, congestive heart failure, coronary artery disease, cardiomyopathy with LV function about 25-3 0%, asthma, CHF, was admitted with shortness of breath and fever, elevated WBC count, increased BUN a nd creatinine and oliguria initially and hypotension now. 1. Nonoliguric acute renal failure, most likely secondary to acute tubular necrosis secondary to sep sis. 2. Cardiomyopathy. 3. Pneumonia. 4. Rule out urosepsis. Initially urine examination, urinalysis is not consistent with urinary tract infection. Urine culture was negative and urine osmolality 328, urine creatinine 126.9, urine sodiu m 38, and urine potassium 83.7. Acute renal failure is most likely secondary to acute tubular necros is secondary to sepsis, doubt urosepsis. We will follow with you. Continue IV antibiotics, cannot rule out pneumonia are/or CHF. Renal function is slowly improving. Thank you for allowing me to participate in your patient's care and we will change IV fluids to half normal saline at 60 mL per hour. Gurjit Comer MD cc: [id number] TT: 10/25/2016 01:43:45 Confirmation # [id number] Dictation # [id number] in
[2016-10-25] MEDS: Sodium Chloride 0.45% 1,000 ML IV SCH (02:37)
[2016-10-25] MEDS: Insulin Regular 100 units/ml SC SCH ×4 (06:22→22:56)
[2016-10-25 07:15] LABS: CALCIUM 8.7 mg/dL (8.4-10.2); POTASSIUM 4.3 MMOL/L (3.6-5.0)
[2016-10-25 07:57] LABS: HEMATOCRIT 29.1 % (34.0-47.0); MEAN CORPUSCULAR HEMOGLOBIN 26.9 pg (27.0-31.0); MEAN CORPUSCULAR HGB CONC 31.7 g/dL (33.0-37.0); RED CELL DISTRIBUTION WIDTH 16.9 % (11.5-14.5); WHITE BLOOD COUNT 7.7 K/uL (4.8-10.8)
[2016-10-25] MEDS: Aztreonam 1 GM in Sodium Chloride 0.9% 100 ML IVPB SCH ×2 (08:29→20:11)
[2016-10-25] MEDS: Ciprofloxacin 400mg/200ml D5W 200 ML IVPB SCH (08:38)
[2016-10-25] MEDS: Albuterol-Ipratrop 3 mg / 0.5 (3 ml) UD INH SCH ×4 (09:32→20:05)
[2016-10-25] MEDS ORDERED: Chlorhexidine Gluconate 1 APPL/PKT TP ONE (11:56)
--- NOTE | 2016-10-25 12:34 | PQF GENQUE ---
Dr. Gil, (1) In agreement with Immigration Law Specialist dx.:CHF exacerbation ? if yes: (2) Type if known:Systolic or Diastolic or both? OR: Disagree OR: Unable to determine 10/22/16:Dr. Mckenzie Immigration Law Specialist:Pt was given 1700 cc NS until last night with no urine output, will do renal US or bladder scan to r /o obstruction, which is not likely. Will not give more fluid, rather she needs diuretics has she has pulm congestion, with h/o cardiomyopathy and low EF; Lungs' Scattered rhonchi, bilateral basal crackles;Lasix 40 mg IV one dose now and order for Lasix IV OD ; order discontinued 10/24 Dr. Perez Intenivist: Respiratory/Chest: Positive for: Decreased Breath Sounds, Retracting, Rhonchi. Negative for: Clear to Auscultation, Respiratory Distress; Imp: includes CHF Exacerbation: S/P Lasix 40 mg IV one dose now: listed in the note 10/24 Renal note:hx. of heart failure, CAD, cardiomyopathy with LV function about 25-30%, This form is a permanent part of the medical record Clarification of your documentation is requested to better reflect the severity of illness and intensity of treatment of your patient. Indicators present [] Specify: [] [] Specify: [] [] Specify: [] [] Specify: [] Location in the medical record that reflects the above clinical findings: [] Treatment Provided: [] PHYSICIAN'S RESPONSE Based on your medical judgment of the clinical indicators outlined above please clarify the following: [] Practitioner response [] If unable to determine, please check the box, sign and date. Present On Admission (POA) Indicator: [] Present at the time of admission [] Not present at the time of admission [] Clinically Undetermined In responding to this query, please exercise your independent professional judgment. The fact that a question is asked does not imply that any particular answer is desired or expected. Thank you for your clarification on this documentation. If you have any questions please call. * Thank you, Ashley Beltran RN BSN ext. #[phone] MTDD
--- NOTE | 2016-10-25 14:51 | CP.CCUPN ---
CCU Subjective - Physician Review Events Since Last Encounter (Free Text): 10/25/16 14:51 The Patient was seen and examined at the bedside in the ICU, Medical records reviewed, all clinical/lab/hemodynamic/radiographic data were reviewed and management issues were discussed and formulated 86 years old female with PMHx of HTN, Hypercholesterolemia, CHF, Anxiety, Arthritis, Asthma and type II diabetes who was brought in by EMS to the ED on 10/21 with a chief complaint of a productive cough, congestion, shortness of breath, and epigastric abdominal pain of three days duration. Patient also c/o abdominal discomfort, denies any chest pain and fever/chills Underwent CT Abdomen and Pelvis without intravenous contrast showing no acute intra ADB pathology but positive for bilateral lower lobe R worse than L airspace disease Pt admitted to the ICU for management of Septic shock, Acute Hypoxemic respiratory failure Started on Empiric antibiotics coverage with Vanco, Cipro and Azactam, placed on BIPAP support, 10/5 with FIO2 of 40%. Pt was on dopamine, central line was placed and it was switched to levophed and due to tachycardia was switch to neosynephrine. Pt awake and responsive, remains on Bipap, this morning switched to HFNC, has been tolerating, adequate saturation, Afebrile, BP elevated congested on exam and will give 40 mg IV Lasix Will be evaluated by speech/swallow therapy today 10/25/16 15:00 Exam Date : 10/21/2016 CT Abdomen and Pelvis without intravenous contrast FINDINGS: LOWER THORAX: There is interval development of confluent airspace disease in the right lower lobe and to a lesser extent in the left lower lobe. LIVER: The liver is normal in size. There is no biliary ductal dilatation. GALLBLADDER AND BILE DUCTS: There is a tiny calcified gallstone. PANCREAS: There is mild diffuse atrophy of the pancreas. No calcifications or ductal dilatation. SPLEEN: The spleen is normal in size. ADRENALS: Both adrenal glands are normal in size without discrete nodule. KIDNEYS AND URETERS: There is mild cortical atrophy in both kidneys. No hydronephrosis or nephrolithiasis. There is a probable tiny hemorrhagic cyst in the right kidney and a small exophytic cortical cyst in the left kidney. VASCULATURE: The aorta is normal in caliber. BOWEL: The small bowel loops are normal in caliber. There is mild sigmoid diverticulosis without CT evidence for acute diverticulitis. APPENDIX: No evidence of inflammatory changes in the right lower quadrant. The appendix is surgically absent. PERITONEUM: No free fluid. No free air. LYMPH NODES: No enlarged lymph nodes. BLADDER: Grossly normal in appearance. REPRODUCTIVE: There is age-appropriate atrophy of the uterus. No adnexal masses. . BONES: Status post bilateral hip arthroplasty. No acute fracture. IMPRESSION: 1. No acute abdominal or pelvic abnormality. Mild sigmoid diverticulosis without CT evidence for acute diverticulitis. No evidence of bowel obstruction. 2. Suspect right lower lobe pneumonia and also suspected is mild left lower lobe pneumonia. CCU Objective - Vital Signs / Intake & Output Vital Signs (Last 4 hours): Vital Signs Temp Pulse Resp BP Pulse Ox 10/25/16 12:00 99.3 F 98 H 20 171/77 H 96 10/25/16 11:52 28 H 10/25/16 11:00 99 H 26 H 177/67 H 96 Intake and Output (Last 8hrs): Intake & Output 10/24/16 10/25/16 10/25/16 22:59 06:59 14:59 Intake Total 1054 752 660 Output Total 200 800 Balance 854 -48 660 Weight 167 lb Intake: IV 488 480 310 Intake, Piggyback 566 272 350 Oral 0 0 Output: Urine 200 800 Urethral ([place]) 200 800 Other: # Bowel Movements 0 - Physical Exam Head: Positive for: Atraumatic, Normocephalic Pupils: Positive for: PERRL Extroacular Muscles: Positive for: EOMI Conjunctiva: Positive for: Normal. Negative for: Injected, Icteric Neck: Positive for: Normal Range of Motion, Trachea Midline. Negative for: Meningeal Signs, MIDLINE TENDERNESS, Paraspinal Tenderness, JVD, Lymphadenopathy , Bruit, Other Respiratory/Chest: Positive for: Decreased Breath Sounds, Rales, Rhonchi, Tachypneic. Negative for: Clear to Auscultation, Respiratory Distress, Wheezes , Retracting, Tender to Palpation Cardiovascular: Positive for: Irregular Rhythm, Peripheal Pulses Present, Tachycardic. Negative for: Regular Rate and Rhythm, Murmurs Abdomen: Positive for: Normal Bowel Sounds. Negative for: Tenderness, Distention, Peritoneal Signs Upper Extremity: Positive for: Normal Inspection, Edema, NORMAL PULSES, Capillary Refill < 2s Lower Extremity: Positive for: Edema, NORMAL PULSES, Capillary Refill < 2 s. Negative for: CALF TENDERNESS Neurological: Positive for: Motor Func Grossly Intact Psychiatric: Positive for: Alert, Anxious, Agitated - Medications Active Medications: Active Medications Generic Name Dose Route Start Last Admin Trade Name Freq PRN Reason Stop Dose Admin Acetaminophen 650 mg 10/22/16 05:22 10/24/16 16:07 Tylenol 650 Mg Supp SC 650 mg Q6 PRN Administration Fever >100.4 F Albuterol/Ipratropium 3 ml 10/21/16 20:00 10/25/16 11:51 Duoneb 3 Mg/0.5 Mg (3 Ml) Ud INH 3 ml RQID MEERA Administration Heparin Sodium (Porcine) 5,000 units 10/21/16 21:00 10/25/16 11:03 Heparin SC 5,000 units Q12 MEERA Administration Protocol Aztreonam 1 gm/ Sodium 100 mls @ 100 mls/hr 10/21/16 21:00 10/25/16 08:29 Chloride IVPB 100 mls/hr Q12 [facility]ERA Administration Ciprofloxacin 200 mls @ 200 mls/hr 10/22/16 09:00 10/25/16 08:38 Cipro 400mg/200ml Dsw IVPB 200 mls/hr DAILY [facility]ER[facility] Administration Amiodarone HCl 900 mg/ 518 mls @ 34.53 mls/hr 10/23/16 05:54 10/24/16 01:57 Dextrose IVPB 16.7 mls/hr .Q15H1M [facility] Administration Protocol 1 MG/MIN Vancomycin HCl 1 gm/ Sodium 250 mls @ 166.667 mls/hr 10/23/16 10:00 10/25/16 11 :01 Chloride IVPB 166.667 mls/hr Q48H [facility] Administration Insulin Human Regular 0 units 10/21/16 23:00 10/25/16 12:38 Humulin R SC 3 u ACCU-CHECK [facility]ERA Administration Protocol Lorazepam 0.5 mg 10/22/16 22:38 10/25/16 12:29 Ativan IVP 0.5 mg Q4 PRN Administration Anxiety Morphine Sulfate 1 mg 10/22/16 22:37 10/23/16 11:32 Morphine IVP 1 mg Q3 PRN Administration Pain, severe (8-10) Pantoprazole Sodium 40 mg 10/22/16 09:00 10/25/16 08:39 Protonix Inj IVP 40 mg DAILY [facility]ERA Administration - Patient Studies Lab Studies: Microbiology Studies 10/21/16 23:44 Blood Culture - Preliminary Blood NO GROWTH AFTER 3 DAYS Lab Studies 10/25/16 10/25/16 10/25/16 Range/Units 12:07 05:40 04:26 WBC 7.7 (4.8-10.8) K/uL RBC 3.42 L (3.80-5.20) Mil/uL Hgb 9.2 L (12.0-16.0) g/dL Hct 29.1 L (34.0-47.0) % MCV 85.0 (81.0-99.0) fl MCH 26.9 L (27.0-31.0) pg MCHC 31.7 L (33.0-37.0) g/dL RDW 16.9 H (11.5-14.5) % Plt Count 190 (130-400) K/uL Sodium 137 (132-148) mmol/l Potassium 4.3 (3.6-5.0) MMOL/L Chloride 103 (98-107) mmol/L Carbon Dioxide 24 (22-30) mmol/L Anion Gap 14 (10-20) BUN 69 H (7-17) mg/dl Creatinine 1.9 H (0.7-1.2) mg/dL Est GFR ( Amer) 30 Est GFR (Non-Af Amer) 25 POC Glucose (mg/dL) 278 H 333 H (65-110) mg/dL Random Glucose 300 H (65-105) mg/dL Calcium 8.7 (8.4-10.2) mg/dL Cold Agglutinins (NEGATIVE) 10/24/16 10/24/16 10/24/16 Range/Units 21:40 16:15 14:20 WBC (4.8-10.8) K/uL RBC (3.80-5.20) Mil/uL Hgb (12.0-16.0) g/dL Hct (34.0-47.0) % MCV (81.0-99.0) fl MCH (27.0-31.0) pg MCHC (33.0-37.0) g/dL RDW (11.5-14.5) % Plt Count (130-400) K/uL Sodium (132-148) mmol/l Potassium (3.6-5.0) MMOL/L Chloride (98-107) mmol/L Carbon Dioxide (22-30) mmol/L Anion Gap (10-20) BUN (7-17) mg/dl Creatinine (0.7-1.2) mg/dL Est GFR ( Amer) Est GFR (Non-Af Amer) POC Glucose (mg/dL) 338 H 316 H (65-110) mg/dL Random Glucose (65-105) mg/dL Calcium (8.4-10.2) mg/dL Cold Agglutinins Negative (NEGATIVE) Laboratory Results - last 24 hr 10/24/16 10/24/16 10/24/16 14:20 16:15 21:40 WBC RBC Hgb Hct MCV MCH MCHC RDW Plt Count Sodium Potassium Chloride Carbon Dioxide Anion Gap BUN Creatinine Est GFR ( Amer) Est GFR (Non-Af Amer) POC Glucose (mg/dL) 316 H 338 H Random Glucose Calcium Cold Agglutinins Negative 10/25/16 10/25/16 10/25/16 04:26 05:40 12:07 WBC 7.7 RBC 3.42 L Hgb 9.2 L Hct 29.1 L MCV 85.0 MCH 26.9 L MCHC 31.7 L RDW 16.9 H Plt Count 190 Sodium 137 Potassium 4.3 Chloride 103 Carbon Dioxide 24 Anion Gap 14 BUN 69 H Creatinine 1.9 H Est GFR ( Amer) 30 Est GFR (Non-Af Amer) 25 POC Glucose (mg/dL) 333 H 278 H Random Glucose 300 H Calcium 8.7 Cold Agglutinins Fingerstick Blood Sugar Results: 278 Review of Systems - Review of Systems Systems not reviewed;Unavailable: Altered Mental Status Critical Care Progress Note - Nutrition Nutrition: Nutrition Category Date Time Status NPO Diet [DIET] Diets 10/22/16 Breakfast Active Assessment/Plan (1) Acute respiratory failure Current Visit: Yes Status: Acute Priority: High (2) Pneumonia Current Visit: Yes Status: Acute Priority: High (3) Septic shock Current Visit: Yes Status: Acute Priority: High (4) VERITO (acute kidney injury) Current Visit: Yes Status: Acute (5) Uncontrolled diabetes mellitus Current Visit: Yes Status: Acute - Assessment and Plan (Free Text) Assessment: Acute hypoxic Respiratory Failure sec to Pneumonia and Pulmonary congestion Septic shock from Pneumonia A Flutter with 2:1 block with RVR VERITO: ATN CHF exacerbation Wean off BIPAP (BIPAP support, 05/18 with FIO2 of 40%.) Pt switched to HFNC this morning and has been tolerating, saturation 93-98% Contniue Empiric antibiotics coverage with IV VAnco, Cipro and azactam Amiodarone drip, on Digoxin load, received 2 doses so far Albuterol/Ipratropium INH RQID PRN Lasix 40 mg IV, one dose now Renal, Cardiology consult appreciated Will be evaluated by speech/swallow therapy today
[2016-10-25] MEDS: Amiodarone 900 MG in Dextrose 5% In Water 500 ML IVPB SCH ×2 (18:20→18:22)
[2016-10-26] MEDS ORDERED: Chlorhexidine Gluconate 1 APPL/PKT TP ONE ×3 (00:48→16:23)
[2016-10-26 05:28] LABS: HEMATOCRIT 30.1 % (34.0-47.0); MEAN CORPUSCULAR HEMOGLOBIN 27.2 pg (27.0-31.0); RED CELL DISTRIBUTION WIDTH 16.4 % (11.5-14.5); WHITE BLOOD COUNT 7.1 K/uL (4.8-10.8)
[2016-10-26 05:43] LABS: CALCIUM 9.3 mg/dL (8.4-10.2); POTASSIUM 3.5 MMOL/L (3.6-5.0)
[2016-10-26] MEDS: Insulin Regular 100 units/ml SC SCH ×4 (06:36→23:02)
[2016-10-26] MEDS: Aztreonam 1 GM in Sodium Chloride 0.9% 100 ML IVPB SCH ×2 (08:14→20:45)
[2016-10-26] MEDS: Albuterol-Ipratrop 3 mg / 0.5 (3 ml) UD INH SCH ×4 (08:28→19:53)
[2016-10-26] MEDS: Ciprofloxacin 400mg/200ml D5W 200 ML IVPB SCH (08:44)
[2016-10-26] MEDS ORDERED: Potassium Chloride 20 mEq/15 ml LIQ UD GT ONE (09:28)
--- NOTE | 2016-10-26 09:38 | CP.PCM.PN ---
Subjective - Date & Time of Evaluation Date of Evaluation: 10/26/16 Time of Evaluation: 09:20 - Subjective Subjective: Has reverted to sinus rhythm at 80 BPM On O2 supplement by N/C Pulse Ox 96% BP 120/70 mm Hg Pt confused, disoriented Chest :Bilat wheez No gallop Today's EKG shows QTC of 547 msec IV Amiodarone was D/Jaron Low dose Amiodarone through NGT started K+ replacement ordered. Objective - Vital Signs/Intake and Output Vital Signs (last 24 hours): Temp Pulse Resp BP Pulse Ox 98.8 F 101 H 20 148/77 96 10/26/16 04:00 10/26/16 06:00 10/26/16 08:29 10/26/16 06:00 10/26/16 06:00 Intake and Output: 10/26/16 10/26/16 06:59 18:59 Intake Total 450 33 Output Total 2400 Balance -1950 33 - Medications Medications: Current Medications Acetaminophen (Tylenol 650 Mg Supp) 650 mg AL Q6 PRN PRN Reason: Fever >100.4 F Last Admin: 10/24/16 16:07 Dose: 650 mg Albuterol/Ipratropium (Duoneb 3 Mg/0.5 Mg (3 Ml) Ud) 3 ml INH RQID [facility] Last Admin: 10/26/16 08:28 Dose: 3 ml Amiodarone HCl (Cordarone) 100 mg GT BID [facility] Heparin Sodium (Porcine) (Heparin) 5,000 units SC Q12 MEERA PRN Reason: Protocol Last Admin: 10/26/16 08:15 Dose: 5,000 units Aztreonam 1 gm/ Sodium (Chloride) 100 mls @ 100 mls/hr IVPB Q12 [facility] Last Admin: 10/26/16 08:14 Dose: 100 mls/hr Ciprofloxacin (Cipro 400mg/200ml Dsw) 200 mls @ 200 mls/hr IVPB DAILY [facility] Last Admin: 10/26/16 08:44 Dose: 200 mls/hr Vancomycin HCl 1 gm/ Sodium (Chloride) 250 mls @ 166.667 mls/hr IVPB Q48H [facility] Last Admin: 10/25/16 11:01 Dose: 166.667 mls/hr Insulin Human Regular (Humulin R) 0 units SC ACCU-CHECK [facility] PRN Reason: Protocol Last Admin: 10/26/16 06:36 Dose: 3 u Lorazepam (Ativan) 0.5 mg IVP Q4 PRN PRN Reason: Anxiety Last Admin: 10/25/16 12:29 Dose: 0.5 mg Morphine Sulfate (Morphine) 1 mg IVP Q3 PRN PRN Reason: Pain, severe (8-10) Last Admin: 10/23/16 11:32 Dose: 1 mg Pantoprazole Sodium (Protonix Inj) 40 mg IVP DAILY [facility] Last Admin: 10/26/16 08:16 Dose: 40 mg Potassium Chloride (Potassium Chloride Oral Soln) 20 meq GT ONCE ONE Stop: 10/26/16 09:29 - Labs Labs: 10/26/16 04:35 10/26/16 04:35 PT 13.6 SECONDS (9.6-11.2) H 10/22/16 06:00 INR 1.31 (0.92-1.08) H 10/22/16 06:00 APTT 33.1 SECONDS (23.3-32.5) H 10/22/16 06:00
--- NOTE | 2016-10-26 11:24 | CP.PCM.PN ---
Subjective - Date & Time of Evaluation Date of Evaluation: 10/26/16 Time of Evaluation: 11:20 - Subjective Subjective: pt seen and examined, follow up consult is dictated #[id number] 1.hypernatremia 2. hypokalemia 3.cardiomayopathy 3.VERITO, improving continue iv abx check cxr to r/o chf agree with k+ supplement start free water 200 ml q 3 hrs Objective - Vital Signs/Intake and Output Vital Signs (last 24 hours): Temp Pulse Resp BP Pulse Ox 98.4 F 90 20 156/55 H 97 10/26/16 08:00 10/26/16 08:00 10/26/16 08:29 10/26/16 08:00 10/26/16 08:00 Intake and Output: 10/26/16 10/26/16 06:59 18:59 Intake Total 450 33 Output Total 2400 Balance -1949 33 - Medications Medications: Current Medications Acetaminophen (Tylenol 650 Mg Supp) 650 mg MI Q6 PRN PRN Reason: Fever >100.4 F Last Admin: 10/24/16 16:07 Dose: 650 mg Albuterol/Ipratropium (Duoneb 3 Mg/0.5 Mg (3 Ml) Ud) 3 ml INH RQID [facility] Last Admin: 10/26/16 08:28 Dose: 3 ml Amiodarone HCl (Cordarone) 100 mg GT Q12H [facility] Heparin Sodium (Porcine) (Heparin) 5,000 units SC Q12 [facility] PRN Reason: Protocol Last Admin: 10/26/16 08:15 Dose: 5,000 units Aztreonam 1 gm/ Sodium (Chloride) 100 mls @ 100 mls/hr IVPB Q12 [facility] Last Admin: 10/26/16 08:14 Dose: 100 mls/hr Ciprofloxacin (Cipro 400mg/200ml Dsw) 200 mls @ 200 mls/hr IVPB DAILY [facility] Last Admin: 10/26/16 08:44 Dose: 200 mls/hr Vancomycin HCl 1 gm/ Sodium (Chloride) 250 mls @ 166.667 mls/hr IVPB Q48H [facility] Last Admin: 10/25/16 11:01 Dose: 166.667 mls/hr Insulin Human Regular (Humulin R) 0 units SC ACCU-CHECK [facility] PRN Reason: Protocol Last Admin: 10/26/16 06:36 Dose: 3 u Lorazepam (Ativan) 0.5 mg IVP Q4 PRN PRN Reason: Anxiety Last Admin: 10/25/16 12:29 Dose: 0.5 mg Morphine Sulfate (Morphine) 1 mg IVP Q3 PRN PRN Reason: Pain, severe (8-10) Last Admin: 10/23/16 11:32 Dose: 1 mg Pantoprazole Sodium (Protonix Inj) 40 mg IVP DAILY [facility] Last Admin: 10/26/16 08:16 Dose: 40 mg - Labs Labs: 10/26/16 04:35 10/26/16 04:35 PT 13.6 SECONDS (9.6-11.2) H 10/22/16 06:00 INR 1.31 (0.92-1.08) H 10/22/16 06:00 APTT 33.1 SECONDS (23.3-32.5) H 10/22/16 06:00
--- NOTE | 2016-10-26 12:10 | RAD ---
HISTORY: r/o chf r/o pneumonia COMPARISON: 10/23/2016 FINDINGS: LUNGS: Infiltrate/ atelectasis at both lung bases, right greater than left. . PLEURA: Small bilateral pleural effusions, right greater than left. No pneumothorax. Likely fluid within a fissure on right side. CARDIOVASCULAR: Cardiomegaly. Right IJ central venous catheter unchanged in position. OSSEOUS STRUCTURES: No significant abnormalities. VISUALIZED UPPER ABDOMEN: Normal. OTHER FINDINGS: None. IMPRESSION: Small bilateral pleural effusion, right greater than left. Infiltrate/atelectasis at both lung bases, right greater left.
--- NOTE | 2016-10-26 13:00 | CP.PCM.PN ---
Subjective - Date & Time of Evaluation Date of Evaluation: 10/26/16 - Subjective Subjective: F/U Acute respiratory failure Unable to awake Pt at times, purposeless movements upper extremities. Attempt to insert NGT today. Objective - Vital Signs/Intake and Output Vital Signs (last 24 hours): Temp Pulse Resp BP Pulse Ox 98.8 F 102 H 16 161/51 H 95 10/26/16 11:57 10/26/16 11:57 10/26/16 11:57 10/26/16 11:57 10/26/16 11:57 Intake and Output: 10/26/16 10/26/16 06:59 18:59 Intake Total 450 243 Output Total 2400 Balance -1950 243 - Medications Medications: Current Medications Acetaminophen (Tylenol 650 Mg Supp) 650 mg [place] Q6 PRN PRN Reason: Fever >100.4 F Last Admin: 10/24/16 16:07 Dose: 650 mg Albuterol/Ipratropium (Duoneb 3 Mg/0.5 Mg (3 Ml) Ud) 3 ml INH RQID [facility] Last Admin: 10/26/16 12:02 Dose: 3 ml Amiodarone HCl (Cordarone) 100 mg GT Q12H [facility] Heparin Sodium (Porcine) (Heparin) 5,000 units SC Q12 [facility] PRN Reason: Protocol Last Admin: 10/26/16 08:15 Dose: 5,000 units Aztreonam 1 gm/ Sodium (Chloride) 100 mls @ 100 mls/hr IVPB Q12 [facility] Last Admin: 10/26/16 08:14 Dose: 100 mls/hr Ciprofloxacin (Cipro 400mg/200ml Dsw) 200 mls @ 200 mls/hr IVPB DAILY [facility] Last Admin: 10/26/16 08:44 Dose: 200 mls/hr Vancomycin HCl 1 gm/ Sodium (Chloride) 250 mls @ 166.667 mls/hr IVPB Q48H [facility] Last Admin: 10/25/16 11:01 Dose: 166.667 mls/hr Insulin Human Regular (Humulin R) 0 units SC ACCU-CHECK [facility] PRN Reason: Protocol Last Admin: 10/26/16 12:38 Dose: 2 u Lorazepam (Ativan) 0.5 mg IVP Q4 PRN PRN Reason: Anxiety Last Admin: 10/25/16 12:29 Dose: 0.5 mg Morphine Sulfate (Morphine) 1 mg IVP Q3 PRN PRN Reason: Pain, severe (8-10) Last Admin: 10/23/16 11:32 Dose: 1 mg Pantoprazole Sodium (Protonix Inj) 40 mg IVP DAILY [facility] Last Admin: 10/26/16 08:16 Dose: 40 mg - Labs Labs: 10/26/16 04:35 10/26/16 04:35 PT 13.6 SECONDS (9.6-11.2) H 10/22/16 06:00 INR 1.31 (0.92-1.08) H 10/22/16 06:00 APTT 33.1 SECONDS (23.3-32.5) H 10/22/16 06:00 - Constitutional Appears: No Acute Distress, Chronically Ill - Head Exam Head Exam: NORMAL INSPECTION - Eye Exam Eye Exam: PERRL - ENT Exam Additional comments: On BIPAP - Neck Exam Neck Exam: Normal Inspection - Respiratory Exam Respiratory Exam: Decreased Breath Sounds, Wheezes (few scattered) - Cardiovascular Exam Cardiovascular Exam: Tachycardia, Irregular Rhythm - GI/Abdominal Exam GI & Abdominal Exam: Distended (mild), Soft - Extremities Exam Extremities Exam: Pedal Edema - Back Exam Additional comments: Healed Sacral ulcer. Ulcer R buttock - Neurological Exam Neurological Exam: Awake Additional comments: No gross motor deficit - Psychiatric Exam Psychiatric exam: Anxious - Skin Skin Exam: Normal Color, Warm Assessment and Plan (1) Acute respiratory failure Status: Acute (2) Pneumonia Status: Acute (3) Septic shock Status: Acute (4) Abdominal pain Status: Acute (5) Uncontrolled diabetes mellitus Status: Acute (6) Acute renal failure (ARF) Status: Acute (7) A-fib Status: Acute - Assessment and Plan (Free Text) Plan: Continue current Tx. ICU TIME: 40 MIN.
--- NOTE | 2016-10-26 14:17 | CP.CCUPN ---
CCU Subjective - Physician Review Events Since Last Encounter (Free Text): 10/26/16 14:17 patient seen and examined in the morning. Not doing well, mental status worsening, now she moves the arms with out a purpose. On high flow nasal cannula , receiving 40 L and 60%, saturating 99%, able to decrease to to 20L with 95% saturation. pe: bp 161/51 mmhg, hr 102 bpm, rr 16 bpm, T 98.8 T, O2 95 F awake, not alert, not oriented s1, s2 rr lungs good bilateral air of entry, deminished abdomen soft, non tender mild generalized edema a/p: acute respiratory failure: large right pleural effusions: need CT scan for better imaging, Acute renal failure: back to normal sepsis: continue aztreonam, ciprofloxacin and vancomycin dm: bs wnl CCU Objective - Vital Signs / Intake & Output Vital Signs (Last 4 hours): Vital Signs Temp Pulse Resp BP Pulse Ox 10/26/16 11:57 98.8 F 102 H 16 161/51 H 95 10/26/16 11:27 12 Intake and Output (Last 8hrs): Intake & Output 10/25/16 10/26/16 10/26/16 22:59 06:59 14:59 Intake Total 250 266 243 Output Total 1800 2400 Balance -1550 -2134 243 Weight 164 lb 153 lb Intake: IV 150 266 43 Intake, Piggyback 100 200 Oral 0 0 Output: Urine 1800 2400 Urethral ([place]) 1800 2400 Other: # Voids Urethral ([place]) 0 # Bowel Movements 1 - Physical Exam Head: Positive for: Atraumatic, Normocephalic Pupils: Positive for: PERRL Extroacular Muscles: Positive for: EOMI Conjunctiva: Positive for: Normal. Negative for: Injected, Icteric Neck: Positive for: Normal Range of Motion, Trachea Midline. Negative for: Meningeal Signs, MIDLINE TENDERNESS, Paraspinal Tenderness, JVD, Lymphadenopathy , Bruit, Other Respiratory/Chest: Positive for: Decreased Breath Sounds, Rales, Rhonchi, Tachypneic. Negative for: Clear to Auscultation, Respiratory Distress, Wheezes , Retracting, Tender to Palpation Cardiovascular: Positive for: Irregular Rhythm, Peripheal Pulses Present, Tachycardic. Negative for: Regular Rate and Rhythm, Murmurs Abdomen: Positive for: Normal Bowel Sounds. Negative for: Tenderness, Distention, Peritoneal Signs Upper Extremity: Positive for: Normal Inspection, Edema, NORMAL PULSES, Capillary Refill < 2s Lower Extremity: Positive for: Edema, NORMAL PULSES, Capillary Refill < 2 s. Negative for: CALF TENDERNESS Neurological: Positive for: Motor Func Grossly Intact Psychiatric: Positive for: Alert, Anxious, Agitated - Medications Active Medications: Active Medications Generic Name Dose Route Start Last Admin Trade Name Freq PRN Reason Stop Dose Admin Acetaminophen 650 mg 10/22/16 05:22 10/24/16 16:07 Tylenol 650 Mg Supp NM 650 mg Q6 PRN Administration Fever >100.4 F Albuterol/Ipratropium 3 ml 10/21/16 20:00 10/26/16 12:02 Duoneb 3 Mg/0.5 Mg (3 Ml) Ud INH 3 ml RQID [facility] Administration Amiodarone HCl 100 mg 10/26/16 10:15 Cordarone GT Q12H [facility] Heparin Sodium (Porcine) 5,000 units 10/21/16 21:00 10/26/16 08:15 Heparin SC 5,000 units Q12 [facility] Administration Protocol Aztreonam 1 gm/ Sodium 100 mls @ 100 mls/hr 10/21/16 21:00 10/26/16 08:14 Chloride IVPB 100 mls/hr Q12 [facility] Administration Ciprofloxacin 200 mls @ 200 mls/hr 10/22/16 09:00 10/26/16 08:44 Cipro 400mg/200ml Dsw IVPB 200 mls/hr DAILY [facility] Administration Vancomycin HCl 1 gm/ Sodium 250 mls @ 166.667 mls/hr 10/23/16 10:00 10/25/16 11 :01 Chloride IVPB 166.667 mls/hr Q48H [facility] Administration Insulin Human Regular 0 units 10/21/16 23:00 10/26/16 12:38 Humulin R SC 2 u ACCU-CHECK [facility] Administration Protocol Lorazepam 0.5 mg 10/22/16 22:38 10/25/16 12:29 Ativan IVP 0.5 mg Q4 PRN Administration Anxiety Morphine Sulfate 1 mg 10/22/16 22:37 10/23/16 11:32 Morphine IVP 1 mg Q3 PRN Administration Pain, severe (8-10) Pantoprazole Sodium 40 mg 10/22/16 09:00 10/26/16 08:16 Protonix Inj IVP 40 mg DAILY [facility] Administration - Patient Studies Lab Studies: Microbiology Studies 10/21/16 23:44 Blood Culture - Preliminary Blood NO GROWTH AFTER 4 DAYS Lab Studies 10/26/16 10/26/16 10/26/16 Range/Units 10:43 05:01 04:35 WBC 7.1 (4.8-10.8) K/uL RBC 3.54 L (3.80-5.20) Mil/uL Hgb 9.6 L (12.0-16.0) g/dL Hct 30.1 L (34.0-47.0) % MCV 85.0 (81.0-99.0) fl MCH 27.2 (27.0-31.0) pg MCHC 32.0 L (33.0-37.0) g/dL RDW 16.4 H (11.5-14.5) % Plt Count 234 (130-400) K/uL Sodium 152 H (132-148) mmol/l Potassium 3.5 L (3.6-5.0) MMOL/L Chloride 104 (98-107) mmol/L Carbon Dioxide 30 (22-30) mmol/L Anion Gap 22 H (10-20) BUN 53 H (7-17) mg/dl Creatinine 1.1 (0.7-1.2) mg/dL Est GFR ( Amer) 57 Est GFR (Non-Af Amer) 47 POC Glucose (mg/dL) 238 H 262 H (65-110) mg/dL Random Glucose 275 H (65-105) mg/dL Calcium 9.3 (8.4-10.2) mg/dL C. difficile Ag & Toxin (NEGATIVE) Urine Legionella Ag (Not Detected) 10/26/16 10/25/16 10/25/16 Range/Units 01:58 22:10 16:35 WBC (4.8-10.8) K/uL RBC (3.80-5.20) Mil/uL Hgb (12.0-16.0) g/dL Hct (34.0-47.0) % MCV (81.0-99.0) fl MCH (27.0-31.0) pg MCHC (33.0-37.0) g/dL RDW (11.5-14.5) % Plt Count (130-400) K/uL Sodium (132-148) mmol/l Potassium (3.6-5.0) MMOL/L Chloride (98-107) mmol/L Carbon Dioxide (22-30) mmol/L Anion Gap (10-20) BUN (7-17) mg/dl Creatinine (0.7-1.2) mg/dL Est GFR ( Amer) Est GFR (Non-Af Amer) POC Glucose (mg/dL) 275 H 281 H (65-110) mg/dL Random Glucose (65-105) mg/dL Calcium (8.4-10.2) mg/dL C. difficile Ag & Toxin Negative (NEGATIVE) Urine Legionella Ag (Not Detected) 10/24/16 Range/Units 14:00 WBC (4.8-10.8) K/uL RBC (3.80-5.20) Mil/uL Hgb (12.0-16.0) g/dL Hct (34.0-47.0) % MCV (81.0-99.0) fl MCH (27.0-31.0) pg MCHC (33.0-37.0) g/dL RDW (11.5-14.5) % Plt Count (130-400) K/uL Sodium (132-148) mmol/l Potassium (3.6-5.0) MMOL/L Chloride (98-107) mmol/L Carbon Dioxide (22-30) mmol/L Anion Gap (10-20) BUN (7-17) mg/dl Creatinine (0.7-1.2) mg/dL Est GFR ( Amer) Est GFR (Non-Af Amer) POC Glucose (mg/dL) (65-110) mg/dL Random Glucose (65-105) mg/dL Calcium (8.4-10.2) mg/dL C. difficile Ag & Toxin (NEGATIVE) Urine Legionella Ag Not detected (Not Detected) Laboratory Results - last 24 hr 10/24/16 10/25/16 10/25/16 14:00 16:35 22:10 WBC RBC Hgb Hct MCV MCH MCHC RDW Plt Count Sodium Potassium Chloride Carbon Dioxide Anion Gap BUN Creatinine Est GFR ( Amer) Est GFR (Non-Af Amer) POC Glucose (mg/dL) 281 H 275 H Random Glucose Calcium C. difficile Ag & Toxin Urine Legionella Ag Not detected 10/26/16 10/26/16 10/26/16 01:58 04:35 05:01 WBC 7.1 RBC 3.54 L Hgb 9.6 L Hct 30.1 L MCV 85.0 MCH 27.2 MCHC 32.0 L RDW 16.4 H Plt Count 234 Sodium 152 H Potassium 3.5 L Chloride 104 Carbon Dioxide 30 Anion Gap 22 H BUN 53 H Creatinine 1.1 Est GFR ( Amer) 57 Est GFR (Non-Af Amer) 47 POC Glucose (mg/dL) 262 H Random Glucose 275 H Calcium 9.3 C. difficile Ag & Toxin Negative Urine Legionella Ag 10/26/16 10:43 WBC RBC Hgb Hct MCV MCH MCHC RDW Plt Count Sodium Potassium Chloride Carbon Dioxide Anion Gap BUN Creatinine Est GFR ( Amer) Est GFR (Non-Af Amer) POC Glucose (mg/dL) 238 H Random Glucose Calcium C. difficile Ag & Toxin Urine Legionella Ag EKG/Cardiology Studies: Cardiology / EKG Studies 10/26/16 EKG [ELECTROCARDIOGRAM] Routine Comment: Mode Of Transportation: PORTABLE Reason For Exam: A Fib Isolation: Special Contact Fingerstick Blood Sugar Results: 238 Critical Care Progress Note - Nutrition Nutrition: Nutrition Category Date Time Status NPO Diet [DIET] Diets 10/22/16 Breakfast Active
--- NOTE | 2016-10-27 01:06 | PN ---
DATE: 10/26/2016 The patient is located in room 432, bed 1. REQUESTING PHYSICIAN: Dr. Augie Gil. REASON FOR FOLLOWUP: Acute renal failure, pneumonia. HISTORY OF PRESENT ILLNESS: The patient is an 86-year-old elderly female with a past medica l history significant for hypertension, diabetes, hyperlipidemia, asthma, arthritis, AFib, resident o longterm, was admitted with shortness of breath. The patient is being treated for pneumonia an d sepsis. Initially, the patient was hypotensive on pressors. The patient is off pressors and the p atient was started on gentle IV hydration. The patient was short of breath and started on IV Lasix y . The patient has a good diuresis, 24-hour urine output is about 4200 mL yesterday and this morning the patient had 1200 mL of urine output. The patient is very drowsy, not responding to verbal stimuli, not in distress, on nasal cannula. PHYSICAL EXAMINATION: VITAL SIGNS: This morning as follows: Blood pressure 156/55, pulse 90, respirations about 27, tempe rature 98.4, saturation 97%, height 5 feet and weight is 153 pounds. GENERAL: The patient is an 86-year-old elderly female, moderately built, moderately nourished, not i n acute distress. HEENT: Pupils normal reactive to light and accommodation. Conjunctivae pink. Sclerae anicteric. NECK: No thyroid enlargement. LUNGS: Symmetric on both sides. Bilateral breath sounds present. No crackles. CARDIOVASCULAR: [place] at the sixth intercostal space midclavicular line. S1 and S2 audible. No murm ur or gallop. ABDOMEN: Normal in appearance, soft, tympanic. No guarding, no rigidity. No hepatosplenomegaly. CENTRAL NERVOUS SYSTEM: The patient is very drowsy, not responding to verbal stimuli, moving all ext remities. CURRENT MEDICATIONS: Include as follows Ativan 0.5 mg IV q. 4 hours, ciprofloxacin 400 mg IV daily, amiodarone 100 mg q. 12 hours, DuoNeb inhaler 3 mL q. 8, albuterol, ipratropium bromide, subQ heparin 5000 q. 12 hours, Lasix 40 mg x 1 dose given yesterday, Protonix 40 mg IV daily, Tylenol, and vancom ycin 1 gram q. 48 hours. LABORATORY DATA: Include as follows: As of 10/26/2016. WBC 7.1, hemoglobin 9.6, hematocrit is 30.1 , platelets 234. Sodium 152, potassium 3.5, chloride 104, CO2 of 30, BUN 53, creatinine 1.1, glucose 275, calcium 9.3. Stool for occult blood was negative and stool for C. diff toxin was negative. I's and O's as of 10/26/2016: Intake is 1459 and output is 4200, negative 2741. SUMMARY: The patient is 86-year-old elderly female with a history of hypertension, diabetes , hyperlipidemia, asthma, arthritis, cardiomyopathy is being treated for pneumonia and sepsis with ac [place] renal failure. 1. Acute renal failure, most likely secondary to acute tubular necrosis and hypotension, now renal f unction is improving and picture consistent with prerenal azotemia. 2. Cardiomyopathy. 3. Pneumonia. 4. Congestive heart failure. 5. Hypokalemia. 6. Hypernatremia secondary to vigorous diuresis. 7. Metabolic alkalosis secondary to vigorous diuresis. PLAN: We will start free water 200 mL q. 3 hours by NG tube and repeat BMP in a.m. and I agree with potassium supplement. Follow BMP in a.m. We will follow with you. Thank you for allowing me to participate in your patient's care. Case discussed with Dr. Gil in ro unds. Gurjit Comer MD cc: [id number] TT: 10/27/2016 01:05:45 Confirmation # [id number] Dictation # [id number] in
[2016-10-27] MEDS: Insulin Regular 100 units/ml SC SCH ×4 (06:11→22:56)
[2016-10-27 07:45] LABS: CALCIUM 9.3 mg/dL (8.4-10.2)
[2016-10-27 08:03] LABS: POTASSIUM 2.8 MMOL/L (3.6-5.0)
[2016-10-27] MEDS: Ciprofloxacin 400mg/200ml D5W 200 ML IVPB SCH (08:33)
[2016-10-27] MEDS: Albuterol-Ipratrop 3 mg / 0.5 (3 ml) UD INH SCH ×3 (08:34→19:24)
--- NOTE | 2016-10-27 13:40 | CT ---
PROCEDURE: CT Chest without contrast HISTORY: Pneumonia COMPARISON: 10/21/2016. CT abdomen pelvis including lower lung jaquez. Multiple serial examinations preceding the most recent study: October 26, 2016. Chest x-rays. TECHNIQUE: Contiguous axial images were obtained through the chest without intravenous contrast enhancement. Sagittal and coronal reconstructions were performed. Radiation dose (DLP): 90. CVD can mGy-cm. FINDINGS: LUNGS: Bilateral lower lobe infiltrates. These are progressive compared to comparable anatomic areas on the prior CT scan 10/21/2016. The changes are approximately symmetrical. The overall appearance and distribution suggests aspiration pneumonia. MEDIASTINUM: Unremarkable thoracic aorta. No aneurysm. Cardiomegaly. No evidence of acute, significant cardiovascular disease. Main pulmonary artery unremarkable. No vascular congestion. No lymphadenopathy. PLEURA: No pleural fluid. No pneumothorax. BONES: No fracture. No destructive lesion. UPPER ABDOMEN: Nasogastric tube courses through the esophagus into a decompressed stomach, the tip however is not seen. OTHER FINDINGS: None. IMPRESSION: Progressive lower lobe infiltrates the overall appearance and distribution suggests aspiration pneumonia. No significant pleural effusions.
[2016-10-27] MEDS: Potassium Chloride 20 mEq/15 ml LIQ UD PO SCH ×2 (14:04→17:40)
--- NOTE | 2016-10-27 14:26 | CP.CCUPN ---
CCU Subjective - Physician Review Events Since Last Encounter (Free Text): 10/27/16 14:20 patient seen and examined in the morning. Same mental status than yesterday, delirious form overall disease. Has not been at home for th past 8 weeks (since previous hospitalization she went to a rehabilitation facility, but has not walked since then). pe: bp 156/39 mmhg, hr 103 bpm, rr 16 bpm, T 96 T, O2 95% on 25 L, 50% fio2 awake, not alert, not oriented s1, s2 rr lungs good bilateral air of entry, diminished, conducted sounds abdomen soft, non tender mild generalized edema a/p: acute respiratory failure: CT scan showing bilateral infiltrates, minimal effussion, no elevated wbc count encephalopathy from overall disease Acute renal failure: back to normal sepsis: continue aztreonam, ciprofloxacin and vancomycin dm: bs wnl CCU Objective - Vital Signs / Intake & Output Vital Signs (Last 4 hours): Vital Signs Temp Pulse Resp BP Pulse Ox 10/27/16 12:00 99.6 F 103 H 20 156/39 H 96 10/27/16 11:32 33 H Intake and Output (Last 8hrs): Intake & Output 10/26/16 10/27/16 10/27/16 22:59 06:59 14:59 Intake Total 622 716 550 Output Total 4300 1250 Balance -3678 -534 550 Intake: IV 22 16 Intake, Piggyback 100 100 350 Tube Feeding 300 Free Water Flush 200 600 200 Output: Urine 4300 1250 Urethral ([place]) 4300 1250 Other: # Bowel Movements 1 - Physical Exam Head: Positive for: Atraumatic, Normocephalic Pupils: Positive for: PERRL Extroacular Muscles: Positive for: EOMI Conjunctiva: Positive for: Normal. Negative for: Injected, Icteric Neck: Positive for: Normal Range of Motion, Trachea Midline. Negative for: Meningeal Signs, MIDLINE TENDERNESS, Paraspinal Tenderness, JVD, Lymphadenopathy , Bruit, Other Respiratory/Chest: Positive for: Decreased Breath Sounds, Rales, Rhonchi, Tachypneic. Negative for: Clear to Auscultation, Respiratory Distress, Wheezes , Retracting, Tender to Palpation Cardiovascular: Positive for: Irregular Rhythm, Peripheal Pulses Present, Tachycardic. Negative for: Regular Rate and Rhythm, Murmurs Abdomen: Positive for: Normal Bowel Sounds. Negative for: Tenderness, Distention, Peritoneal Signs Upper Extremity: Positive for: Normal Inspection, Edema, NORMAL PULSES, Capillary Refill < 2s Lower Extremity: Positive for: Edema, NORMAL PULSES, Capillary Refill < 2 s. Negative for: CALF TENDERNESS Neurological: Positive for: Motor Func Grossly Intact Psychiatric: Positive for: Alert, Anxious, Agitated - Medications Active Medications: Active Medications Generic Name Dose Route Start Last Admin Trade Name Freq PRN Reason Stop Dose Admin Acetaminophen 650 mg 10/22/16 05:22 10/27/16 08:35 Tylenol 650 Mg Supp NE 650 mg Q6 PRN Administration Fever >100.4 F Albuterol/Ipratropium 3 ml 10/21/16 20:00 10/27/16 08:34 Duoneb 3 Mg/0.5 Mg (3 Ml) Ud INH 3 ml RQID [facility] Administration Amiodarone HCl 100 mg 10/26/16 10:15 10/27/16 09:12 Cordarone GT 100 mg Q12H [facility] Administration Heparin Sodium (Porcine) 5,000 units 10/21/16 21:00 10/27/16 08:35 Heparin SC 5,000 units Q12 [facility] Administration Protocol Ciprofloxacin 200 mls @ 200 mls/hr 10/22/16 09:00 10/27/16 08:33 Cipro 400mg/200ml Dsw IVPB 200 mls/hr DAILY [facility] Administration Vancomycin HCl 1 gm/ Sodium 250 mls @ 166.667 mls/hr 10/23/16 10:00 10/27/16 09 :11 Chloride IVPB 166.667 mls/hr Q48H [facility] Administration Insulin Human Regular 0 units 10/21/16 23:00 10/27/16 12:18 Humulin R SC 4 u ACCU-CHECK [facility] Administration Protocol Morphine Sulfate 1 mg 10/22/16 22:37 10/27/16 08:45 Morphine IVP 1 mg Q3 PRN Administration Pain, severe (8-10) Pantoprazole Sodium 40 mg 10/22/16 09:00 10/27/16 08:35 Protonix Inj IVP 40 mg DAILY [facility] Administration Potassium Chloride 40 meq 10/27/16 11:00 Potassium Chloride Oral Soln PO 10/27/16 15:01 Q4H [facility] - Patient Studies Lab Studies: Microbiology Studies 10/21/16 23:44 Blood Culture - Final Blood NO GROWTH AFTER 5 DAYS Gram Stain - Final TEST NOT PERFORMED Lab Studies 10/27/16 10/27/16 10/27/16 Range/Units 12:12 06:55 05:51 Sodium 153 H (132-148) mmol/l Potassium 2.8 L (3.6-5.0) MMOL/L Chloride 104 (98-107) mmol/L Carbon Dioxide 30 (22-30) mmol/L Anion Gap 22 H (10-20) BUN 39 H (7-17) mg/dl Creatinine 1.1 (0.7-1.2) mg/dL Est GFR ( Amer) 57 Est GFR (Non-Af Amer) 47 POC Glucose (mg/dL) 321 H 275 H (65-110) mg/dL Random Glucose 300 H (65-105) mg/dL Calcium 9.3 (8.4-10.2) mg/dL Stool Occult Blood (NEGATIVE) 10/26/16 10/26/16 10/26/16 Range/Units 21:39 16:23 01:58 Sodium (132-148) mmol/l Potassium (3.6-5.0) MMOL/L Chloride (98-107) mmol/L Carbon Dioxide (22-30) mmol/L Anion Gap (10-20) BUN (7-17) mg/dl Creatinine (0.7-1.2) mg/dL Est GFR ( Amer) Est GFR (Non-Af Amer) POC Glucose (mg/dL) 254 H 228 H (65-110) mg/dL Random Glucose (65-105) mg/dL Calcium (8.4-10.2) mg/dL Stool Occult Blood Negative (NEGATIVE) Laboratory Results - last 24 hr 10/26/16 10/26/16 10/26/16 01:58 16:23 21:39 Sodium Potassium Chloride Carbon Dioxide Anion Gap BUN Creatinine Est GFR ( Amer) Est GFR (Non-Af Amer) POC Glucose (mg/dL) 228 H 254 H Random Glucose Calcium Stool Occult Blood Negative 10/27/16 10/27/16 10/27/16 05:51 06:55 12:12 Sodium 153 H Potassium 2.8 L Chloride 104 Carbon Dioxide 30 Anion Gap 22 H BUN 39 H Creatinine 1.1 Est GFR ( Amer) 57 Est GFR (Non-Af Amer) 47 POC Glucose (mg/dL) 275 H 321 H Random Glucose 300 H Calcium 9.3 Stool Occult Blood Fingerstick Blood Sugar Results: 361
--- NOTE | 2016-10-27 15:04 | CP.PCM.PN ---
Subjective - Date & Time of Evaluation Date of Evaluation: 10/27/16 - Subjective Subjective: F/U Acute respiratory failure Pt with minimal response to tactile stimuli, Pt is DNR, DNI. Objective - Vital Signs/Intake and Output Vital Signs (last 24 hours): Temp Pulse Resp BP Pulse Ox 99.6 F 106 H 21 144/60 92 L 10/27/16 12:00 10/27/16 14:00 10/27/16 14:00 10/27/16 14:00 10/27/16 14:00 Intake and Output: 10/27/16 10/27/16 06:59 18:59 Intake Total 1028 550 Output Total 4050 Balance -3022 550 - Medications Medications: Current Medications Acetaminophen (Tylenol 650 Mg Supp) 650 mg VT Q6 PRN PRN Reason: Fever >100.4 F Last Admin: 10/27/16 08:35 Dose: 650 mg Albuterol/Ipratropium (Duoneb 3 Mg/0.5 Mg (3 Ml) Ud) 3 ml INH RQID [facility] Last Admin: 10/27/16 08:34 Dose: 3 ml Amiodarone HCl (Cordarone) 100 mg GT Q12H [facility] Last Admin: 10/27/16 09:12 Dose: 100 mg Heparin Sodium (Porcine) (Heparin) 5,000 units SC Q12 [facility] PRN Reason: Protocol Last Admin: 10/27/16 08:35 Dose: 5,000 units Ciprofloxacin (Cipro 400mg/200ml Dsw) 200 mls @ 200 mls/hr IVPB DAILY [facility] Last Admin: 10/27/16 08:33 Dose: 200 mls/hr Vancomycin HCl 1 gm/ Sodium (Chloride) 250 mls @ 166.667 mls/hr IVPB Q48H [facility] Last Admin: 10/27/16 09:11 Dose: 166.667 mls/hr Insulin Human Regular (Humulin R) 0 units SC ACCU-CHECK [facility]ERA PRN Reason: Protocol Last Admin: 10/27/16 12:18 Dose: 4 u Morphine Sulfate (Morphine) 1 mg IVP Q3 PRN PRN Reason: Pain, severe (8-10) Last Admin: 10/27/16 14:05 Dose: 1 mg Pantoprazole Sodium (Protonix Inj) 40 mg IVP DAILY [facility] Last Admin: 10/27/16 08:35 Dose: 40 mg - Labs Labs: 10/26/16 04:35 10/27/16 06:55 PT 13.6 SECONDS (9.6-11.2) H 10/22/16 06:00 INR 1.31 (0.92-1.08) H 10/22/16 06:00 APTT 33.1 SECONDS (23.3-32.5) H 10/22/16 06:00 - Constitutional Appears: No Acute Distress, Chronically Ill - Head Exam Head Exam: NORMAL INSPECTION - Eye Exam Eye Exam: PERRL - ENT Exam Additional comments: NGT - Neck Exam Neck Exam: Normal Inspection - Respiratory Exam Respiratory Exam: Decreased Breath Sounds, Rhonchi (few scattered), Wheezes - Cardiovascular Exam Cardiovascular Exam: Irregular Rhythm - GI/Abdominal Exam GI & Abdominal Exam: Distended (mild) - Extremities Exam Extremities Exam: Pedal Edema - Back Exam Additional comments: healed sacral ulcer, ulcer R buttock - Neurological Exam Additional comments: minimal response to tactile stimuli. - Psychiatric Exam Psychiatric exam: Flat Affect - Skin Skin Exam: Warm Assessment and Plan (1) Acute respiratory failure Status: Acute (2) Pneumonia Status: Acute (3) Septic shock Status: Acute (4) Abdominal pain Status: Acute (5) Uncontrolled diabetes mellitus Status: Acute (6) Acute renal failure (ARF) Status: Acute (7) A-fib Status: Acute - Assessment and Plan (Free Text) Plan: CT Chest today for PNA, continue current tx. ICU TIME: 40 MIN.
[2016-10-27] MEDS: Metoprolol Succinate 25 mg XL Tab PO SCH (16:15)
[2016-10-27] MEDS ORDERED: Metoprolol 1 mg/ml Inj IVP ONE (16:30)
[2016-10-27 17:13] LABS: POTASSIUM 3.5 MMOL/L (3.6-5.0)
[2016-10-27] MEDS: Acetaminophen 650mg/20.3ml solution UD PO PRN (17:41)
--- NOTE | 2016-10-27 19:01 | CARD ---
APPROVED REPORT EKG Measurement Heart [id number] <Conclusion> Sinus rhythm with premature atrial complexes Left ventricular hypertrophy with repolarization abnormality Prolonged QT Abnormal ECG
[2016-10-27] MEDS ORDERED: Insulin Regular 100 units/ml SC STA (22:26)
[2016-10-28 05:24] LABS: CALCIUM 9.2 mg/dL (8.4-10.2); POTASSIUM 3.7 MMOL/L (3.6-5.0)
[2016-10-28 05:34] LABS: HEMATOCRIT 31.2 % (34.0-47.0); MEAN CELL VOLUME 84.6 fl (81.0-99.0); MEAN CORPUSCULAR HEMOGLOBIN 26.4 pg (27.0-31.0); MEAN CORPUSCULAR HGB CONC 31.1 g/dL (33.0-37.0); WHITE BLOOD COUNT 9.9 K/uL (4.8-10.8)
[2016-10-28] MEDS: Insulin Regular 100 units/ml SC SCH ×4 (06:04→22:26)
[2016-10-28] MEDS: Albuterol-Ipratrop 3 mg / 0.5 (3 ml) UD INH SCH ×4 (07:35→19:32)
[2016-10-28] MEDS: Acetaminophen 650mg/20.3ml solution UD PO PRN ×3 (07:44→19:40)
[2016-10-28] MEDS: Ciprofloxacin 400mg/200ml D5W 200 ML IVPB SCH (08:21)
[2016-10-28] MEDS: Metoprolol Succinate 25 mg XL Tab PO SCH (08:24)
--- NOTE | 2016-10-28 12:47 | CP.CCUPN ---
CCU Subjective - Physician Review Subjective (Free Text): 10/28/16 12:42 patient is responsive to painful stimuli, not responsive to commands. CCU Objective - Vital Signs / Intake & Output Vital Signs (Last 4 hours): Vital Signs Temp Pulse Resp BP Pulse Ox 10/28/16 12:00 99.9 F H 93 H 23 121/47 L 95 10/28/16 11:07 18 10/28/16 10:00 92 H 24 131/62 94 L Intake and Output (Last 8hrs): Intake & Output 10/27/16 10/28/16 10/28/16 22:59 06:59 14:59 Intake Total 1050 920 600 Output Total 700 700 Balance 350 220 600 Intake: IV 60 480 Intake, Piggyback 200 Tube Feeding 390 240 Free Water Flush 600 200 400 Output: Urine 700 700 Urethral ([place]) 700 700 Other: # Bowel Movements 0 - Physical Exam Head: Positive for: Atraumatic, Normocephalic Pupils: Positive for: PERRL Extroacular Muscles: Positive for: EOMI Conjunctiva: Positive for: Normal. Negative for: Injected, Icteric Neck: Positive for: Normal Range of Motion, Trachea Midline. Negative for: Meningeal Signs, MIDLINE TENDERNESS, Paraspinal Tenderness, JVD, Lymphadenopathy , Bruit, Other Respiratory/Chest: Positive for: Decreased Breath Sounds, Rales, Rhonchi, Tachypneic. Negative for: Clear to Auscultation, Respiratory Distress, Wheezes , Retracting, Tender to Palpation Cardiovascular: Positive for: Irregular Rhythm, Peripheal Pulses Present, Tachycardic. Negative for: Regular Rate and Rhythm, Murmurs Abdomen: Positive for: Normal Bowel Sounds. Negative for: Tenderness, Distention, Peritoneal Signs Upper Extremity: Positive for: Normal Inspection, Edema, NORMAL PULSES, Capillary Refill < 2s Lower Extremity: Positive for: Edema, NORMAL PULSES, Capillary Refill < 2 s. Negative for: CALF TENDERNESS Neurological: Positive for: Motor Func Grossly Intact Psychiatric: Positive for: Alert Other physical findings (Free Text): does not follow commands. - Medications Active Medications: Active Medications Generic Name Dose Route Start Last Admin Trade Name Freq PRN Reason Stop Dose Admin Acetaminophen 650 mg 10/27/16 15:52 10/28/16 07:44 Tylenol 650mg/20.3ml Solution Ud PO 650 mg Q4 PRN Administration Fever >100.4 F Albuterol/Ipratropium 3 ml 10/21/16 20:00 10/28/16 11:07 Duoneb 3 Mg/0.5 Mg (3 Ml) Ud INH 3 ml RQID MEERA Administration Amiodarone HCl 100 mg 10/26/16 10:15 10/28/16 08:22 Cordarone GT 100 mg Q12H [facility]ERA Administration Amlodipine Besylate 10 mg 10/28/16 09:00 10/28/16 08:23 Norvasc PO 10 mg DAILY MEERA Administration Heparin Sodium (Porcine) 5,000 units 10/21/16 21:00 10/28/16 08:22 Heparin SC 5,000 units Q12 [facility]A Administration Protocol Ciprofloxacin 200 mls @ 200 mls/hr 10/22/16 09:00 10/28/16 08:21 Cipro 400mg/200ml Dsw IVPB 200 mls/hr DAILY [facility] Administration Vancomycin HCl 1 gm/ Sodium 250 mls @ 166.667 mls/hr 10/23/16 10:00 10/27/16 09 :11 Chloride IVPB 166.667 mls/hr Q48H [facility] Administration Dextrose 1,000 mls @ 60 mls/hr 10/27/16 20:30 10/27/16 21:57 Dextrose 5% In Water 1000 Ml IV 10/31/16 08:00 60 mls/hr .[id number] [facility] Administration Insulin Detemir 8 units 10/28/16 12:18 Levemir SC HS [facility] Insulin Human Regular 0 units 10/27/16 22:24 10/28/16 11:37 Humulin R SC 12 units ACCU-CHECK [facility] Administration Protocol Metoprolol Succinate 25 mg 10/27/16 16:30 10/28/16 08:24 Toprol Xl PO 25 mg DAILY [facility] Administration Morphine Sulfate 2 mg 10/27/16 16:30 10/28/16 11:45 Morphine IVP 2 mg Q2H PRN Administration Pain, severe (8-10) Pantoprazole Sodium 40 mg 10/22/16 09:00 10/28/16 08:23 Protonix Inj IVP 40 mg DAILY [facility] Administration - Patient Studies Lab Studies: Lab Studies 10/28/16 10/28/16 10/28/16 Range/Units 11:17 05:29 04:40 WBC 9.9 (4.8-10.8) K/uL RBC 3.69 L (3.80-5.20) Mil/uL Hgb 9.7 L (12.0-16.0) g/dL Hct 31.2 L (34.0-47.0) % MCV 84.6 (81.0-99.0) fl MCH 26.4 L (27.0-31.0) pg MCHC 31.1 L (33.0-37.0) g/dL RDW 17.0 H (11.5-14.5) % Plt Count 363 D (130-400) K/uL Sodium 153 H (132-148) mmol/l Potassium 3.7 (3.6-5.0) MMOL/L Chloride 111 H (98-107) mmol/L Carbon Dioxide 36 H (22-30) mmol/L Anion Gap 10 (10-20) BUN 52 H (7-17) mg/dl Creatinine 1.1 (0.7-1.2) mg/dL Est GFR ( Amer) 57 Est GFR (Non-Af Amer) 47 POC Glucose (mg/dL) 463 H* 327 H (65-110) mg/dL Random Glucose 344 H (65-105) mg/dL Calcium 9.2 (8.4-10.2) mg/dL Mycoplasma pneumon IgG (<=0.90) Mycoplasma pneumon IgM (<770) U/mL 10/28/16 10/27/16 10/27/16 Range/Units 00:57 22:57 22:18 WBC (4.8-10.8) K/uL RBC (3.80-5.20) Mil/uL Hgb (12.0-16.0) g/dL Hct (34.0-47.0) % MCV (81.0-99.0) fl MCH (27.0-31.0) pg MCHC (33.0-37.0) g/dL RDW (11.5-14.5) % Plt Count (130-400) K/uL Sodium (132-148) mmol/l Potassium (3.6-5.0) MMOL/L Chloride (98-107) mmol/L Carbon Dioxide (22-30) mmol/L Anion Gap (10-20) BUN (7-17) mg/dl Creatinine (0.7-1.2) mg/dL Est GFR ( Amer) Est GFR (Non-Af Amer) POC Glucose (mg/dL) 474 H* 480 H* 449 H* (65-110) mg/dL Random Glucose (65-105) mg/dL Calcium (8.4-10.2) mg/dL Mycoplasma pneumon IgG (<=0.90) Mycoplasma pneumon IgM (<770) U/mL 10/27/16 10/27/16 10/27/16 Range/Units 16:30 16:15 12:12 WBC (4.8-10.8) K/uL RBC (3.80-5.20) Mil/uL Hgb (12.0-16.0) g/dL Hct (34.0-47.0) % MCV (81.0-99.0) fl MCH (27.0-31.0) pg MCHC (33.0-37.0) g/dL RDW (11.5-14.5) % Plt Count (130-400) K/uL Sodium 159 H (132-148) mmol/l Potassium 3.5 L (3.6-5.0) MMOL/L Chloride 107 (98-107) mmol/L Carbon Dioxide 36 H (22-30) mmol/L Anion Gap 20 (10-20) BUN 48 H (7-17) mg/dl Creatinine 1.2 (0.7-1.2) mg/dL Est GFR ( Amer) 52 Est GFR (Non-Af Amer) 43 POC Glucose (mg/dL) 356 H 321 H (65-110) mg/dL Random Glucose 342 H (65-105) mg/dL Calcium 9.0 (8.4-10.2) mg/dL Mycoplasma pneumon IgG (<=0.90) Mycoplasma pneumon IgM (<770) U/mL 10/24/16 Range/Units 14:20 WBC (4.8-10.8) K/uL RBC (3.80-5.20) Mil/uL Hgb (12.0-16.0) g/dL Hct (34.0-47.0) % MCV (81.0-99.0) fl MCH (27.0-31.0) pg MCHC (33.0-37.0) g/dL RDW (11.5-14.5) % Plt Count (130-400) K/uL Sodium (132-148) mmol/l Potassium (3.6-5.0) MMOL/L Chloride (98-107) mmol/L Carbon Dioxide (22-30) mmol/L Anion Gap (10-20) BUN (7-17) mg/dl Creatinine (0.7-1.2) mg/dL Est GFR ( Amer) Est GFR (Non-Af Amer) POC Glucose (mg/dL) (65-110) mg/dL Random Glucose (65-105) mg/dL Calcium (8.4-10.2) mg/dL Mycoplasma pneumon IgG 1.00 H (<=0.90) Mycoplasma pneumon IgM 34 (<770) U/mL Laboratory Results - last 24 hr 10/24/16 10/27/16 10/27/16 14:20 12:12 16:15 WBC RBC Hgb Hct MCV MCH MCHC RDW Plt Count Sodium Potassium Chloride Carbon Dioxide Anion Gap BUN Creatinine Est GFR ( Amer) Est GFR (Non-Af Amer) POC Glucose (mg/dL) 321 H 356 H Random Glucose Calcium Mycoplasma pneumon IgG 1.00 H Mycoplasma pneumon IgM 34 10/27/16 10/27/16 10/27/16 16:30 22:18 22:57 WBC RBC Hgb Hct MCV MCH MCHC RDW Plt Count Sodium 159 H Potassium 3.5 L Chloride 107 Carbon Dioxide 36 H Anion Gap 20 BUN 48 H Creatinine 1.2 Est GFR ( Amer) 52 Est GFR (Non-Af Amer) 43 POC Glucose (mg/dL) 449 H* 480 H* Random Glucose 342 H Calcium 9.0 Mycoplasma pneumon IgG Mycoplasma pneumon IgM 10/28/16 10/28/16 10/28/16 00:57 04:40 05:29 WBC 9.9 RBC 3.69 L Hgb 9.7 L Hct 31.2 L MCV 84.6 MCH 26.4 L MCHC 31.1 L RDW 17.0 H Plt Count 363 D Sodium 153 H Potassium 3.7 Chloride 111 H Carbon Dioxide 36 H Anion Gap 10 BUN 52 H Creatinine 1.1 Est GFR ( Amer) 57 Est GFR (Non-Af Amer) 47 POC Glucose (mg/dL) 474 H* 327 H Random Glucose 344 H Calcium 9.2 Mycoplasma pneumon IgG Mycoplasma pneumon IgM 10/28/16 11:17 WBC RBC Hgb Hct MCV MCH MCHC RDW Plt Count Sodium Potassium Chloride Carbon Dioxide Anion Gap BUN Creatinine Est GFR ( Amer) Est GFR (Non-Af Amer) POC Glucose (mg/dL) 463 H* Random Glucose Calcium Mycoplasma pneumon IgG Mycoplasma pneumon IgM Fingerstick Blood Sugar Results: 463 Review of Systems - Review of Systems Systems not reviewed;Unavailable: Intubated Critical Care Progress Note - Ventilator Checklist Head of Bed 30 Degrees: Yes Daily Sedation Vacation: Yes Daily Assessment of Readiness to Wean: Yes Daily Spontaneous Breathing Trial: Yes PUD Prophalyxis: Yes DVT Prophylaxis: Yes Assessment/Plan (1) Acute respiratory failure Assessment and plan: 86yo F. PMHx HTN, dyslipidemia, CHF, anxiety, arthritis, asthma, DM type 2. () p/w septic shock and acute respiratory failure with hypoxia secondary to bilateral pneumonia. Neuro: Alert, not following commands Pulm: Acute respiratory failure secondary to bilateral pneumonia, on PRVC. CV: Hemodynamically stable, hypertension controlled with metoprolol by mouth daily and amlodipine by mouth daily. Hem: no acute issues Renal: hypernatremia on D5W@60 and free water flushes Endo: diabetes type 2, regular insulin sliding scale, levemir 8 units qhs GI: NPO, glucerna@60 with free water 200ml q6h ID: severe sepsis from persistent pneumonia, continue vancomycin q48h and cipro. DVT proph - heparin sq GI proph - protonix holloway for strict I/O's during acute illness Code status - DNR/DNI Crtical Care Time spent 35 minutes Multi-disciplinary rounds were performed with house staff, nursing, speech therapy, respiratory therapy, pharmacy and nutrition with integrated input from the primary team/attending and other consulting services. The documented time is cumulative and includes review of patient data/exams/labs/chart review and examination of the patient on rounds and throughout the day; time is exclusive of any procedures or teaching time. Current Visit: Yes Status: Acute Priority: High
[2016-10-28] MEDS: Insulin Detemir 100 Units/ml Inj SC SCH ×2 (16:12→22:24)
--- NOTE | 2016-10-28 17:57 | CP.PCM.PN ---
Subjective - Date & Time of Evaluation Date of Evaluation: 10/28/16 - Subjective Subjective: F/U acute respiratory failure. Pt with minimal response to tactile stimuli. Objective - Vital Signs/Intake and Output Vital Signs (last 24 hours): Temp Pulse Resp BP Pulse Ox 101.4 F H 102 H 29 H 139/44 L 95 10/28/16 16:00 10/28/16 16:00 10/28/16 16:00 10/28/16 16:00 10/28/16 16:00 Intake and Output: 10/28/16 10/28/16 06:59 18:59 Intake Total 1300 600 Output Total 700 Balance 600 600 - Medications Medications: Current Medications Acetaminophen (Tylenol 650mg/20.3ml Solution Ud) 650 mg PO Q4 PRN PRN Reason: Fever >100.4 F Last Admin: 10/28/16 15:40 Dose: 650 mg Albuterol/Ipratropium (Duoneb 3 Mg/0.5 Mg (3 Ml) Ud) 3 ml INH RQID [facility] Last Admin: 10/28/16 15:28 Dose: 3 ml Amiodarone HCl (Cordarone) 100 mg GT Q12H [facility] Last Admin: 10/28/16 08:22 Dose: 100 mg Amlodipine Besylate (Norvasc) 10 mg PO DAILY [facility] Last Admin: 10/28/16 08:23 Dose: 10 mg Heparin Sodium (Porcine) (Heparin) 5,000 units SC Q12 [facility] PRN Reason: Protocol Last Admin: 10/28/16 08:22 Dose: 5,000 units Ciprofloxacin (Cipro 400mg/200ml Dsw) 200 mls @ 200 mls/hr IVPB DAILY [facility] Last Admin: 10/28/16 08:21 Dose: 200 mls/hr Vancomycin HCl 1 gm/ Sodium (Chloride) 250 mls @ 166.667 mls/hr IVPB Q48H [facility] Last Admin: 10/27/16 09:11 Dose: 166.667 mls/hr Dextrose (Dextrose 5% In Water 1000 Ml) 1,000 mls @ 60 mls/hr IV .[id number] [facility] Stop: 10/31/16 08:00 Last Admin: 10/27/16 21:57 Dose: 60 mls/hr Insulin Detemir (Levemir) 8 units SC [facility] Last Admin: 10/28/16 16:12 Dose: 8 units Insulin Human Regular (Humulin R) 0 units SC ACCU-CHECK [facility] PRN Reason: Protocol Last Admin: 10/28/16 16:10 Dose: 12 units Metoprolol Succinate (Toprol Xl) 25 mg PO DAILY [facility] Last Admin: 10/28/16 08:24 Dose: 25 mg Morphine Sulfate (Morphine) 2 mg IVP Q2H PRN PRN Reason: Pain, severe (8-10) Last Admin: 10/28/16 17:45 Dose: 2 mg Pantoprazole Sodium (Protonix Inj) 40 mg IVP DAILY [facility] Last Admin: 10/28/16 08:23 Dose: 40 mg - Labs Labs: 10/28/16 04:40 10/28/16 04:40 PT 13.6 SECONDS (9.6-11.2) H 10/22/16 06:00 INR 1.31 (0.92-1.08) H 10/22/16 06:00 APTT 33.1 SECONDS (23.3-32.5) H 10/22/16 06:00 - Constitutional Appears: Chronically Ill - Head Exam Head Exam: NORMAL INSPECTION - Eye Exam Additional comments: Eyes unable to asses, eyes closed to light stimuli. - ENT Exam Additional comments: High flow O2. - Neck Exam Neck Exam: Normal Inspection - Respiratory Exam Respiratory Exam: Decreased Breath Sounds, Wheezes (few scattered) - Cardiovascular Exam Cardiovascular Exam: Tachycardia, Irregular Rhythm - GI/Abdominal Exam GI & Abdominal Exam: Distended (mild), Soft - Extremities Exam Extremities Exam: Pedal Edema - Back Exam Additional comments: Healed sacral ulcer. Ulcer R buttock. - Neurological Exam Additional comments: Minimal response to tactilie stimuli. - Psychiatric Exam Psychiatric exam: Flat Affect - Skin Skin Exam: Warm Assessment and Plan (1) Acute respiratory failure Status: Acute (2) Pneumonia Status: Acute (3) Septic shock Status: Acute (4) Abdominal pain Status: Acute (5) Uncontrolled diabetes mellitus Status: Acute (6) Acute renal failure (ARF) Status: Acute (7) A-fib Status: Acute - Assessment and Plan (Free Text) Plan: Continue high flow O2, Cipro, Duoneb, Morphine, Insulin R, Levemir and rest of Tx. ICU TIME: 40 MIN.
--- NOTE | 2016-10-28 19:23 | CP.PCM.PN ---
Subjective - Date & Time of Evaluation Date of Evaluation: 10/28/16 Time of Evaluation: 19:22 - Subjective Subjective: pt seen and examined, follow up consult is dictated#[id number] avoid misxing abx with NS , mix with d5w or 1/2 ns if compatable continue d5w at 60 ml/hr Objective - Vital Signs/Intake and Output Vital Signs (last 24 hours): Temp Pulse Resp BP Pulse Ox 101.4 F H 91 H 17 110/46 L 97 10/28/16 16:00 10/28/16 18:00 10/28/16 18:00 10/28/16 18:00 10/28/16 18:00 Intake and Output: 10/28/16 10/29/16 18:59 06:59 Intake Total 1590 Output Total 600 Balance 990 - Medications Medications: Current Medications Acetaminophen (Tylenol 650mg/20.3ml Solution Ud) 650 mg PO Q4 PRN PRN Reason: Fever >100.4 F Last Admin: 10/28/16 15:40 Dose: 650 mg Albuterol/Ipratropium (Duoneb 3 Mg/0.5 Mg (3 Ml) Ud) 3 ml INH RQID [facility] Last Admin: 10/28/16 15:28 Dose: 3 ml Amiodarone HCl (Cordarone) 100 mg GT Q12H [facility] Last Admin: 10/28/16 08:22 Dose: 100 mg Amlodipine Besylate (Norvasc) 10 mg PO DAILY [facility] Last Admin: 10/28/16 08:23 Dose: 10 mg Heparin Sodium (Porcine) (Heparin) 5,000 units SC Q12 [facility] PRN Reason: Protocol Last Admin: 10/28/16 08:22 Dose: 5,000 units Ciprofloxacin (Cipro 400mg/200ml Dsw) 200 mls @ 200 mls/hr IVPB DAILY [facility] Last Admin: 10/28/16 08:21 Dose: 200 mls/hr Vancomycin HCl 1 gm/ Sodium (Chloride) 250 mls @ 166.667 mls/hr IVPB Q48H [facility] Last Admin: 10/27/16 09:11 Dose: 166.667 mls/hr Dextrose (Dextrose 5% In Water 1000 Ml) 1,000 mls @ 60 mls/hr IV .[id number] [facility] Stop: 10/31/16 08:00 Last Admin: 10/27/16 21:57 Dose: 60 mls/hr Insulin Detemir (Levemir) 8 units SC HS [facility] Last Admin: 10/28/16 16:12 Dose: 8 units Insulin Human Regular (Humulin R) 0 units SC ACCU-CHECK [facility] PRN Reason: Protocol Last Admin: 10/28/16 16:10 Dose: 12 units Metoprolol Succinate (Toprol Xl) 25 mg PO DAILY [facility] Last Admin: 10/28/16 08:24 Dose: 25 mg Morphine Sulfate (Morphine) 2 mg IVP Q2H PRN PRN Reason: Pain, severe (8-10) Last Admin: 10/28/16 17:45 Dose: 2 mg Pantoprazole Sodium (Protonix Inj) 40 mg IVP DAILY [facility] Last Admin: 10/28/16 08:23 Dose: 40 mg - Labs Labs: 10/28/16 04:40 10/28/16 04:40 PT 13.6 SECONDS (9.6-11.2) H 10/22/16 06:00 INR 1.31 (0.92-1.08) H 10/22/16 06:00 APTT 33.1 SECONDS (23.3-32.5) H 10/22/16 06:00
--- NOTE | 2016-10-28 20:34 | PN ---
DATE: 10/28/2016 REQUESTING PHYSICIAN: Dr. Augie Gil. REASON FOR FOLLOWUP: Acute renal failure, hypernatremia, electrolyte imbalance, and metabolic alkalo sis. HISTORY OF PRESENT ILLNESS: The patient is an 86-year-old elderly female with a history of hypertension, diabetes, hyperlipidemia, arthritis, asthma, atrial fibrillation, [facility], who was admitted with cough and shortness of breath. The patient is being treated for possible pneumonia and sepsis and also the patient was found to have cardiomyopathy. The patient wa s initially started on pressors and also IV antibiotics and gentle hydration and renal function is sl owly improving. The patient was given Lasix over the weekend and with a good diuresis, about 9 L, an d the patient became hypernatremic. The patient is very drowsy, tried to open her eyes and involunta ry movement of both upper extremities, sometimes lower extremities. The patient was started on gentl e IV hydration again on D5W at 60 mL per hour and also free water 200 mL q. 3 hours. The patient is not in acute distress. The patient's family at bedside, does not want any aggressive measures. THE PATIENT IS DNR AND DNI. Vital signs and I's and O's: Intake 24 hours, intake is 2520 and output is 1400. PHYSICAL EXAMINATION: GENERAL:. The patient is an 86-year-old elderly female, moderately built, moderately nourished, not in any distress. VITAL SIGNS: Blood pressure 110/46, pulse 91, respirations 17, temperature 101.4, saturation 97%, he ight 5 feet and weight is 153 pounds. HEENT: Conjunctivae pink. Sclerae anicteric. The pupils normal, reactive to light and accommodatio n. NECK: Trachea is midline. LUNGS: Symmetric on both sides. Bilateral breath sounds present. Occasional basilar crackles prese nt. CARDIOVASCULAR: [place] at the sixth intercostal space midclavicular line. S1 and S2 audible. No murm ur, no gallop. ABDOMEN: Normal in appearance, soft, tympanic. No guarding, no rigidity. No hepatosplenomegaly. CENTRAL NERVOUS SYSTEM: The patient is very drowsy and tried to open eyes. Involuntary movement of both upper extremities and lower extremities. CURRENT MEDICATIONS: Include as follows: Ciprofloxin 400 mg IV daily, amiodarone 100 mg q. 12 hour s and IV fluids D5W at 60 mL/h per hour, and albuterol and ipratropium inhaler q.i.d. at 3 mL, and moreno bcutaneous heparin 5000 q. 12 hours, insulin regular subQ 16 units and also sliding scale, and insuli n detemir, Levemir, 8 units subQ at bedtime, metoprolol 5 mg x 1 was given yesterday, 10/27/2016, morp rajesh 2 mg IV q. 2 hours and amlodipine 10 mg daily, Protonix 40 mg IV daily, metoprolol succinate 25 mg p.o. daily, Tylenol, and vancomycin 1 g q. 48 hours. LABORATORY DATA: Include as follows: As of 10/28/2016: WBC 9.9, hemoglobin 9.7, hematocrit is 31.2 , platelets 363. Sodium 153, potassium 3.7, chloride 111, CO2 36, anion gap is 10, BUN 52, creatinin e 1.1, glucose 327, calcium 9.2. CT of the chest, as of 10/27/2016, impression progressive lower lobe infiltrates and the appears . The distribution suggests aspiration pneumonia, no significant pleural effusion. SUMMARY: The patient is an 86-year-old elderly female, with history of hypertension, diabet es, hyperlipidemia, cardiomyopathy, asthma, resident in [facility], dementia; who was admitted with shortness of breath and is being treated for possible pneumonia and sepsis with acute renal failure. 1. Acute renal failure. Renal function improved since admission. Now picture consistent with preren al. 2. Hypernatremia, secondary to vigorous diuresis. Continue gentle IV hydration with D5W at 60 mL per hour and avoid mixing antibiotics with normal saline. Recommend to mix with half normal saline and D5W, if compatible. 3. Pneumonia. 4. Cardiomyopathy. 5. Overall prognosis is very poor. THE PATIENT IS DNR AND DNI. The patient's family does not want a ny aggressive measures or any intubation. We will follow with you. Thank you for allowing me to participate in your patient's care. Gurjit Comer MD cc: [id number] TT: 10/28/2016 20:33:25 Confirmation # [id number] Dictation # [id number] ln
[2016-10-29] MEDS: Acetaminophen 650mg/20.3ml solution UD PO PRN (00:20)
[2016-10-29] MEDS: Insulin Regular 100 units/ml SC SCH ×2 (05:59→14:59)
[2016-10-29 06:33] LABS: BLOOD UREA NITROGEN 46 mg/dl (7-17); CALCIUM 8.8 mg/dL (8.4-10.2); CARBON DIOXIDE 37 mmol/L (22-30); CHLORIDE 109 mmol/L (98-107); GFR AFRICAN-AMERICAN > 60; GLUCOSE,RANDOM 335 mg/dL (65-105); POTASSIUM 3.8 MMOL/L (3.6-5.0); SODIUM 151 mmol/l (132-148)
[2016-10-29 06:42] LABS: HEMATOCRIT 31.3 % (34.0-47.0); MEAN CELL VOLUME 86.7 fl (81.0-99.0); MEAN CORPUSCULAR HEMOGLOBIN 26.6 pg (27.0-31.0); MEAN CORPUSCULAR HGB CONC 30.6 g/dL (33.0-37.0); RED CELL DISTRIBUTION WIDTH 17.4 % (11.5-14.5)
--- NOTE | 2016-10-29 08:20 | CP.CCUPN ---
CCU Subjective - Physician Review Events Since Last Encounter (Free Text): 10/29/16 08:18 Patient lethargic, no response to verbal stimuli, on O2 supplement by nasal canula, on NG feeding, no pressors, events reviewed CCU Objective - Vital Signs / Intake & Output Vital Signs (Last 4 hours): Vital Signs Temp Pulse Resp BP Pulse Ox 10/29/16 08:02 34 H 10/29/16 07:48 100 F H 91 H 37 H 155/49 H 100 10/29/16 06:40 97 H 117 H 153/45 H 30 L 10/29/16 06:00 96 H 28 H 153/45 H 93 L 10/29/16 05:29 22 10/29/16 05:00 89 23 154/54 H 93 L Intake and Output (Last 8hrs): Intake & Output 10/28/16 10/29/16 10/29/16 22:59 06:59 14:59 Intake Total 1320 5150 Output Total 600 500 Balance 720 4650 Intake: IV 840 300 Tube Feeding 480 4450 Free Water Flush 400 Output: Urine 600 500 Urethral (Osullivan) 600 500 Other: # Bowel Movements 0 - Physical Exam Head: Positive for: Atraumatic, Normocephalic Pupils: Positive for: PERRL Conjunctiva: Positive for: Normal. Negative for: Injected, Icteric Neck: Positive for: Normal Range of Motion, Meningeal Signs, MIDLINE TENDERNESS , Trachea Midline. Negative for: Paraspinal Tenderness, JVD, Lymphadenopathy, Bruit Respiratory/Chest: Positive for: Decreased Breath Sounds, Rales, Rhonchi. Negative for: Wheezes, Tender to Palpation Cardiovascular: Positive for: Irregular Rhythm, Peripheal Pulses Present. Negative for: Regular Rate and Rhythm, Murmurs Abdomen: Positive for: Normal Bowel Sounds. Negative for: Tenderness, Distention, Peritoneal Signs Upper Extremity: Positive for: Normal Inspection, Edema, NORMAL PULSES, Capillary Refill < 2s Lower Extremity: Positive for: Edema, NORMAL PULSES, Capillary Refill < 2 s. Negative for: CALF TENDERNESS Neurological: Positive for: Other (lethergic, no response to verbal stimuli) - Medications Active Medications: Active Medications Generic Name Dose Route Start Last Admin Trade Name Freq PRN Reason Stop Dose Admin Acetaminophen 650 mg 10/27/16 15:52 10/29/16 00:20 Tylenol 650mg/20.3ml Solution Ud PO 650 mg Q4 PRN Administration Fever >100.4 F Albuterol/Ipratropium 3 ml 10/21/16 20:00 10/28/16 19:32 Duoneb 3 Mg/0.5 Mg (3 Ml) Ud INH 3 ml RQID MEERA Administration Amiodarone HCl 100 mg 10/26/16 10:15 10/28/16 21:33 Cordarone GT 100 mg Q12H MEERA Administration Amlodipine Besylate 10 mg 10/28/16 09:00 10/28/16 08:23 Norvasc PO 10 mg DAILY MEERA Administration Heparin Sodium (Porcine) 5,000 units 10/21/16 21:00 10/28/16 20:55 Heparin SC 5,000 units Q12 MEERA Administration Protocol Ciprofloxacin 200 mls @ 200 mls/hr 10/22/16 09:00 10/28/16 08:21 Cipro 400mg/200ml Dsw IVPB 200 mls/hr DAILY MEERA Administration Vancomycin HCl 1 gm/ Sodium 250 mls @ 166.667 mls/hr 10/23/16 10:00 10/27/16 09 :11 Chloride IVPB 166.667 mls/hr Q48H MEERA Administration Dextrose 1,000 mls @ 60 mls/hr 10/27/16 20:30 10/28/16 19:31 Dextrose 5% In Water 1000 Ml IV 10/31/16 08:00 60 mls/hr .[id number] MEERA Administration Insulin Detemir 8 units 10/28/16 12:18 10/28/16 22:24 Levemir SC 8 units HS MEERA Administration Insulin Human Regular 0 units 10/27/16 22:24 10/29/16 05:59 Humulin R SC 6 units ACCU-CHECK MEERA Administration Protocol Metoprolol Succinate 25 mg 10/27/16 16:30 10/28/16 08:24 Toprol Xl PO 25 mg DAILY MEERA Administration Morphine Sulfate 2 mg 10/27/16 16:30 10/29/16 01:10 Morphine IVP 2 mg Q2H PRN Administration Pain, severe (8-10) Pantoprazole Sodium 40 mg 10/22/16 09:00 10/28/16 08:23 Protonix Inj IVP 40 mg DAILY MEERA Administration - Patient Studies Lab Studies: Lab Studies 0310/29/16 10/28/16 Range/Units 06:02 04:47 20:53 WBC 15.0 H D (4.8-10.8) K/uL RBC 3.61 L (3.80-5.20) Mil/uL Hgb 9.6 L (12.0-16.0) g/dL Hct 31.3 L (34.0-47.0) % MCV 86.7 D (81.0-99.0) fl MCH 26.6 L (27.0-31.0) pg MCHC 30.6 L (33.0-37.0) g/dL RDW 17.4 H (11.5-14.5) % Plt Count 394 (130-400) K/uL Sodium 151 H (132-148) mmol/l Potassium 3.8 (3.6-5.0) MMOL/L Chloride 109 H (98-107) mmol/L Carbon Dioxide 37 H (22-30) mmol/L Anion Gap 9 L (10-20) BUN 46 H (7-17) mg/dl Creatinine 1.0 (0.7-1.2) mg/dL Est GFR ( Amer) > 60 Est GFR (Non-Af Amer) 53 POC Glucose (mg/dL) 321 H 496 H* (65-110) mg/dL Random Glucose 335 H (65-105) mg/dL Calcium 8.8 (8.4-10.2) mg/dL 10/28/16 10/28/16 Range/Units 16:07 11:17 WBC (4.8-10.8) K/uL RBC (3.80-5.20) Mil/uL Hgb (12.0-16.0) g/dL Hct (34.0-47.0) % MCV (81.0-99.0) fl MCH (27.0-31.0) pg MCHC (33.0-37.0) g/dL RDW (11.5-14.5) % Plt Count (130-400) K/uL Sodium (132-148) mmol/l Potassium (3.6-5.0) MMOL/L Chloride (98-107) mmol/L Carbon Dioxide (22-30) mmol/L Anion Gap (10-20) BUN (7-17) mg/dl Creatinine (0.7-1.2) mg/dL Est GFR ( Amer) Est GFR (Non-Af Amer) POC Glucose (mg/dL) 462 H* 463 H* (65-110) mg/dL Random Glucose (65-105) mg/dL Calcium (8.4-10.2) mg/dL Laboratory Results - last 24 hr 10/28/16 10/28/16 10/28/16 11:17 16:07 20:53 WBC RBC Hgb Hct MCV MCH MCHC RDW Plt Count Sodium Potassium Chloride Carbon Dioxide Anion Gap BUN Creatinine Est GFR ( Amer) Est GFR (Non-Af Amer) POC Glucose (mg/dL) 463 H* 462 H* 496 H* Random Glucose Calcium 10/29/16 10/29/16 04:47 06:02 WBC 15.0 H D RBC 3.61 L Hgb 9.6 L Hct 31.3 L MCV 86.7 D MCH 26.6 L MCHC 30.6 L RDW 17.4 H Plt Count 394 Sodium 151 H Potassium 3.8 Chloride 109 H Carbon Dioxide 37 H Anion Gap 9 L BUN 46 H Creatinine 1.0 Est GFR ( Amer) > 60 Est GFR (Non-Af Amer) 53 POC Glucose (mg/dL) 321 H Random Glucose 335 H Calcium 8.8 Fingerstick Blood Sugar Results: 321 Assessment/Plan - Assessment and Plan (Free Text) Assessment: A/P Respiratory insufficiency, pneumonia, CHF, sepsis, DM, asthma, hypernatremia, h/ o HTN - O2 supplement - Pulmonary toilets - Continue meds - NG feeding - Poor prognosis - DNR/DNI
[2016-10-29] MEDS: Albuterol-Ipratrop 3 mg / 0.5 (3 ml) UD INH SCH ×4 (08:42→19:47)
[2016-10-29] MEDS: Ciprofloxacin 400mg/200ml D5W 200 ML IVPB SCH (09:08)
[2016-10-29] MEDS: Metoprolol Succinate 25 mg XL Tab PO SCH (09:11)
[2016-10-29 14:15] VITALS: BP 103/38; PULSE 81; RESP 4; TEMP 100.8; O2SAT 90
--- NOTE | 2016-10-29 15:27 | CP.PCM.PN ---
Subjective - Date & Time of Evaluation Date of Evaluation: 10/29/16 Time of Evaluation: 15:27 - Subjective Subjective: pt seen and examined, follow up consult is dictated #[id number] Objective - Vital Signs/Intake and Output Vital Signs (last 24 hours): Temp Pulse Resp BP Pulse Ox 100.8 F H 81 4 L 103/38 L 90 L 10/29/16 12:00 10/29/16 12:00 10/29/16 12:00 10/29/16 12:00 10/29/16 12:00 Intake and Output: 10/29/16 10/29/16 06:59 18:59 Intake Total 5480 Output Total 500 Balance 4980 - Medications Medications: Current Medications Acetaminophen (Tylenol 650mg/20.3ml Solution Ud) 650 mg PO Q4 PRN PRN Reason: Fever >100.4 F Last Admin: 10/29/16 00:20 Dose: 650 mg Albuterol/Ipratropium (Duoneb 3 Mg/0.5 Mg (3 Ml) Ud) 3 ml INH RQID [facility] Last Admin: 10/29/16 11:34 Dose: 3 ml Amiodarone HCl (Cordarone) 100 mg GT Q12H MEERA Last Admin: 10/29/16 09:09 Dose: 100 mg Amlodipine Besylate (Norvasc) 10 mg PO DAILY [facility] Last Admin: 10/29/16 09:10 Dose: 10 mg Heparin Sodium (Porcine) (Heparin) 5,000 units SC Q12 MEERA PRN Reason: Protocol Last Admin: 10/29/16 09:10 Dose: 5,000 units Ciprofloxacin (Cipro 400mg/200ml Dsw) 200 mls @ 200 mls/hr IVPB DAILY [facility] Last Admin: 10/29/16 09:08 Dose: 200 mls/hr Dextrose (Dextrose 5% In Water 1000 Ml) 1,000 mls @ 60 mls/hr IV .[id number] [facility] Stop: 10/31/16 08:00 Last Admin: 10/28/16 19:31 Dose: 60 mls/hr Insulin Detemir (Levemir) 8 units SC HS [facility] Last Admin: 10/28/16 22:24 Dose: 8 units Insulin Human Regular (Humulin R) 0 units SC ACCU-CHECK MEERA PRN Reason: Protocol Last Admin: 10/29/16 14:59 Dose: 12 units Metoprolol Succinate (Toprol Xl) 25 mg PO DAILY MEERA Last Admin: 10/29/16 09:11 Dose: 25 mg Morphine Sulfate (Morphine) 2 mg IVP Q2H PRN PRN Reason: Pain, severe (8-10) Last Admin: 10/29/16 01:10 Dose: 2 mg - Labs Labs: 10/29/16 06:02 10/29/16 06:02 PT 13.6 SECONDS (9.6-11.2) H 10/22/16 06:00 INR 1.31 (0.92-1.08) H 10/22/16 06:00 APTT 33.1 SECONDS (23.3-32.5) H 10/22/16 06:00
--- NOTE | 2016-10-29 16:12 | PN ---
DATE: 10/29/2016 The patient is located in room 432, bed 1. REQUESTED BY: Augie Gil MD REASON FOR FOLLOWUP: Hypernatremia, acute renal failure, cardiomyopathy. HISTORY OF PRESENT ILLNESS: The patient is an 86-year-old elderly female with a past medica l history significant for long-standing hypertension, diabetes, hyperlipidemia, asthma, AFib and rabiabrian guan, resident of [facility], who was admitted with shortness of breath. Initially, patient was tr eated with pressors and IV antibiotics for possible pneumonia and sepsis. The patient was also found to have a severe cardiomyopathy with LV function about 25% and being treated for acute renal failure . The patient is not in acute distress, not responding to verbal stimuli. Spontaneous movement of b oth upper and lower extremities. Serum sodium is slowly improving with IV hydration. PHYSICAL EXAMINATION: VITAL SIGNS: Blood pressure 103/38, pulse 81, respirations about 30, temperature 100.8, saturation 9 0%. Height 5 feet and weight is 153 pounds. GENERAL: The patient is an 86-year-old elderly female, moderately built, moderately nourished, not i n distress. HEENT: Pupils normal, reactive to light and accommodation. Conjunctivae pink. Sclerae anicteric. Tongue is dry. NECK: No thyroid enlargement. LUNGS: Symmetric on both sides. Bilateral breath sounds present. Occasional basal crackles present . CARDIOVASCULAR: Sidney at the sixth intercostal space midclavicular line. S1 and S2 audible. No murm ur or gallop. ABDOMEN: Slightly distended, soft, tympanic. No guarding, no ischemia, no ____. CENTRAL NERVOUS SYSTEM: The patient is drowsy, not responding to verbal stimuli. Moving all 4 extre mities. INTAKE AND OUTPUT AND MEDICATION: Intake 7070 and output 1100. Doubt I's and O's as patient is rece iving only D5W at 60 mL per hour and no free water, got 200 mL q. 6 hours as per RN. CURRENT MEDICATIONS: Include Cipro 400 mg IV daily, amiodarone 100 mg q. 12 hours, IV fluids D5W at 60 mL per hour, DuoNeb inhaler, subQ heparin, Levemir 8 units subQ, morphine sulfate 2 mg IV q. 12 ho urs, Toprol-XL 25 mg p.o. daily and Tylenol. LABORATORY DATA: Include, as of 10/29/2016: WBC 15, hemoglobin 9.6, hematocrit is 31.3, platelets 3 94. Sodium 151, potassium 3.____, chloride ____, CO2 37, BUN 46, creatinine 1.0, glucose 335, calciu m 8.8. SUMMARY: The patient is an 86-year-old elderly female with hypertension, diabetes, hyperlipidemia, a trial fibrillation, now dementia, cardiomyopathy with high sodium and increased BUN and creatinine. 1. Hypernatremia secondary to intravascular volume depletion and secondary to vigorous diuresis. Co ntinue gentle IV hydration. Serum sodium is slowly improving. 2. Acute renal failure. Now picture consistent with prerenal azotemia. Renal function is slowly im proving. 3. Cardiomyopathy. 4. Pneumonia. PLAN: Continue IV antibiotics as per ID. Check stool for C. diff, as WBC count is worsening from 9. 9 to 15 today. Will follow with you. Thank you for allowing me to participate in your patient's care. Will discuss with ____ regarding __ __. Gurjit Comer MD cc: [id number] TT: 10/29/2016 16:11:29 Confirmation # [id number] Dictation # [id number] mn
--- NOTE | 2016-10-29 16:36 | CP.CCUPN ---
CCU Subjective - Physician Review Events Since Last Encounter (Free Text): 10/29/16 16:34 Patient has no pulse, no blood pressure, no respiration, asystoly, patient DNR/ DNI, patient pronounced at 4.24 PM 10/29/2016 CCU Objective - Vital Signs / Intake & Output Intake and Output (Last 8hrs): Intake & Output 10/29/16 10/29/16 10/29/16 06:59 14:59 22:59 Intake Total 5150 Output Total 500 Balance 4650 Intake: IV 300 Tube Feeding 4450 Free Water Flush 400 Output: Urine 500 Urethral (Osullivan) 500 - Medications Active Medications: Active Medications Generic Name Dose Route Start Last Admin Trade Name Freq PRN Reason Stop Dose Admin Acetaminophen 650 mg 10/27/16 15:52 10/29/16 00:20 Tylenol 650mg/20.3ml Solution Ud PO 650 mg Q4 PRN Administration Fever >100.4 F Albuterol/Ipratropium 3 ml 10/21/16 20:00 10/29/16 16:08 Duoneb 3 Mg/0.5 Mg (3 Ml) Ud INH 3 ml RQID MEERA Administration Amiodarone HCl 100 mg 10/26/16 10:15 10/29/16 09:09 Cordarone GT 100 mg Q12H MEERA Administration Amlodipine Besylate 10 mg 10/28/16 09:00 10/29/16 09:10 Norvasc PO 10 mg DAILY MEERA Administration Heparin Sodium (Porcine) 5,000 units 10/21/16 21:00 10/29/16 09:10 Heparin SC 5,000 units Q12 MEERA Administration Protocol Ciprofloxacin 200 mls @ 200 mls/hr 10/22/16 09:00 10/29/16 09:08 Cipro 400mg/200ml Dsw IVPB 200 mls/hr DAILY MEERA Administration Dextrose 1,000 mls @ 60 mls/hr 10/27/16 20:30 10/28/16 19:31 Dextrose 5% In Water 1000 Ml IV 10/31/16 08:00 60 mls/hr .[id number] MEERA Administration Insulin Detemir 8 units 10/28/16 12:18 10/28/16 22:24 Levemir SC 8 units HS MEERA Administration Insulin Human Regular 0 units 10/27/16 22:24 10/29/16 14:59 Humulin R SC 12 units ACCU-CHECK MEERA Administration Protocol Metoprolol Succinate 25 mg 10/27/16 16:30 10/29/16 09:11 Toprol Xl PO 25 mg DAILY MEERA Administration Morphine Sulfate 2 mg 10/27/16 16:30 10/29/16 01:10 Morphine IVP 2 mg Q2H PRN Administration Pain, severe (8-10) - Patient Studies Lab Studies: Lab Studies 10/29/16 10/29/16 10/29/16 Range/Units 14:51 06:02 04:47 WBC 15.0 H D (4.8-10.8) K/uL RBC 3.61 L (3.80-5.20) Mil/uL Hgb 9.6 L (12.0-16.0) g/dL Hct 31.3 L (34.0-47.0) % MCV 86.7 D (81.0-99.0) fl MCH 26.6 L (27.0-31.0) pg MCHC 30.6 L (33.0-37.0) g/dL RDW 17.4 H (11.5-14.5) % Plt Count 394 (130-400) K/uL Sodium 151 H (132-148) mmol/l Potassium 3.8 (3.6-5.0) MMOL/L Chloride 109 H (98-107) mmol/L Carbon Dioxide 37 H (22-30) mmol/L Anion Gap 9 L (10-20) BUN 46 H (7-17) mg/dl Creatinine 1.0 (0.7-1.2) mg/dL Est GFR ( Amer) > 60 Est GFR (Non-Af Amer) 53 POC Glucose (mg/dL) 432 H* 321 H (65-110) mg/dL Random Glucose 335 H (65-105) mg/dL Calcium 8.8 (8.4-10.2) mg/dL 10/28/16 10/28/16 Range/Units 20:53 16:07 WBC (4.8-10.8) K/uL RBC (3.80-5.20) Mil/uL Hgb (12.0-16.0) g/dL Hct (34.0-47.0) % MCV (81.0-99.0) fl MCH (27.0-31.0) pg MCHC (33.0-37.0) g/dL RDW (11.5-14.5) % Plt Count (130-400) K/uL Sodium (132-148) mmol/l Potassium (3.6-5.0) MMOL/L Chloride (98-107) mmol/L Carbon Dioxide (22-30) mmol/L Anion Gap (10-20) BUN (7-17) mg/dl Creatinine (0.7-1.2) mg/dL Est GFR ( Amer) Est GFR (Non-Af Amer) POC Glucose (mg/dL) 496 H* 462 H* (65-110) mg/dL Random Glucose (65-105) mg/dL Calcium (8.4-10.2) mg/dL Laboratory Results - last 24 hr 10/28/16 10/28/16 10/29/16 16:07 20:53 04:47 WBC RBC Hgb Hct MCV MCH MCHC RDW Plt Count Sodium Potassium Chloride Carbon Dioxide Anion Gap BUN Creatinine Est GFR ( Amer) Est GFR (Non-Af Amer) POC Glucose (mg/dL) 462 H* 496 H* 321 H Random Glucose Calcium 10/29/16 10/29/16 06:02 14:51 WBC 15.0 H D RBC 3.61 L Hgb 9.6 L Hct 31.3 L MCV 86.7 D MCH 26.6 L MCHC 30.6 L RDW 17.4 H Plt Count 394 Sodium 151 H Potassium 3.8 Chloride 109 H Carbon Dioxide 37 H Anion Gap 9 L BUN 46 H Creatinine 1.0 Est GFR ( Amer) > 60 Est GFR (Non-Af Amer) 53 POC Glucose (mg/dL) 432 H* Random Glucose 335 H Calcium 8.8 Fingerstick Blood Sugar Results: 432
== END 2016-10-29 16:24 | DRG 871 ==
LOC: H.ER 15:18 → H.ERHOLD 18:07 → H.ICU/CCU 19:44 → UNDODISIN 10-30 05:25
PROVIDERS: ADMIT Internal Medicine Pulmonary Disease; ATTEND Internal Medicine Pulmonary Disease
PROC: 5A09457 Assistance with Respiratory Ventilation, 24-96 Consecutive Hours, Continuous Positive Airway Pressure (ICD-10-PCS; 2016-10-21)
PROC: 05HM33Z Insertion of Infusion Device into Right Internal Jugular Vein, Percutaneous Approach (ICD-10-PCS; principal; 2016-10-22)
PROC: 3E03329 Introduction of Other Anti-infective into Peripheral Vein, Percutaneous Approach (ICD-10-PCS; 2016-10-22)
PROC: 0DH67UZ Insertion of Feeding Device into Stomach, Via Natural or Artificial Opening (ICD-10-PCS; 2016-10-26)
PROC: 3E0G76Z Introduction of Nutritional Substance into Upper GI, Via Natural or Artificial Opening (ICD-10-PCS; 2016-10-26)
DX: A41.9 Sepsis, unspecified organism (principal); R65.21 Severe sepsis with septic shock; N17.0 Acute kidney failure with tubular necrosis; J96.01 Acute respiratory failure with hypoxia; I50.23 Acute on chronic systolic (congestive) heart failure; J18.9 Pneumonia, unspecified organism; I47.2 Ventricular tachycardia; E87.2 Acidosis; I42.9 Cardiomyopathy, unspecified; I48.92 Unspecified atrial flutter; E87.0 Hyperosmolality and hypernatremia; I11.0 Hypertensive heart disease with heart failure; L89.319 Pressure ulcer of right buttock, unspecified stage; I95.9 Hypotension, unspecified; I48.91 Unspecified atrial fibrillation; J45.909 Unspecified asthma, uncomplicated; E11.65 Type 2 diabetes mellitus with hyperglycemia; E87.6 Hypokalemia; E78.00 Pure hypercholesterolemia, unspecified; M17.0 Bilateral primary osteoarthritis of knee; M19.072 Primary osteoarthritis, left ankle and foot; M19.071 Primary osteoarthritis, right ankle and foot; E03.9 Hypothyroidism, unspecified; K57.30 Diverticulosis of large intestine without perforation or abscess without bleeding; E78.5 Hyperlipidemia, unspecified; E86.0 Dehydration; D64.9 Anemia, unspecified; K52.89 Other specified noninfective gastroenteritis and colitis; F03.90 Unspecified dementia, unspecified severity, without behavioral disturbance, psychotic disturbance, mood disturbance, and anxiety; I25.10 Atherosclerotic heart disease of native coronary artery without angina pectoris; F41.9 Anxiety disorder, unspecified; Z66 Do not resuscitate; Z88.0 Allergy status to penicillin; Z79.4 Long term (current) use of insulin